=== PATIENT | female | born 1930 | race Caucasian/White ===

== ENCOUNTER → 2016-11-13 | Outpatient (CLI) | payer OTHER ==
--- NOTE | 2016-11-13 16:24 | MAMMOGRAPHY REPORT ---
BILATERAL DIGITAL SCREENING MAMMOGRAM WITH CAD: 11/13/2016 CLINICAL HISTORY: Routine screening. Patient has no complaints. TECHNIQUE: Bilateral CC and MLO views were obtained. Current study was also evaluated with a Comput er Aided Detection (CAD) system. COMPARISON: Comparison is made to exams dated: 11/08/2015 mammogram, 08/15/2013 mammogram, 08/09/2011 ma mmogram, 08/04/2010 mammogram, 11/04/2014 ultrasound, and 11/04/2014 mammogram - [facility] enter. BREAST COMPOSITION: There are scattered areas of fibroglandular density in both breasts. FINDINGS: There are several scattered benign coarse calcifications in the breasts. However, there i s a possible grouping of small punctate microcalcifications in the far posterior left breast, slight ly lateral to the posterior nipple line on the CC view. These are not clearly identified on the MLO view. Additional spot magnification views are recommended. No other suspicious mass, architectural distortion or cluster of suspicious microcalcifications is s een. IMPRESSION: ACR BI-RADS CATEGORY 0: INCOMPLETE EVALUATION: NEED ADDITIONAL IMAGING EVALUATION The possible grouping of microcalcifications in the left posterior breast need additional evaluation . The patient will be called to schedule an appointment. Approximately 10% of breast cancers are not detected with mammography. A negative mammographic repor t should not delay biopsy if a clinically suggestive mass is present. Jordyn Shields M.D. ay/:11/13/2016 14:42:47 Diesel Locomotive Engineer: Leslie CONLEY(Lupe)(Hillary), [facility] letter sent: Addl Imaging 0 BI-RADS Code: ACR BI-RADS Category 0: Incomplete Evaluation: Need Additional Imaging Evaluation
== END | disposition home or self-care (01) ==
LOC: C.MAMM 14:02
PROVIDERS: ATTEND Family Medicine
DX: Z12.31 Encounter for screening mammogram for malignant neoplasm of breast (principal); R92.8 Other abnormal and inconclusive findings on diagnostic imaging of breast

== ENCOUNTER → 2016-11-24 | Outpatient (CLI) | payer OTHER ==
--- NOTE | 2016-11-24 13:33 | MAMMOGRAPHY REPORT ---
UNILATERAL LEFT DIGITAL DIAGNOSTIC MAMMOGRAM: 11/24/2016 CLINICAL HISTORY: Callback from screening mammogram for left breast calcifications. TECHNIQUE: Spot magnification left CC and ML views were obtained. COMPARISON: Comparison is made to exams dated: 11/13/2016 mammogram, 11/08/2015 mammogram, 11/04/2014 ul trasound, 11/04/2014 mammogram, 08/15/2013 mammogram, and 08/12/2012 mammogram - [facility] nter. BREAST COMPOSITION: There are scattered areas of fibroglandular density in the left breast. FINDINGS: There is a small 2 mm cluster of faint punctate calcifications seen in the left posterior breast along the posterior nipple line on the cc view, not clearly evident on the spot magnificatio n ML views. When compared to prior exams, the calcifications appear stable to the 2016 exam. Addit ionally, the calcifications have been seen on exams dating back to 2012, although it is difficult to assess for stability given differences in mammographic technique (currently using [employer] equipment , previously using [employer] equipment). Given that the calcifications have been present for years, the ca lcifications are probably benign. Recommend short interval follow-up in 6 months to confirm stabili ty on spot magnification views. IMPRESSION: ACR-BI-RADS CATEGORY 3: PROBABLY BENIGN Small 2 mm cluster of punctate calcifications in the left posterior breast has been seen going back to at least the 2012 exam, and is probably benign. Recommend follow-up diagnostic mammograms of the left breast in 6 months to confirm stability on spot magnification views. The patient has been verbally notified of the results. Approximately 10% of breast cancers are not detected with mammography. A negative mammographic repor t should not delay biopsy if a clinically suggestive mass is present. Gosia Hearn M.D. /:11/24/2016 09:48:20 Supervisor Alteration Workroom: Maria Alejandra KHANNA)(Hillary), [facility] letter sent: Follow Up Recommended 3 BI-RADS Code: ACR-BI-RADS Category 3: Probably Benign
== END | disposition home or self-care (01) ==
LOC: C.MAMM 09:19
PROVIDERS: ATTEND Family Medicine
DX: R92.1 Mammographic calcification found on diagnostic imaging of breast (principal)

== ENCOUNTER → 2017-04-18 | Outpatient (CLI) | payer OTHER ==
--- NOTE | 2017-04-18 11:50 | DIAGNOSTIC IMAGING REPORT ---
(RENAL)RETROPERITON COMP CLINICAL HISTORY: 86 years-old Female presenting with chronic kidney disease. TECHNIQUE: Real-time grayscale and limited color Doppler ultrasound imaging of the kidneys and bladder was performed. COMPARISON: None. FINDINGS: Right kidney: Normal echogenicity. Right kidney measures 11.2 cm. No hydronephrosis. No convincing evidence of calculus or mass. Normal perfusion. Left kidney: Normal echogenicity. Left kidney measures 7.2 cm. No hydronephrosis. 6 x 4 mm hyperechogenic focus at the lower pole of the left kidney with associated twinkling artifact on color Doppler consistent with calculus. Lobular relatively hypoechogenic focus at the interpolar region laterally, may represent dominant lobulations, although this is indeterminate. Normal perfusion. Bladder: No bladder wall thickening. Bilateral ureteral jets present. Other: None. IMPRESSION: 1. 6 mm left renal calculus. No hydronephrosis. 2. Lobular hypoechoic interpolar region in the left kidney may represent prominent lobulations, although this is indeterminate and would be better characterized on cross-sectional imaging. Electronically signed by: Lui Charles M.D. 04/18/2017 11:48 AM Dictated Date/Time: 04/18/2017 11:45 AM
== END | disposition home or self-care (01) ==
LOC: C.ULTR 10:41
PROVIDERS: ATTEND Internal Medicine Nephrology
DX: N18.3 Chronic kidney disease, stage 3 (moderate) (principal); N20.0 Calculus of kidney

== ENCOUNTER → 2017-05-28 | Outpatient (CLI) | payer OTHER ==
--- NOTE | 2017-05-28 13:35 | MAMMOGRAPHY REPORT ---
UNILATERAL LEFT DIGITAL DIAGNOSTIC MAMMOGRAM TOMOSYNTHESIS WITH CAD: 05/28/2017 CLINICAL HISTORY: 86-year-old woman presents for follow-up in the left breast of a small 2 mm cluster of punctate microcalcifications in the 6:00 far posterior breast. TECHNIQUE: Left CC and MLO 2-D and Surendra Cheema symphysis, Spot magnification left CC and ML views we re obtained. Current study was also evaluated with a Computer Aided Detection (CAD) system. COMPARISON: Comparison is made to exams dated: 11/24/2016 mammogram, 11/13/2016 mammogram, 11/08/2015 ma mmogram, 11/04/2014 mammogram, 08/15/2013 mammogram, and 08/12/2012 mammogram - [facility]. BREAST COMPOSITION: There are scattered areas of fibroglandular density in the left breast. FINDINGS: The parenchymal pattern of the left breast is similar to prior mammograms. There are nume salud benign rounded rim calcification scattered in the breast. A 2 mm grouping of punctate microcalc ifications is again seen in the 6:00 far posterior left breast, which is stable compared to the spot magnification views obtained 11/24/2016, and these micro-calcifications have also been present dating back to at least 08/12/2012, given slight differences in technique. Given that length of stability they are probably benign, but another short interval follow-up left diagnostic mammogram including sp ot magnification views is recommended to ensure longer stability on the spot magnification views. No other suspicious mass, architectural distortion or cluster of microcalcifications is seen. IMPRESSION: ACR-BI-RADS CATEGORY 3: PROBABLY BENIGN There is a stable 2 mm grouping of punctate microcalcifications in the 6:00 posterior left breast com pared to spot magnification views performed in November 2016 and likely dating back to at least 2012. A nother six-month follow-up left diagnostic mammogram including spot magnification views is recommende d to ensure longer stability. Annual right mammography will also be due at that time. These results and recommendations were discussed with the patient at the time of the exam. Approximately 10% of breast cancers are not detected with mammography. A negative mammographic report should not delay biopsy if a clinically suggestive mass is present. Jordyn Shields M.D. ay/:05/28/2017 11:19:33 Hand Counter: Bárbara Knee RT(R)(M), [facility] letter sent: Follow Up Recommended 3 BI-RADS Code: ACR-BI-RADS Category 3: Probably Benign
== END | disposition home or self-care (01) ==
LOC: C.MAMM 10:26
PROVIDERS: ATTEND Family Medicine
DX: R92.8 Other abnormal and inconclusive findings on diagnostic imaging of breast (principal); R92.0 Mammographic microcalcification found on diagnostic imaging of breast

== ENCOUNTER → 2017-08-17 | Outpatient (CLI) | payer OTHER ==
[2017-08-17 16:01] LABS: BLOOD UREA NITROGEN 34 mg/dl (7-18); CALCIUM 9.4 mg/dl (8.5-10.1); CARBON DIOXIDE 27 mmol/L (21-32); CREATININE 1.64 mg/dl (0.60-1.20); GLUCOSE 110 mg/dl (70-99); POTASSIUM 3.9 mmol/L (3.5-5.1); SODIUM 136 mmol/L (136-145)
== END | disposition home or self-care (01) ==
LOC: C.LAB1850 14:09
PROVIDERS: ATTEND Internal Medicine Nephrology
DX: N18.3 Chronic kidney disease, stage 3 (moderate) (principal); I12.9 Hypertensive chronic kidney disease with stage 1 through stage 4 chronic kidney disease, or unspecified chronic kidney disease; E87.5 Hyperkalemia

== ENCOUNTER → 2017-11-16 | Outpatient (CLI) | payer OTHER ==
--- NOTE | 2017-11-19 07:45 | MAMMOGRAPHY REPORT ---
BILATERAL DIGITAL DIAGNOSTIC MAMMOGRAM TOMOSYNTHESIS WITH CAD: 11/16/2017 CLINICAL HISTORY: Short interval follow-up of left breast calcifications. Routine mammography of the right breast. The patient reports no current complaints. TECHNIQUE: Breast tomosynthesis in addition to standard 2D mammography was performed. Current study was also evaluated with a Computer Aided Detection (CAD) system. Bilateral CC and MLO 2D and tomosyn thesis images and spot magnification left CC and ML views were obtained. COMPARISON: Comparison is made to exams dated: 05/28/2017 mammogram, 11/24/2016 mammogram, 11/13/2016 mammogram, 11/08/2015 mammogram, 11/04/2014 mammogram, and 08/15/2013 mammogram - [facility] nter. BREAST COMPOSITION: There are scattered areas of fibroglandular density in both breasts. FINDINGS: Again noted is a small 2 mm grouping of punctate benign-appearing calcifications in the le ft posterior central/6:00 breast. The calcifications are stable on spot magnification views dated 2016, and are likely not significantly changed dating back to the 2012 exam when accounting for d ifferences in mammographic technique. The calcifications are considered benign given the morphology and long-term stability. The remainder of both breasts are stable compared to prior exams, without s uspicious masses, calcifications, or areas of architectural distortion noted. Scattered bilateral be nign-appearing calcifications are not significantly changed. Circular markers tanisha multiple bilatera l moles. IMPRESSION: ACR BI-RADS CATEGORY 2: BENIGN Small 2 mm group of benign-appearing calcifications in the left posterior breast are stable compared to the November 2016 exam and likely also the 2012 exam, and are considered benign given long-term stabi lity. There is no mammographic evidence of malignancy in either breast. A 1 year screening mammogram is recommended. The patient has been verbally notified of the results. Approximately 10% of breast cancers are not detected with mammography. A negative mammographic report should not delay biopsy if a clinically suggestive mass is present. Gosia Hearn M.D. /:11/16/2017 10:48:39 Nursing Specialist: Christi CONLEY(Lupe)(Hillary), [facility] letter sent: Normal 1/2 BI-RADS Code: ACR BI-RADS Category 2: Benign
== END | disposition home or self-care (01) ==
LOC: C.MAMM 09:52
PROVIDERS: ATTEND Family Medicine
DX: R92.1 Mammographic calcification found on diagnostic imaging of breast (principal)

== ENCOUNTER → 2018-01-22 | Outpatient (CLI) | payer OTHER ==
[~2018-01-22] MED LIST: ACET-24 PO; ADVIN25/60 INH; ALPOPSD OPB; ASPI81TA28 PO; CHOL1000 PO; CLC100 PO; CTP/1 PO; DILT120C68 PO; LATA0.009 OP; LVMI SQ; MULT-506 PO; RXC5 PO; SPRIN/30 INH; TMPXEOPS OPB
[2018-01-22 14:35] LABS: BLOOD UREA NITROGEN 25 mg/dl (7-18); CALCIUM 9.1 mg/dl (8.5-10.1); CARBON DIOXIDE 26 mmol/L (21-32); CREATININE 1.42 mg/dl (0.60-1.20); GLUCOSE 122 mg/dl (70-99); SODIUM 137 mmol/L (136-145)
--- NOTE | 2018-02-12 12:40 | CODING QUERY NO DIAGNOSIS ---
Valid Physician Order Needed A valid physician order must be submitted in order to properly bill for the service(s) provided, including date of service(s), valid diagnosis, and physician signature. If these tests are done on a recurring basis the original physican order must be submitted in order to code and bill for the service(s) provided. Please fax us the original, signed physician order so that we may expedite billing to [phone] DOS 01/22/18 * PARTIAL RENAL PROFILE Thank you Cecilia [facility] Information Management
== END | disposition home or self-care (01) ==
LOC: C.LABSPEC 13:34
PROVIDERS: ATTEND Family Medicine
DX: E11.9 Type 2 diabetes mellitus without complications (principal); N18.9 Chronic kidney disease, unspecified

== ENCOUNTER 2018-03-15 10:27 | Emergency (ER) | payer OTHER ==
[~2018-03-15] VITALS: Ht 162.6 cm; Wt 76.4 kg
[2018-03-15 10:33] VITALS: TEMP 36.8; Ht 162.6 cm; Wt 76.4 kg
--- NOTE | 2018-03-15 11:00 | EMERGENCY ROOM VISIT NOTE ---
History Report prepared by Minoo: Nadine Lawson Under the Supervision of: Dr. Ena Ziegler M.D. First contact with patient: 10:42 Chief Complaint: INFECTION Stated Complaint: CELLULITIS IN BOTH LEGS History of Present Illness The patient is an 87 year old female who presents to the Emergency Room with complaints of a bilateral leg infection beginning 1 month ago. The patient states that she had a shoulder replacement and that since she got home on January 14 she has had a left leg infection. She reports that her right leg then began to get infected the end of February. She states that she was placed on 2 antibiotics and reports that she is still on Bactrim. She denies having any chest pain, shortness of breath, new cough, and fevers. The patient states that she has been able to walk. The patient denies being on blood thinners. She states that she has chronic kidney disease and diabetes. The patient denies a history of a blood clot but states that she had a Doppler of her left leg done on February 21. The patient states that she has compression stockings but that she has not been wearing them. The patient denies a history of any cardiac problems including heart failure, heart attacks, and stents. Source of History: patient Onset: 1 month ago Position: leg (bilateral) Quality: other (infection) Timing: constant Associated Symptoms: No fevers, No cough, No chest pain, No SOB Review of Systems See HPI for pertinent positives & negatives. A total of 10 systems reviewed and were otherwise negative. Past Medical & Surgical Medical Problems: (1) Chronic kidney disease (2) Diabetes (3) DJD of right shoulder Family History Cancer Diabetes mellitus Diabetes mellitus Gallbladder disease Kidney disease Social History Smoking Status: Never Smoker Drug Use: none Marital Status: Housing Status: lives with family Current/Historical Medications Scheduled Aspirin (Aspirin Ec), 81 MG PO QPM Brimonidine Tartrate (Brimonidine Tartrate), 1 DROP OPB BID Cholecalciferol (Vitamin D3), 1 TAB PO QAM Clonidine Hcl (Catapres), 0.15 MG PO HS Diltiazem Hcl (Cardizem), 80 MG PO BID Furosemide (Lasix), 20 MG PO q am Insulin Detemir (Levemir), 14 UNITS SQ QPM Latanoprost (Xalatan 0.005% Oph Zeina), 1 DROPS OP QPM Multivitamin (Multivitamin), 1 TAB PO QAM Sulfa/Trimethoprim (Bactrim Ds 800MG/160MG), 0.5 TAB PO BID Timolol Maleate (Timolol Gfs 0.5% (Generic For Timoptic-Xe)), 1 DROP OPB BID Triamcinolone Acetonide (Topic (Triamcinolone Acet 0.025%), 1 APPLN TOP BID Triamterene/Hctz (Dyazide 37.5MG/25MG), 1 TAB PO DAILY Allergies Coded Allergies: No Known Allergies (Verified , 01/11/18) Physical Exam Vital Signs Date Time Temp Pulse Resp B/P (MAP) Pulse Ox O2 Delivery O2 Flow Rate FiO2 03/15/18 16:56 86 20 162/88 93 03/15/18 14:22 67 20 186/81 94 Room Air 03/15/18 12:23 56 20 158/77 94 Room Air 03/15/18 12:16 54 03/15/18 10:33 36.8 74 20 182/71 98 Room Air Physical Exam Vital signs reviewed. General: Elderly well-appearing female, in no significant distress. HEENT: No scleral icterus, PERRLA, neck supple. Atraumatic. Cardiovascular: Regular rate and rhythm, no extra sounds. Pulmonary: Clear to auscultation bilaterally, normal work of breathing. Abdomen: Soft, nontender, nondistended, positive bowel sounds. Musculoskeletal: Atraumatic. Bilateral lower extremities with right greater than left 2+ pitting edema with erythema to the mid shi. Positive warmth. No lymphangitic streaking. Neurologic: Patient awake alert and oriented x 3 Skin: Warm, dry, no rash Medical Decision & Procedures ER Provider Diagnostic Interpretation: Radiology results as stated below per my review and radiologist interpretation. VENOUS DOPPLER LWR EXT BILA CLINICAL HISTORY: 87 years-old Female presenting with BLE EDEMA. TECHNIQUE: Real-time grayscale and color and spectral Doppler ultrasound imaging of the veins of the bilateral lower extremities was performed. Compression and augmentation were also utilized. COMPARISON: 05/10/2011. FINDINGS: RIGHT: Common femoral vein: Patent. Greater saphenous vein: Patent. Deep femoral vein: Patent. Femoral vein: Patent. Popliteal vein: Patent. Calf veins: Patent allowing for subcutaneous edema. LEFT: Common femoral vein: Patent. Greater saphenous vein: Patent. Deep femoral vein: Patent. Femoral vein: Patent. Popliteal vein: Patent. Calf veins: Patent allowing for subcutaneous edema. Other: Anechoic popliteal cyst in the right popliteal fossa. Subcutaneous edema noted in the bilateral lower extremities. IMPRESSION: No evidence of deep venous thrombosis. Electronically signed by: Lui Charles M.D. 03/15/2018 1:50 PM Dictated Date/Time: 03/15/2018 1:47 PM Laboratory Results 03/15/18 11:15 Red Blood Count 3.89, Mean Corpuscular Volume 99.7, Mean Corpuscular Hemoglobin 32.9, Mean Corpuscular Hemoglobin Concent 33.0, Mean Platelet Volume 9.5, Neutrophils (%) (Auto) 52.3, Lymphocytes (%) (Auto) 36.1, Monocytes (%) (Auto) 8.8, Eosinophils (%) (Auto) 2.3, Basophils (%) (Auto) 0.4, Neutrophils # (Auto) 3.60, Lymphocytes # (Auto) 2.49, Monocytes # (Auto) 0.61, Eosinophils # (Auto) 0.16, Basophils # (Auto) 0.03 03/15/18 11:15 Test 03/15/18 11:15 03/15/18 13:55 03/15/18 14:29 White Blood Count 6.90 K/uL (4.8-10.8) Red Blood Count 3.89 M/uL (4.2-5.4) Hemoglobin 12.8 g/dL (12.0-16.0) Hematocrit 38.8 % (37-47) Mean Corpuscular Volume 99.7 fL (80-100) Mean Corpuscular Hemoglobin 32.9 pg (25-34) Mean Corpuscular Hemoglobin Concent 33.0 g/dl (32-36) Platelet Count 250 K/uL (130-400) Mean Platelet Volume 9.5 fL (7.4-10.4) Neutrophils (%) (Auto) 52.3 % Lymphocytes (%) (Auto) 36.1 % Monocytes (%) (Auto) 8.8 % Eosinophils (%) (Auto) 2.3 % Basophils (%) (Auto) 0.4 % Neutrophils # (Auto) 3.60 K/uL (1.4-6.5) Lymphocytes # (Auto) 2.49 K/uL (1.2-3.4) Monocytes # (Auto) 0.61 K/uL (0.11-0.59) Eosinophils # (Auto) 0.16 K/uL (0-0.5) Basophils # (Auto) 0.03 K/uL (0-0.2) RDW Standard Deviation 46.4 fL (36.4-46.3) RDW Coefficient of Variation 12.8 % (11.5-14.5) Immature Granulocyte % (Auto) 0.1 % Immature Granulocyte # (Auto) 0.01 K/uL (0.00-0.02) Prothrombin Time 10.7 SECONDS (9.0-12.0) Prothromb Time International Ratio 1.0 (0.9-1.1) Activated Partial Thromboplast Time 24.3 SECONDS (21.0-31.0) Partial Thromboplastin Ratio 0.9 Anion Gap 6.0 mmol/L (3-11) Est Creatinine Clear Calc Drug Dose 27.4 ml/min Estimated GFR () 36.4 Estimated GFR (Non- 31.4 BUN/Creatinine Ratio 13.7 (10-20) Calcium Level 9.1 mg/dl (8.5-10.1) Magnesium Level 1.9 mg/dl (1.8-2.4) Total Bilirubin 0.5 mg/dl (0.2-1) Direct Bilirubin 0.1 mg/dl (0-0.2) Aspartate Amino Transf (AST/SGOT) 25 U/L (15-37) Alanine Aminotransferase (ALT/SGPT) 35 U/L (12-78) Alkaline Phosphatase 85 U/L (45-117) Total Protein 7.5 gm/dl (6.4-8.2) Albumin 3.6 gm/dl (3.4-5.0) Urine Color YELLOW Urine Appearance CLEAR (CLEAR) Urine pH 7.0 (4.5-7.5) Urine Specific Zoe 1.006 (1.000-1.030) Urine Protein NEG (NEG) Urine Glucose (UA) NEG (NEG) Urine Ketones NEG (NEG) Urine Occult Blood NEG (NEG) Urine Nitrite NEG (NEG) Urine Bilirubin NEG (NEG) Urine Urobilinogen NEG (NEG) Urine Leukocyte Esterase TRACE (NEG) Urine WBC (Auto) 1-5 /hpf (0-5) Urine RBC (Auto) 0-4 /hpf (0-4) Urine Hyaline Casts (Auto) 0 /lpf (0-5) Urine Epithelial Cells (Auto) 10-20 /lpf (0-5) Urine Bacteria (Auto) NEG (NEG) Bedside Glucose 88 mg/dl (70-90) Laboratory results per my review. Medications Administered Medications (Trade) Dose Ordered Sig/Pavel Route Start Time Stop Time Status Last Admin Dose Admin Furosemide (Lasix Inj) 40 mg NOW STAT IV 03/15/18 15:05 03/15/18 15:06 DC 03/15/18 16:46 40 MG Triamcinolone Acetonide (Kenalog 0.1% Oint) 1 appln NOW STAT EXT 03/15/18 15:05 03/15/18 15:06 DC 03/15/18 16:46 1 APPLN ECG Per My Interpretation Indication: other (infection) Rate (beats per minute): 64 Rhythm: normal sinus Findings: no acute ischemic change, no ectopy, other (left axis deviation) ED Course 1049: Past medical records reviewed. The patient was evaluated in room C9. A complete history and physical examination was performed. 1500: Upon reevaluation, the patient appeared to have improvement of her symptoms. I discussed findings with her. She verbalized agreement of the treatment plan. She was discharged home. Medical Decision Differential diagnosis: Etiologies such as cellulitis, abscess, MRSA infection, DVT, necrotizing fasciitis, dermatitis, drug eruption, stasis dermatitis, as well as others were entertained.. This patient was evaluated and appeared to be in no significant distress. She has almost completed 2 different courses of antibiotics, Keflex and now Bactrim. Patient has no fever, no lymphangitic streaking. Ultrasounds of the bilateral lower extremities are negative for DVT. There is no elevation of the white blood cell count. I suspect the patient's symptoms are related to stasis dermatitis. She was given 40 mg of IV Lasix and will be using triamcinolone cream as well as LINDY stockings. Patient was given a prescription for 20 mg of Lasix daily for the next several days. Due to her history of chronic renal insufficiency, she will have repeat laboratory work done within the next week. She does have an appointment pending with her experimental assembler within that timeframe. Patient was given wound care instructions and will return to the ED for worsening of symptoms or any medical concerns. Medication Reconcilliation Current Medication List: was personally reviewed by me Blood Pressure Screening Patient's blood pressure: Elevated blood pressure Blood pressure disposition: Referred to PCP Impression Primary Impression: Stasis dermatitis of both legs Scribe Attestation The scribe's documentation has been prepared under my direction and personally reviewed by me in its entirety. I confirm that the note above accurately reflects all work, treatment, procedures, and medical decision making performed by me. Departure Information Dispostion Home / Self-Care Prescriptions Furosemide (LASIX) 20 Mg Tab 20 MG PO q am for 10 Days, #10 TAB Prov: Ena Ziegler M.D. 03/15/18 Triamcinolone Acetonide (Topic (TRIAMCINOLONE ACET 0.025%) 0.025 % Oin 1 APPLN TOP BID, #30 GM 1 Refill Prov: Ena Ziegler M.D. 03/15/18 Referrals Dana Ann M.D. (PCP) Forms HOME CARE DOCUMENTATION FORM, IMPORTANT VISIT INFORMATION, WORK / SCHOOL INSTRUCTIONS Patient Instructions My [facility] Additional Instructions Diagnosis: Stasis dermatitis of the bilateral legs Triamcinolone cream 1-2 times daily to the bilateral legs. Wear compression hose during the day or while on your feet. Please elevate the feet as much as possible. Lasix 20 mg daily in the morning. Follow-up with your experimental assembler next week for reevaluation, high blood work done 2 days prior to your appointment. Return to the emergency department for worsening of symptoms or any medical concerns.
[2018-03-15] MEDS ORDERED: TRIA37.5 PO (11:02)
[2018-03-15] MEDS ORDERED: CLON0.3T PO (11:02)
[2018-03-15] MEDS ORDERED: DILT40TA2 PO (11:02)
[2018-03-15] MEDS ORDERED: SULF800T23 PO (11:02)
[2018-03-15 11:36] LABS: BASO % 0.4 %; BASO ABS # 0.03 K/uL (0-0.2); EOS % 2.3 %; EOS ABS # 0.16 K/uL (0-0.5); HEMATOCRIT 38.8 % (37-47); HEMOGLOBIN 12.8 g/dL (12.0-16.0); IG# 0.01 K/uL (0.00-0.02); LYMPH % 36.1 %; LYMPH ABS # 2.49 K/uL (1.2-3.4); MEAN CELL VOLUME 99.7 fL (80-100); MEAN CORPUSCULAR HEMOGLOBIN 32.9 pg (25-34); MEAN PLATELET VOLUME 9.5 fL (7.4-10.4); MONO % 8.8 %; MONO ABS # 0.61 K/uL (0.11-0.59); NEUT % 52.3 %; PLATELET COUNT 250 K/uL (130-400); RED CELL DISTRIBUTION WIDTH CV 12.8 % (11.5-14.5); RED CELL DISTRIBUTION WIDTH SD 46.4 fL (36.4-46.3)
[2018-03-15 11:46] LABS: PTT PATIENT 24.3 SECONDS (21.0-31.0)
[2018-03-15 11:56] LABS: ALBUMIN 3.6 gm/dl (3.4-5.0); CALCIUM 9.1 mg/dl (8.5-10.1); CREATININE 1.5 mg/dl (0.60-1.20); POTASSIUM 4.3 mmol/L (3.5-5.1); TOTAL PROTEIN 7.5 gm/dl (6.4-8.2)
--- NOTE | 2018-03-15 13:51 | DIAGNOSTIC IMAGING REPORT ---
VENOUS DOPPLER LWR EXT BILA CLINICAL HISTORY: 87 years-old Female presenting with BLE EDEMA. TECHNIQUE: Real-time grayscale and color and spectral Doppler ultrasound imaging of the veins of the bilateral lower extremities was performed. Compression and augmentation were also utilized. COMPARISON: 05/10/2011. FINDINGS: RIGHT: Common femoral vein: Patent. Greater saphenous vein: Patent. Deep femoral vein: Patent. Femoral vein: Patent. Popliteal vein: Patent. Calf veins: Patent allowing for subcutaneous edema. LEFT: Common femoral vein: Patent. Greater saphenous vein: Patent. Deep femoral vein: Patent. Femoral vein: Patent. Popliteal vein: Patent. Calf veins: Patent allowing for subcutaneous edema. Other: Anechoic popliteal cyst in the right popliteal fossa. Subcutaneous edema noted in the bilateral lower extremities. IMPRESSION: No evidence of deep venous thrombosis. Electronically signed by: Lui Charles M.D. 03/15/2018 1:50 PM Dictated Date/Time: 03/15/2018 1:47 PM
[2018-03-15] MEDS ORDERED: FUROSEMIDE 40 MG/4 ML VIAL IV STA (15:05)
[2018-03-15] MEDS ORDERED: TRIAMCINOLONE ACET 0.1% OINT 15 GM TUBE EXT STA (15:05)
[2018-03-15] MEDS ORDERED: TRMO2580 TOP (15:40)
[2018-03-15] MEDS ORDERED: FURO20TA PO (15:40)
[2018-03-15 16:56] VITALS: BP 162/88; PULSE 86; O2SAT 93
== END 2018-03-15 16:58 | disposition home or self-care (01) ==
LOC: C.EDB 10:28 → C.EDC 16:58
DX: L30.9 Dermatitis, unspecified (principal); N18.9 Chronic kidney disease, unspecified; E11.9 Type 2 diabetes mellitus without complications; M19.011 Primary osteoarthritis, right shoulder; Z79.82 Long term (current) use of aspirin; Z79.2 Long term (current) use of antibiotics; Z79.899 Other long term (current) drug therapy

== ENCOUNTER → 2018-03-20 | Outpatient (CLI) | payer OTHER ==
[~2018-03-20] MED LIST changes: -ACET-24 PO; -ADVIN25/60 INH; -CLC100 PO; +CLON0.3T PO; -CTP/1 PO; -DILT120C68 PO; +DILT40TA2 PO; +FURO20TA PO; -RXC5 PO; -SPRIN/30 INH; +SULF800T23 PO; +TRIA37.5 PO; +TRMO2580 TOP
[2018-03-20 11:07] LABS: ALBUMIN 3.6 gm/dl (3.4-5.0); BLOOD UREA NITROGEN 27 mg/dl (7-18); CALCIUM 9.3 mg/dl (8.5-10.1); CARBON DIOXIDE 30 mmol/L (21-32); CREATININE 1.44 mg/dl (0.60-1.20); GLUCOSE 134 mg/dl (70-99); PHOSPHORUS 3.1 mg/dl (2.5-4.9); POTASSIUM 4.2 mmol/L (3.5-5.1); SODIUM 137 mmol/L (136-145)
== END | disposition home or self-care (01) ==
LOC: C.LAB1850 09:28
PROVIDERS: ATTEND Internal Medicine Nephrology
DX: E87.5 Hyperkalemia (principal)

== ENCOUNTER 2021-09-21 12:02 | Inpatient (IN) ==
[2021-09-21 12:50] LABS: Basophils # (auto) 0.03 K/uL (0-0.2); Basophils % (auto) 0.3 %; Eosinophils # (auto) 0.04 K/uL (0-0.5); Eosinophils % (auto) 0.3 %; Hematocrit (blood only) 34.2 % (37-47); Hemoglobin 10.4 g/dL (12.0-16.0); Immature Granulocytes # (auto) 0.03 K/uL (0.00-0.02); Immature Granulocytes % (auto) 0.3 %; Lymphocytes # (auto) 1.35 K/uL (1.2-3.4); Lymphocytes % (auto) 11.7 %; Mean Corpuscular Hemoglobin 31.3 pg (25-34); Mean Corpuscular Hgb Conc 30.4 g/dL (32-36); Mean Platelet Volume 9.5 fL (7.4-10.4); Monocytes % (auto) 10.4 %; Neutrophils # (auto) 8.89 K/uL (1.4-6.5); Platelet Count 351 K/uL (130-400); RDW Coefficient of Variation 16.9 % (11.5-14.5); RDW Standard Deviation 63.6 fL (36.4-46.3); Red Blood Count 3.32 M/uL (4.2-5.4); White Blood Count 11.54 K/uL (4.8-10.8)
--- NOTE | 2021-09-21 12:51 | Emergency Department Note ---
Impression & Plan Acute pain of left hip, Weakness, Hypercalcemia, Metastatic cancer, Fall, Multiple episodes of hypoglycemia ED Provider Note Provider: Josué Mccauley MD DATE OF SERVICE: 09/18/2021 CHIEF COMPLAINT: Fall, low blood sugar HISTORY OF PRESENT ILLNESS: Patient is a 89-year-old female history of type 2 diabetes on insulin, CKD, and a relapse of weeks general decline presenting here via ambulance today after low blood sugar this morning. Patient evidently had a low blood sugar yesterday at 31 and EMS was called and improved with the D10 infusion and she stayed at home. Patient has not been eating well over the last several weeks and been having worsening . Low back and left hip pain. Has been working with outpatient doctor for this and had a recent lumbar CT questioning some possible lesions in lymph nodes and a schedule for additional imaging this coming Sunday. Still taking NovoLog twice daily. Not much to eat earlier. Blood sugar dropped again and she slid to the floor. Did not fall or strike her head. Denies any head pain or neck pain. Complains mainly pain of the low back and left hip region. Patient is not been ambulating that well. Patient denies chest pain or shortness of breath. No fevers reported. Blood sugars improved after additional D10 today. REVIEW OF SYSTEMS: A total of 10 review of systems was obtained and negative except as stated above in the HPI. PAST MEDICAL HISTORY: As noted above MEDICATIONS: Reviewed home medication list SOCIAL HISTORY: Lives at home with son, former smoker PHYSICAL EXAM: GENERAL: alert and oriented in no acute distress on stretcher Head: normocephalic and atraumatic EYES: No injection, discharge or icterus. NECK: Trachea midline. Supple. ENT: Mucous membranes pink and moist. LUNGS: Airway patent. No retractions. Breath sounds clear HEART: Regular rate and rhythm. No chest wall tenderness ABDOMEN: Soft and non-tender, without guarding or rebound. SKIN: Acyanotic, warm, dry, without rashes EXTREMITIES: Without swelling, tenderness or deformity except some pain in the left hip with movement active or passive. No significant swelling or tenderness of the bilateral knees, calves, or feet. NEUROLOGICAL: No focal deficits. No aphasia. No facial droop or slurred speech. Normal strength and tone in the extremities. Sensation to gross touch normal. EK bpm normal sinus rhythm. Left axis. No PVC or PAC. No acute ST segment elevation or depression. QTC 400. CONTINUOUS CARDIAC MONITORING: was ordered and showed a heart rate of 60s-80s bpm in normal sinus rhythm GCS 15. Patient's laboratory studies and imaging reviewed. Differential includes traumatic, infection, dehydration, metabolic abnormality, hypo/hyperglycemia, electrolyte disturbance, anemia, hypoxia, cardiac sources, intracerebral event, toxicologic, neurologic, as well as other pathologies. IMPRESSION/MEDICAL DECISION MAKING: Patient with episode of hypoglycemia yesterday and today. General decline last several weeks. Outpatient CT due to lower back pain was previously obtained questioning possible lytic lesions and lymph node or possible oncological process. Patient not eating so well and while on standing insulin likely precipitating these hypoglycemic events. Patient likely needs reduction of her standing insulin regimen. Basic blood work-up was completed here to look for other abnormalities signs of worsened renal function. Given that she did slide to the ground of the question of possible underlying oncological lesions in the back, CT of the chest as well as the abdomen pelvis were obtained including the left hip. Prior left hip replacement I doubt this is fractured. There is no shortening of the lower extremities or acute numbness newly reported in lower legs. I doubt acute spinal cord injury. Did not strike her head and on high risk medications having symptoms in discussion with the patient and daughter will avoid additional imaging of the head and neck at this time. Blood work with slightly worsened anemia. Renal function has a somewhat better than previous. No LFT abnormalities. TSH within normal limits. CT imaging per radiology without acute fractures but evidence of likely widely metastatic disease with masses in the bilateral breasts and multiple enlarged lymph nodes. Evidence of extensive disease again around the left kidney towards the left acetabular region. Informed the patient and daughter bedside of the findings. Discussed high likelihood of an oncological process and need for further work-up for this. Patient has not been significantly hypoxic after initial assessment here in the ER. Patient given additional Tylenol and fentanyl but still with s ignificant pain in the left hip. Has been on a fairly decent regimen of hydrocodone at home. Given her difficulty ambulating discussed with the patient and daughter her ability to go home. Patient has concerns regarding this. Patient likely needs a reduced insulin regimen for her hypoglycemic episodes but also a pain control regimen for function ability. Will again need outpatient follow-up with oncology and biopsy to further determine etiology of masses. Patient evidently deferred prior work-up from mammography 7 years ago. Mild hypercalcemia and given some IV fluid here. Ambulatory dysfunction and poor pain control the hospitalist was contacted for further pain control and care her e. Patient and daughter aware of need for further oncological follow-up. DIAGNOSIS: Hypoglycemic episode, fall, low back/left hip pain, hypercalcemia, ambulatory dysfunction, multiple masses concerning for metastatic cancer DISPOSITION: Being evaluated by hospitalist Patient was agreeable with this plan. Past Med/Surg History Medical History (Updated 09/21/21 @ 17:25 by Josué Mccauley M.D.) Chronic kidney disease, stage 3 Chronic obstructive pulmonary disease (COPD) Diabetes mellitus type 2 in nonobese Essential hypertension Osteoarthritis Surgical History S/p reverse total shoulder arthroplasty S/P total hip arthroplasty Family History Denies family history of Kidney disease Social History Smoking Status: Current every day smoker Tobacco Type: Cigarettes Current Living Situation: Family Current Living Situation Comment: lives with son Feels Safe at Home: Yes Allergies Allergies Allergy/AdvReac Type Severity Reaction Status Date / Time No Known Allergies Allergy Verified 09/21/21 15:01 Home Meds Home Medications Medication Instructions Recorded Confirmed aspirin 81 mg tablet,delayed 81 mg PO DAILY tab 03/18/19 09/21/21 release brimonidine 0.2 % eye drops 1 drops OP BID ml 03/18/19 09/21/21 diltiazem HCl 90 mg tablet 90 mg PO TID tab 03/18/19 09/21/21 latanoprost 0.005 % eye drops 1 drops OP HS ml 03/18/19 09/21/21 multivitamin (Daily Multi-Vitamin) 1 tab PO DAILY 03/18/19 09/21/21 glucos sul [id number] 1 cap PO BID 04/01/19 09/21/21 [Glucosamine Chondroitin] cholecalciferol (vitamin D3) 25 25 mcg PO DAILY 10/03/19 09/21/21 mcg (1,000 unit) capsule fluticasone 250 mcg-salmeterol 50 1 puffs INH BID 10/03/19 09/21/21 mcg/dose blistr powdr for inhalation (Advair Diskus) insulin aspar prot-insulin aspart 10 units SQ BID 12/26/19 09/21/21 100 unit/mL (70-30) subcutaneous pen (Novolog Mix 70-30FlexPen U-100) dorzolamide 2 %-timolol 0.5 % (PF) 1 drp OPHTHALMIC (EYE) BID 04/26/20 09/21/21 eye drops triamcinolone acetonide 0.1 % 1 applic TOPICAL BID 04/07/21 09/21/21 topical cream Previous Rx's Medication Instructions Recorded clonidine HCl 0.1 mg tablet 0.1 mg PO DAILY #90 tab 04/07/21 vitamin B complex 1 tab PO DAILY #90 tab 04/07/21 lisinopril 10 mg tablet 10 mg PO DAILY #90 tab 05/17/21 Results & Data (ED) Vital Signs Vital Signs - 24 hr 09/21/21 12:07 09/21/21 12:50 09/21/21 16:49 Temperature 36.6 C Temperature Source Oral Pulse Rate 61 58 L 77 Respiratory Rate 20 20 20 Respiratory Effort / Characteristics Non-Labored Spontaneous Respiratory Depth Normal Respiratory Pattern Regular Blood Pressure 167/65 H 154/102 H Blood Pressure Mean 99 119 Blood Pressure Position Sitting Pulse Oximetry 98 95 98 Oxygen Delivery Method Room Air Nasal Cannula Nasal Cannula Oxygen Flow Rate 2 2 Sepsis Recent Fever Within 48 Hours No Sepsis New/Unexplained Change in Mental Status N/A Sepsis Action Taken by Nursing No Action Required Laboratory Data Result diagrams: 09/21/21 12:29 09/21/21 12:29 Lab Results 09/21/21 09/21/21 09/21/21 Range/Units 12:07 12:29 12:29 WBC 11.54 H (4.8-10.8) K/uL RBC 3.32 L (4.2-5.4) M/uL Hgb 10.4 L (12.0-16.0) g/dL Hct 34.2 L (37-47) % MCV 103.0 H (80-100) fL MCH 31.3 (25-34) pg MCHC 30.4 L (32-36) g/dL RDW Std Deviation 63.6 H (36.4-46.3) fL RDW Coeff of Tyler 16.9 H (11.5-14.5) % Plt Count 351 (130-400) K/uL MPV 9.5 (7.4-10.4) fL Immature Gran % (Auto) 0.3 % Neut % (Auto) 77.0 % Lymph % (Auto) 11.7 % [place] % (Auto) 10.4 % Eos % (Auto) 0.3 % Baso % (Auto) 0.3 % Neut # (Auto) 8.89 H (1.4-6.5) K/uL Lymph # (Auto) 1.35 (1.2-3.4) K/uL [place] # (Auto) 1.20 H (0.11-0.59) K/uL Eos # (Auto) 0.04 (0-0.5) K/uL Baso # (Auto) 0.03 (0-0.2) K/uL Immature Gran # (Auto) 0.03 H (0.00-0.02) K/uL Sodium 140 (136-145) mmol/L Potassium 4.1 (3.5-5.1) mmol/L Chloride 108 H (98-107) mmol/L Carbon Dioxide 27 (21-32) mmol/L Anion Gap 5 (3-11) BUN 31 H (6-23) mg/dl Creatinine 1.66 H (0.6-1.2) mg/dl Est Cr Clr Drug Dosing 23.3 ml/min Est GFR ( Amer) 31.6 ml/min Est GFR (Non-Af Amer) 27.2 ml/min BUN/Creatinine Ratio 18.7 (10-20) Glucose 85 (70-99(Fasting)) mg/dl POC Glucose 155 H (70-99) mg/dl Calcium 11.6 H (8.5-10.1) mg/dl Magnesium 2.2 (1.7-2.4) mg/dl Total Bilirubin 0.5 (0.2-1.0) mg/dl AST 38 (13-39) U/L ALT 22 (7-52) U/L Alkaline Phosphatase 115 H (34-104) U/L Troponin I 0.03 (0-0.04) ng/ml Total Protein 6.4 (6.0-8.3) gm/dl Albumin 3.1 L (3.4-5.0) gm/dl Globulin 3.3 (2.5-4.0) gm/dl Albumin/Globulin Ratio 0.9 (0.9-2) TSH (0.300-4.500) uIu/ml 09/21/21 Range/Units 12:29 WBC (4.8-10.8) K/uL RBC (4.2-5.4) M/uL Hgb (12.0-16.0) g/dL Hct (37-47) % MCV (80-100) fL MCH (25-34) pg MCHC (32-36) g/dL RDW Std Deviation (36.4-46.3) fL RDW Coeff of Tyler (11.5-14.5) % Plt Count (130-400) K/uL MPV (7.4-10.4) fL Immature Gran % (Auto) % Neut % (Auto) % Lymph % (Auto) % [place] % (Auto) % Eos % (Auto) % Baso % (Auto) % Neut # (Auto) (1.4-6.5) K/uL Lymph # (Auto) (1.2-3.4) K/uL [place] # (Auto) (0.11-0.59) K/uL Eos # (Auto) (0-0.5) K/uL Baso # (Auto) (0-0.2) K/uL Immature Gran # (Auto) (0.00-0.02) K/uL Sodium (136-145) mmol/L Potassium (3.5-5.1) mmol/L Chloride (98-107) mmol/L Carbon Dioxide (21-32) mmol/L Anion Gap (3-11) BUN (6-23) mg/dl Creatinine (0.6-1.2) mg/dl Est Cr Clr Drug Dosing ml/min Est GFR ( Amer) ml/min Est GFR (Non-Af Amer) ml/min BUN/Creatinine Ratio (10-20) Glucose (70-99(Fasting)) mg/dl POC Glucose (70-99) mg/dl Calcium (8.5-10.1) mg/dl Magnesium (1.7-2.4) mg/dl Total Bilirubin (0.2-1.0) mg/dl AST (13-39) U/L ALT (7-52) U/L Alkaline Phosphatase (34-104) U/L Troponin I (0-0.04) ng/ml Total Protein (6.0-8.3) gm/dl Albumin (3.4-5.0) gm/dl Globulin (2.5-4.0) gm/dl Albumin/Globulin Ratio (0.9-2) TSH 1.757 (0.300-4.500) uIu/ml Administered Medications Discontinued Medications Acetaminophen (Acetaminophen 500 Mg Tab) 1,000 mg PO NOW STA Stop: 09/21/21 14:37 Last Admin: 09/21/21 15:36 Dose: 1,000 mg Documented by: [id number] Fentanyl Citrate (Fentanyl Citrate 100 Mcg/2 Ml Vial) 50 mcg IV NOW STA Stop: 09/21/21 13:21 Last Admin: 09/21/21 13:36 Dose: 50 mcg Documented by: [id number] Fentanyl Citrate (Fentanyl Citrate 100 Mcg/2 Ml Vial) 100 mcg IV NOW STA Stop: 09/21/21 14:35 Last Admin: 09/21/21 15:37 Dose: 100 mcg Documented by: [id number] Sodium Chloride (Nss 1000ml) 1,000 mls @ 999 mls/hr IV .Q1H1M ONE Stop: 09/21/21 16:35 Last Admin: 09/21/21 16:33 Dose: 999 mls/hr Documented by: [id number] Imaging Data Radiologist's Impression: Abdomen/Pelvis CT 09/21/21 12:41 CT abd pelvis wo con CLINICAL HISTORY: fall, weak, low back pain to L hip TECHNIQUE: Helical axial images of the abdomen and pelvis were obtained. Automated dose lowering techniques and/or adjustment according to patient size were utilized for this exam. This exam was performed without intravenous contrast. COMPARISON: None available at the time of this dictation. FINDINGS: Lower chest: For findings above the diaphragm, please see CT chest performed same day. Liver: Numerous hypodense lesions are again seen in the liver. Most prominent measure 3.6 cm in segment IVb and 9 cm in segment 7. Gallbladder and biliary tree: No calcified gallstones. Normal caliber wall. No intra- or extrahepatic biliary ductal dilation. Pancreas: Unremarkable, no focal lesions. Spleen: Unremarkable. Adrenals: Prominent left adrenal nodule measuring 17 mm. Kidneys and ureters: The left kidney is atrophic. Bladder: Unremarkable. Reproductive organs: Unremarkable. Bowel: Unremarkable. Lymph nodes Retroperitoneal: Bulky retroperitoneal masses are seen measuring up to 6 x 5 cm on the left and 2.3 x 3.0 cm on the right. Evaluation is limited by lack of IV contrast. Multiple left pararenal nodules are seen measuring up to [address] Numerous smaller retroperitoneal nodes are seen. Mesenteric: There are enlarged lymph nodes measuring up to 14 mm in diameter. Pelvic: Numerous enlarged inguinal lymph nodes are seen, right greater than left, measuring up to 2 cm. Peritoneum: A small amount of fat stranding is seen. No ascites is seen. Vessels: Atherosclerotic calcifications are seen. Evaluation is limited by noncontrast technique. Abdominal wall: Body wall edema is seen. Bones: Patient is status post left total hip arthroplasty. There is a lytic lesion with associated soft tissue mass in the iliac bone measuring approximately 4.0 x 3.6 cm. Degenerative changes are seen. There is a lytic lesi on in the inferior aspect of the T12 vertebral body with mild associated compression deformity. IMPRESSION: 1. Age-indeterminate compression deformity of the T12 vertebral body. There is an underlying lytic lesion as well as a lytic lesion in the left iliac bone concerning for malignancy. 2. Extensive lymphadenopathy in the retroperitoneal, mesenteric, and pelvic regions. Soft tissue masses are seen in the left perinephric space. Findings are compatible with metastatic malignancy. 3. Left adrenal nodule is nonspecific but metastatic disease cannot be excluded. ACT 112: Negative or not required by law. Electronically signed by: Roge Duke M.D. 09/21/2021 2:[address] 09/21/21 12:41 CT chest diagnostic wo con CLINICAL HISTORY: fall, weak TECHNIQUE: Multidetector row helical CT of the chest was performed. Coronal and sagittal reformations were obtained. Automated dose lowering techniques and/or adjustment according to patient size were utilized for this exam Comparison: Comparison is made to chest radiograph 12/27/2017 FINDINGS: Lungs and pleura: There is a small left and trace right pleural effusion with underlying atelectasis. Multiple tiny nodules are seen including a 4 mm nodule in the right upper lobe (series 6 image 68), a 3 mm nodule in the left upper lobe (image 95), 3 mm pleural-based nodule in the right upper lobe (image 99) and 3 mm nodule in the right middle lobe (image 192). Heart and pericardium: Cardiomegaly is seen with biatrial enlargement. Vessels: Severe atherosclerotic changes in the aorta and coronary arteries. Pulmonary trunk measures 35 mm in diameter. Mediastinum and juan: Unremarkable. Chest wall and lower neck: There is a soft tissue mass in the left breast measuring 2 cm in diameter. A right breast soft tissue mass measures 1 cm in diameter. There is an enlarged right axillary lymph node measuring 12 mm in diameter as well as smaller but prominent subcentimeter nodes. Abdomen: For findings below the diaphragm, please refer to CT of the abdomen dated the same. Bones: Severe degenerative changes are seen in the spine and left glenohumeral joint. Patient is status post right reverse shoulder arthroplasty. IMPRESSION: 1. No evidence of acute fractures. 2. Small left and trace right pleural effusion with associated atelectasis. Tiny pulmonary nodules as above. 3. Soft tissue masses in the bilateral breasts with prominent right axillary lymph nodes. Correlation with mammography is recommended exclude malignancy. ACT 112: Negative or not required by law. Electronically signed by: Roge Duke M.D. 09/21/2021 1:[address] 09/21/21 12:42 CT hip LT wo con HISTORY: 89 years-old Female fall, pain acute left hip pain status post fall COMPARISON: CT lumbar spine 09/15/2021, CT chest, abdomen and pelvis 09/21/2021 TECHNIQUE: Multiple axial CT images of the left hip were obtained without the use of IV contrast. A dose lowering technique was used consistent with the principals of ALARA. FINDINGS: Left hip total joint arthroplasty. There is a large destructive lytic mass measuring approximately 4.0 x 3.6 cm involving the medial cortex of the left iliac bone/superior acetabulum. Soft tissue component extends into the left iliacus muscle. Tiny lucent cortical lesion of the left inferior pubic ramus on image 161. No evidence of hardware fracture or loosening. The left proximal femur appears intact. Mild asymmetric left anterior urinary bladder wall thickening with perivesicular stranding. Pathologically enlarged bilateral inguinal chain lymph nodes. Mild perirectal edema with cystic soft tissue prominence within the anorectal junction. IMPRESSION: 1. Large destructive lytic left iliac/superior acetabular mass with soft tissue component extending into the iliacus muscle. No acute fracture. Findings are compatible with metastatic disease. 2. Metastatic inguinal chain adenopathy. 3. Please refer to the CT chest, abdomen and pelvis of same day for discussion of the additional metastatic lesions. ACT 112: Negative or not required by law. The above report was generated using voice recognition software. It may contain grammatical, syntax or spelling errors. Electronically signed by: Douglas Ferrari M.D. 09/21/2021 1:43 PM Discharge Plan Visit Data Chief Complaint: Hypoglycemia Stated Complaint: LOW BLOOD SUGAR ED Provider: Josué Mccauley Discharge Problem: Acute pain of left hip, Weakness, Hypercalcemia, Metastatic cancer, Fall, Multiple episodes of hypoglycemia Patient Disposition: Being Evaluated by Hospitalist Forms Stand Alone Forms: My [facility] [employer] Prescriptions Prescriptions: No Action lisinopril 10 mg tablet 10 mg PO DAILY Qty: 90 RF: 3 cholecalciferol (vitamin D3) 25 mcg (1,000 unit) capsule 25 mcg PO DAILY RF: 0 fluticasone propion-salmeterol [Advair Diskus] 250-50 mcg/dose blister with device 1 puffs INH BID RF: 0 triamcinolone acetonide 0.1 % cream 1 applic topical BID RF: 0 vitamin B complex Tablet 1 tab PO DAILY Qty: 90 RF: 3 clonidine HCl 0.1 mg tablet 0.1 mg PO DAILY Qty: 90 RF: 3 dorzolamide-timolol (PF) 2-0.5 % drops 1 drp ophthalmic (eye) BID RF: 0 diltiazem HCl 90 mg tablet 90 mg PO TID RF: 0 brimonidine 0.2 % drops 1 drops OP BID RF: 0 latanoprost 0.005 % drops 1 drops OP HS RF: 0 aspirin 81 mg tablet,delayed release (DR/EC) 81 mg PO DAILY RF: 0 multivitamin [Daily Multi-Vitamin] tablet 1 tab PO DAILY RF: 0 glucos sul [id number]-C-Mn 1 cap PO BID RF: 0 insulin asp prt-insulin aspart [Novolog Mix 70-30FlexPen U-100] 100 unit/mL (70-30) insulin pen 10 units SQ BID RF: 0 Referrals Referrals: Dana Ann MD [Primary Care Provider] -
[2021-09-21 13:19] LABS: Albumin Globulin Ratio 0.9 (0.9-2); Albumin Level 3.1 gm/dl (3.4-5.0); BUN Creatinine Ratio 18.7 (10-20); Bilirubin,Total 0.5 mg/dl (0.2-1.0); Calcium 11.6 mg/dl (8.5-10.1); Creatinine Clr Calc Pharmacy 23.3 ml/min; Est GFR (African American) 31.6 ml/min; Est GFR (Non-African American) 27.2 ml/min; Globulin 3.3 gm/dl (2.5-4.0); Magnesium 2.2 mg/dl (1.7-2.4); Potassium 4.1 mmol/L (3.5-5.1); Total Protein 6.4 gm/dl (6.0-8.3); Troponin I 0.03 ng/ml (0-0.04)
[2021-09-21] MEDS ORDERED: fentaNYL citrate 100 MCG/2 ML VIAL IV STA ×2 (13:20→14:34)
--- NOTE | 2021-09-21 13:43 | CT Scan Report ---
CT chest diagnostic wo con CLINICAL HISTORY: fall, weak TECHNIQUE: Multidetector row helical CT of the chest was performed. Coronal and sagittal reformations were obtained. Automated dose lowering techniques and/or adjustment according to patient size were u tilized for this exam Comparison: Comparison is made to chest radiograph 12/27/2017 FINDINGS: Lungs and pleura: There is a small left and trace right pleural effusion with underlying atelectasis. Multiple tiny nodules are seen including a 4 mm nodule in the right upper lobe (series 6 image 68), a 3 mm nodule in the left upper lobe (image 95), 3 mm pleural-based nodule in the right upper lobe (i mage 99) and 3 mm nodule in the right middle lobe (image 192). Heart and pericardium: Cardiomegaly is seen with biatrial enlargement. Vessels: Severe atherosclerotic changes in the aorta and coronary arteries. Pulmonary trunk measures 35 mm in diameter. Mediastinum and juan: Unremarkable. Chest wall and lower neck: There is a soft tissue mass in the left breast measuring 2 cm in diameter. A right breast soft tissue mass measures 1 cm in diameter. There is an enlarged right axillary lymph node measuring 12 mm in diameter as well as smaller but prominent subcentimeter nodes. Abdomen: For findings below the diaphragm, please refer to CT of the abdomen dated the same. Bones: Severe degenerative changes are seen in the spine and left glenohumeral joint. Patient is stat us post right reverse shoulder arthroplasty. IMPRESSION: 1. No evidence of acute fractures. 2. Small left and trace right pleural effusion with associated atelectasis. Tiny pulmonary nodules a s above. 3. Soft tissue masses in the bilateral breasts with prominent right axillary lymph nodes. Correlatio n with mammography is recommended exclude malignancy. ACT 112: Negative or not required by law. Electronically signed by: Roge Duke M.D. 09/21/2021 1:42 PM
--- NOTE | 2021-09-21 13:45 | CT Scan Report ---
CT hip LT wo con HISTORY: 89 years-old Female fall, pain acute left hip pain status post fall COMPARISON: CT lumbar spine 09/15/2021, CT chest, abdomen and pelvis 09/21/2021 TECHNIQUE: Multiple axial CT images of the left hip were obtained without the use of IV contrast. A d ose lowering technique was used consistent with the principals of LISA. FINDINGS: Left hip total joint arthroplasty. There is a large destructive lytic mass measuring approximately 4. 0 x 3.6 cm involving the medial cortex of the left iliac bone/superior acetabulum. Soft tissue compon ent extends into the left iliacus muscle. Tiny lucent cortical lesion of the left inferior pubic ruben s on image 161. No evidence of hardware fracture or loosening. The left proximal femur appears intact . Mild asymmetric left anterior urinary bladder wall thickening with perivesicular stranding. Pathologi jessica enlarged bilateral inguinal chain lymph nodes. Mild perirectal edema with cystic soft tissue pr ominence within the anorectal junction. IMPRESSION: 1. Large destructive lytic left iliac/superior acetabular mass with soft tissue component extending i nto the iliacus muscle. No acute fracture. Findings are compatible with metastatic disease. 2. Metastatic inguinal chain adenopathy. 3. Please refer to the CT chest, abdomen and pelvis of same day for discussion of the additional meta static lesions. ACT 112: Negative or not required by law. The above report was generated using voice recognition software. It may contain grammatical, syntax o r spelling errors. Electronically signed by: Douglas Ferrari M.D. 09/21/2021 1:43 PM
--- NOTE | 2021-09-21 14:22 | CT Scan Report ---
CT abd pelvis wo con CLINICAL HISTORY: fall, weak, low back pain to L hip TECHNIQUE: Helical axial images of the abdomen and pelvis were obtained. Automated dose lowering tech niques and/or adjustment according to patient size were utilized for this exam. This exam was perfor med without intravenous contrast. COMPARISON: None available at the time of this dictation. FINDINGS: Lower chest: For findings above the diaphragm, please see CT chest performed same day. Liver: Numerous hypodense lesions are again seen in the liver. Most prominent measure 3.6 cm in segme nt IVb and 9 cm in segment 7. Gallbladder and biliary tree: No calcified gallstones. Normal caliber wall. No intra- or extrahepatic biliary ductal dilation. Pancreas: Unremarkable, no focal lesions. Spleen: Unremarkable. Adrenals: Prominent left adrenal nodule measuring 17 mm. Kidneys and ureters: The left kidney is atrophic. Bladder: Unremarkable. Reproductive organs: Unremarkable. Bowel: Unremarkable. Lymph nodes Retroperitoneal: Bulky retroperitoneal masses are seen measuring up to 6 x 5 cm on the left and 2.3 x 3.0 cm on the right. Evaluation is limited by lack of IV contrast. Multiple left pararenal nodules a re seen measuring up to 9 mm in diameter. Numerous smaller retroperitoneal nodes are seen. Mesenteric: There are enlarged lymph nodes measuring up to 14 mm in diameter. Pelvic: Numerous enlarged inguinal lymph nodes are seen, right greater than left, measuring up to 2 c m. Peritoneum: A small amount of fat stranding is seen. No ascites is seen. Vessels: Atherosclerotic calcifications are seen. Evaluation is limited by noncontrast technique. Abdominal wall: Body wall edema is seen. Bones: Patient is status post left total hip arthroplasty. There is a lytic lesion with associated so ft tissue mass in the iliac bone measuring approximately 4.0 x 3.6 cm. Degenerative changes are seen. There is a lytic lesion in the inferior aspect of the T12 vertebral body with mild associated compre ssion deformity. IMPRESSION: 1. Age-indeterminate compression deformity of the T12 vertebral body. There is an underlying lytic l esion as well as a lytic lesion in the left iliac bone concerning for malignancy. 2. Extensive lymphadenopathy in the retroperitoneal, mesenteric, and pelvic regions. Soft tissue mas ses are seen in the left perinephric space. Findings are compatible with metastatic malignancy. 3. Left adrenal nodule is nonspecific but metastatic disease cannot be excluded. ACT 112: Negative or not required by law. Electronically signed by: Roge Duke M.D. 09/21/2021 2:21 PM
[2021-09-21] MEDS ORDERED: ACETAMINOPHEN 500 MG TAB PO STA (14:36)
--- NOTE | 2021-09-21 14:56 | History & Physical Report ---
Date of Service September 21, 2021 Assessment & Plan (1) Weakness: Plan: Weakness, global decline suspect 2/2 metastatic cancer? Breast primary - Extensive goals of care conversation was had with patient and her daughter at bedside. Patient reports she actually had been aware that she probably had cancer for the last 5 to 6 years, and had made decision that she did not want to pursue any treatment for it and wants to preserve the quality of life and that she was likely to pass something other than her cancer progression. Is interested in hospice services, has some concerns over whether she would be able to remain at home or not given her level of strength. Is interested in potential palliative treatment including palliative radiation to help improve her pain, is not interested in chemotherapy/treatments that will worsen her quality of life at this time. 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 Case management consulted to identify hospice options. Discussed with radiation oncology who were consulted, given high narcotic ceiling with minimal pain relief after 150 mcg of fentanyl may benefit a biopsy to confirm diagnosis and subsequent tolerated radiation. Aspirin held. Leukocytosis to 11.54 Hemoglobin 10.4, MCV 103 Sodium normal, potassium normal Creatinine 1.66, see below Alk phos elevation 115? Bony mets Hypoalbuminemic to 3.1 TSH is 1.7, normal Calcium 11.6, corrected 11.9 for hypoalbuminemia CTchest: No evidence of acute fracture. Soft tissue masses in bilateral breasts with prominent right axillary lymph nodes. Small pulmonary nodules appreciated, small left and trace right pleural effusion with atelectasis? Malignant effusion. CTA/P: Compression deformity of T12 with underlying lytic lesion, buttock lesion of left iliac bone. Extensive lymphadenopathy in retroperitoneal, mesenteric, and pelvic regions. Soft tissue masses seen in left perinephric space suspicious for metastatic malignancy. Left adrenal nodule also appreciated. CThip: Large destructive lytic left iliac and superior acetabular mass with soft tissue component extending into iliac us. No acute fracture. Metastatic inguinal chain adenopathy. Radiation oncology consulted as above (2) Hypercalcemia: Plan: Hypercalcemia likely 2/2 malignancy Suspect 2/2 breast cancer with extensive metastasis Corrected calcium 11.9 Patient asymptomatic, calcium less than 12 Avoid thiazides, excess vitamin D, calcium supplementation. Continue NSS, recheck in morning If progressive/symptomatic may consider bisphosphonate therapy - + bowel regimen (3) Diabetes mellitus type 2 in nonobese: Plan: Type 2 diabetes mellitus On insulin 70/30 10 units twice daily prior to admission Multiple episodes of hypoglycemia including day prior to admission, and day of admission Diet change? Converted to basal bolus SSI while inpatient Glucose checks AC/at bedtime SSI Given change in needs, latency, and multiple episodes of symptomatic hypoglycemia will place pharmacy glycemic consult for additional management (4) Essential hypertension: Plan: Hypertension Hold aspirin 81 mg daily pending potential eval for biopsy Continue clonidine 0.1 mg daily Continue home diltiazem 90 mg p.o. 3 times daily Continue lisinopril 10 mg p.o. daily (5) Chronic kidney disease, stage 3: Plan: CKD Baseline creatinine 1.6-1.8 admitting creatinine 1.66, creatinine clearance drug dosing 23.3, estimated GFR 31 (6) Metastatic cancer: Plan: - As above Plan: COPD - Continue Fluticasone/albuterol 1 puff twice daily DVT prophylaxis: Lovenox, hold temporarily while assessing potential biopsy Diet: DM CODE STATUS: DNR/DNI Disposition: Medical/surgical History of Present Illness Primary Care Provider: Dana Ann MD Jacinta is a 89-year-old female with a past medical history of type 2 diabetes, CKD 3, and essential hypertension who present to the emergency department with weakness, hypoglycemia, and general decline by ambulance after an episode of low blood sugar yesterday and repeat episode today. On ER evaluation and CT was no gregory to have suspected metastatic cancer. 'Pain, I can hardly walk.' Has had pain in both legs and bag. Pain has been through both legs, prox>distal but lately all over. Her upper R thigh, and upper L thigh seems to be the worst. DOes have some midline low back pain and less severe pain in th elower legs. No pain the chest or ribs. Pain started the month before Emmanuel and has progressively worsened Strength has been poor. No falls at home. Two episodes of low blood sugar, one yesterday and one today. Went down to 31. Appetite has been greatly decreased. 'I just don't eat like hungry.' No appetite. No nausea or vomiting. No diarrhea. +constipation for a few weeks at least 2. Small BM over the past weekend, 3 days ago. Before that has been many days. Takes dulcolax at home. Some confusion after pain medications at home at night, no baseline confusion/hallucinations. - Just started hydrocodone/APAP by Dana Ann up to 3x per day as needed. No fevers, chills, or sweats No chest pain, chest pressure, or difficulty breathing Breast biopsy in 2006 and R breast biopsy 2014. Saw on a scan 5-6 years ago with PCP Dana Ann that there was concern for cancer. Did not want to do anything about it now. Extensive goals of care conversation was had with patient and her daughter at bedside. Patient reports she actually had been aware that she probably had cancer for the last 5 to 6 years, and had made decision that she did not want to pursue any treatment for it and wants to preserve the quality of life and that she was likely to pass something other than her cancer progression. Is i nterested in hospice services, has some concerns over whether she would be able to remain at home or not given her level of strength. Is interested in potential palliative treatment including palliative radiation to help improve her pain, is not interested in. If chemotherapy/treatments that will worsen her quality of life at this time. Medical History: Reviewed FHX: Family history of mother with radical masectomy 'before they knew what breast cancer was in the 60s'. Daughter/sons without BC. Medications: Reviewed Surgical History: Reviewed Allergies: Reviewed Social History: history of 50 pack years tobacco use, quit 'many years ago.' No alcohol use. Code Status: Allergies Allergy/AdvReac Type Severity Reaction Status Date / Time No Known Allergies Allergy Verified 09/21/21 15:01 Home Medications Medication Instructions Recorded Confirmed Type aspirin 81 mg tablet,delayed 81 mg PO DAILY tab 03/18/19 09/21/21 History release brimonidine 0.2 % eye drops 1 drops OP BID ml 03/18/19 09/21/21 History diltiazem HCl 90 mg tablet 90 mg PO TID tab 03/18/19 09/21/21 History latanoprost 0.005 % eye drops 1 drops OP HS ml 03/18/19 09/21/21 History multivitamin (Daily Multi-Vitamin) 1 tab PO DAILY 03/18/19 09/21/21 History glucos sul [id number] 1 cap PO BID 04/01/19 09/21/21 History [Glucosamine Chondroitin] cholecalciferol (vitamin D3) 25 25 mcg PO DAILY 10/03/19 09/21/21 History mcg (1,000 unit) capsule fluticasone 250 mcg-salmeterol 50 1 puffs INH BID 10/03/19 09/21/21 History mcg/dose blistr powdr for inhalation (Advair Diskus) insulin aspar prot-insulin aspart 10 units SQ BID 12/26/19 09/21/21 History 100 unit/mL (70-30) subcutaneous pen (Novolog Mix 70-30FlexPen U-100) dorzolamide 2 %-timolol 0.5 % (PF) 1 drp OPHTHALMIC (EYE) BID 04/26/20 09/21/21 History eye drops clonidine HCl 0.1 mg tablet 0.1 mg PO DAILY #90 tab 04/07/21 09/21/21 Rx triamcinolone acetonide 0.1 % 1 applic TOPICAL BID 04/07/21 09/21/21 History topical cream vitamin B complex 1 tab PO DAILY #90 tab 04/07/21 09/21/21 Rx lisinopril 10 mg tablet 10 mg PO DAILY #90 tab 05/17/21 09/21/21 Rx Past Med/Surg History Medical History (Updated 09/21/21 @ 16:02 by Lui Jensen MD) Chronic kidney disease, stage 3 Chronic obstructive pulmonary disease (COPD) Diabetes mellitus type 2 in nonobese Essential hypertension Osteoarthritis Surgical History S/p reverse total shoulder arthroplasty S/P total hip arthroplasty Family History Denies family history of Kidney disease Social History Smoking Status: Current every day smoker Tobacco Type: Cigarettes Current Living Situation: Family Current Living Situation Comment: lives with son Feels Safe at Home: Yes Review of Systems Review of Systems: All systems reviewed & are unremarkable except as noted in HPI & below Physical Exam Physical Exam: General: A&Ox3. NAD. Cooperative. HEENT: Atraumatic, normocephalic. Visual acuity/hearing grossly intact Pulm: Diminished but otherwise CTAB A&P. -wheezes, -rales, -rhonchi. Symmetrical chest rise. No increase in work of breathing. No respiratory distress. Cardiac: RRR, -mrg. Radial pulses intact and symmetrical. Abdominal: Some diffuse abdominal discomfort, no focal abdominal tenderness, nondistended, soft. BS managed by present. Extremities: Sensation of soft touch in hands and feet intact bilaterally. Patient with pain on proximal hip palpation and left iliac palpation. Ankle dorsiflexion/plantarflexion is intact and PT pulses are intact. Results & Data Results & Data ([facility]) Vital Signs (Past 12 Hours) Vital Signs Temp Pulse Resp BP Pulse Ox 09/21/21 12:50 58 L 20 95 09/21/21 12:07 36.6 C 61 20 167/65 H 98 PG Care Time/CCT Total # of Minutes Spent Total Time Spent with Patient: Total time spent is greater than 50% in coordination of care (as documented) at patient's floor/unit and/or counseling patient: Coding Level of Care Code 85753 Initial Inpt Care Lvl 2 Diagnoses Weakness R53.1 Hypercalcemia E83.52 Diabetes mellitus type 2 in nonobese E11.9 Essential hypertension I10 Chronic kidney disease, stage 3 N18.3 Metastatic cancer C79.9
--- NOTE | 2021-09-21 15:30 | Electrocardiogram Report ---
Test Reason : Blood Pressure : / mmHG Vent. Rate : 061 BPM Atrial Rate : 061 BPM P-R Int : 168 ms QRS Dur : 090 ms QT Int : 398 ms P-R-T Axes : 051 -40 040 degrees QTc Int : 400 ms Normal sinus rhythm Left axis deviation Moderate voltage criteria for LVH, may be normal variant Abnormal ECG When compared with ECG of 15-MAR-2018 11:05, No significant change was found Confirmed by Amando Travis ([id number]) on 09/21/2021 3:30:12 PM Referred By: REFERRED SELF Confirmed By:Amando Travis
[2021-09-21] MEDS ORDERED: SODIUM CHLORIDE 0.9% 1000ML 1,000 ML IV ONE (15:35)
[2021-09-21] MEDS ORDERED: HYDROmorphone INJ 0.5 MG/0.5 ML SYR IV PRN (16:06)
[2021-09-21] MEDS: HYDROmorphone INJ 1 MG/ML SYRINGE IV PRN (17:52)
[2021-09-21] MEDS: D5W AND NSS 1,000 ML IV SCH (20:10)
[2021-09-21] MEDS ORDERED: PHARMACY GLYCEMIC MGMT CONSULT PRN (20:24)
[2021-09-21] MEDS ORDERED: POLYETHYLENE (MIRALAX) 17 GM PACK PO PRN (20:24)
[2021-09-21] MEDS ORDERED: bisacodyL 5 MG TABEC PO PRN (20:24)
[2021-09-21] MEDS ORDERED: GLUCAGON FOR INJ 1 MG VIAL SQ PRN (20:24)
[2021-09-21] MEDS ORDERED: GLUCOSE 10 TABS/TUBE PO PRN (20:24)
[2021-09-21] MEDS ORDERED: DEXTROSE 50% 50 ML SYRINGE IV PRN (20:24)
[2021-09-21] MEDS ORDERED: CARBOHYDRATES FOR HYPOGLYCEMIA PO PRN (20:24)
[2021-09-21] MEDS ORDERED: GLUCOSE 40% GEL 15 GM TUBE PO PRN (20:24)
[2021-09-21] MEDS: dilTIAZem HCl 60 MG TAB PO SCH (22:20)
[2021-09-21] MEDS: POLYETHYLENE (MIRALAX) 17 GM PACK PO SCH (22:24)
[2021-09-21] MEDS: ENOXAPARIN INJ 30 MG/0.3 ML SYR SQ SCH (22:25)
[2021-09-21] MEDS: TRIAMCINOLONE ACET 0.1% CR 15 GM TUBE TOP SCH (22:26)
[2021-09-21] MEDS: DORZOLAMIDE/TIMOLOL 22.3/6.8MG/ML 10 ML BTL OP SCH (22:27)
[2021-09-21] MEDS: LATANOPROST 0.005% OP SOLN 2.5 ML BTL OP SCH (22:27)
[2021-09-22] MEDS: INSULIN ASPART PER UNIT SC SCH ×5 (00:49→22:26)
[2021-09-22] MEDS: HYDROmorphone INJ 1 MG/ML SYRINGE IV PRN ×4 (01:20→11:49)
[2021-09-22] MEDS: D5W AND NSS 1,000 ML IV SCH (04:23)
[2021-09-22] MEDS: MULTIVITAMIN TAB PO SCH (08:33)
[2021-09-22] MEDS: cloNIDine HCL 0.1 MG TAB PO SCH (08:33)
[2021-09-22] MEDS: FLUTICASONE/VILANTEROL 200/25MCG 14 PUFFS/INHALER INH SCH (08:33)
[2021-09-22] MEDS: VITAMIN B COMPLEX TAB PO SCH (08:34)
[2021-09-22] MEDS: dilTIAZem HCl 60 MG TAB PO SCH ×3 (08:34→19:59)
[2021-09-22] MEDS: lisinopril 10 MG TAB PO SCH (08:34)
[2021-09-22] MEDS: DORZOLAMIDE/TIMOLOL 22.3/6.8MG/ML 10 ML BTL OP SCH ×2 (08:35→20:00)
[2021-09-22] MEDS: TRIAMCINOLONE ACET 0.1% CR 15 GM TUBE TOP SCH ×2 (08:35→20:01)
[2021-09-22] MEDS: POLYETHYLENE (MIRALAX) 17 GM PACK PO SCH (08:35)
[2021-09-22 08:48] LABS: Estimated Average Glucose 100 mg/dl; Hemoglobin A1C 5.1 % (4.5-5.6)
[2021-09-22 08:53] LABS: BUN Creatinine Ratio 18.2 (10-20); Calcium 10.6 mg/dl (8.5-10.1); Creatinine Clr Calc Pharmacy 27.9 ml/min; Est GFR (African American) 39.8 ml/min; Est GFR (Non-African American) 34.4 ml/min; Potassium 4.2 mmol/L (3.5-5.1)
--- NOTE | 2021-09-22 09:48 | Radiation OncologyConsultation ---
Date of Consultation September 22, 2021 Assessment & Plan (1) Metastatic cancer: Area of secondary neoplastic involvement: unspecified site Qualified Code(s): C79.9 - Secondary malignant neoplasm of unspecified site Assessment: Ms. Sandhu is an 89-year-old female with no previous history of cancer who presents with probable widespread metastatic disease. The patient was noted to have mammograms completed between 2017 and 2019 and there was a suggestion regarding biopsy however the patient did not want to pursue a biopsy at that point. More recently, the patient was having pain involving her left hip and was also declining in general and was brought to the emergency room and was admitted for further work-up and evaluation. Imaging studies do reveal a large destructive left iliac lesion which may be contributing to her pain currently. Prior to her hospital admission, it is noted that the patient has been considering entering hospice care. I am now seeing the patient in consu ltation to discuss the role of radiation therapy. I did speak to the patient's daughter, Genet, twice on phone which was at the request of the patient. Treatment Options: 1. Hospice. 2. Palliative radiation therapy to left pelvis without tissue diagnosis with assumption patient has widespread metastatic disease. Bone scan should be considered in this situation as well. Plan: 1. No plan for radiation therapy at this time until patient and daughter have decided plan. 2. Patient does not need to stay in hospital due to considerations for radiation therapy and can be managed in the outpatient setting. 3. Pain control as per primary hospital team. Explanation of Radiation Therapy: I did explain the indications, alternatives, benefits, risks and side effects of external beam radiation therapy. I did explain the most common side effects including, but not limited to, skin erythema, skin breakdown, hyperpigmentation, telangiectasia, wound complications, perianal fistula development, fistula formation, bowel obstruction, bowel perforation, vaginal dryness, vaginal stenosis, dyspareunia, dysuria, increased urinary frequency, urgency, diarrhea, constipation, melena, hematochezia, hematuria, radiation cystitis, radiation proctitis, fatigue, decreased blood counts, wound complications from surgery, rectal incontinence, secondary malignancy development. I did explain the procedures and daily process of radiation therapy. The patient understands and would be willing to consent to treatment. The patient and daughter had multiple questions which were answered to their full satisfaction. Thank you for allowing us to participate in the care of this patient. This chart was completed in part utilizing [employer] Speech Voice Recognition software. Attempts were made to minimize the grammatical errors, random word insertions, pronoun errors and incomplete sentences. Any formal questions or concerns about the content, text or information contained within the body of this dictation should be directly addressed to the provider for clarification. Bere Lennon MD Department of Radiation Oncology [facility] History of Present Illness Attending Physician: Lui Jensen MD History of Present Illness 2017 to 2019. Mammogram studies were completed which did reveal a potential mass involving the left breast. The patient elected not to pursue a biopsy. 09/02/2021. Hip and pelvis x-ray. Indications for right hip pain. IMPRESSION: 1. No acute bony abnormality is identified. 2. A left hip arthroplasty is in near anatomic alignment. 3. Advanced lumbosacral spondylosis is partially visualized. 09/15/2021. CT of lumbar spine. IMPRESSION: 1. Stable appearance of chronic appearing compression deformity in T12. Multilevel degenerative changes as above. 2. Radiolucency at the base of T12 is nonspecific, may represent a large Schmorl's node but metastasis cannot be entirely excluded. Correlation with outs rachel imaging is recommended, if available. 09/21/2021. CT of chest. IMPRESSION: 1. No evidence of acute fractures. 2. Small left and trace right pleural effusion with associated atelectasis. Tiny pulmonary nodules as above. 3. Soft tissue masses in the bilateral breasts with prominent right axillary lymph nodes. Correlation with mammography is recommended exclude malignancy. 09/21/2021. CT of abdomen/pelvis. IMPRESSION: 1. Age-indeterminate compression deformity of the T12 vertebral body. There is an underlying lytic lesion as well as a lytic lesion in the left iliac bone concerning for malignancy. 2. Extensive lymphadenopathy in the retroperitoneal, mesenteric, and pelvic regions. Soft tissue masses are seen in the left perinephric space. Findings are compatible with metastatic malignancy. 3. Left adrenal nodule is nonspecific but metastatic disease cannot be excluded. 09/21/2021. CT of hip. IMPRESSION: 1. Large destructive lytic left iliac/superior acetabular mass with soft tissue component extending into the iliacus muscle. No acute fracture. Findings are compatible with metastatic disease. 2. Metastatic inguinal chain adenopathy. 3. Please refer to the CT chest, abdomen and pelvis of same day for discussion of the additional metastatic lesions. 09/21/2021. Patient presents to emergency room and is admitted to hospital due to hypercalcemia and pain control issues. Radiation oncology consultation placed. Allergies Allergy/AdvReac Type Severity Reaction Status Date / Time No Known Allergies Allergy Verified 09/21/21 15:01 Home Medications Medication Instructions Recorded Confirmed Type aspirin 81 mg tablet,delayed 81 mg PO DAILY tab 03/18/19 09/21/21 History release brimonidine 0.2 % eye drops 1 drops OP BID ml 03/18/19 09/21/21 History diltiazem HCl 90 mg tablet 90 mg PO TID tab 03/18/19 09/21/21 History latanoprost 0.005 % eye drops 1 drops OP HS ml 03/18/19 09/21/21 History multivitamin (Daily Multi-Vitamin) 1 tab PO DAILY 03/18/19 09/21/21 History glucos sul [id number]-Mn 1 cap PO BID 04/01/19 09/21/21 History [Glucosamine Chondroitin] cholecalciferol (vitamin D3) 25 25 mcg PO DAILY 10/03/19 09/21/21 History mcg (1,000 unit) capsule fluticasone 250 mcg-salmeterol 50 1 puffs INH BID 10/03/19 09/21/21 History mcg/dose blistr powdr for inhalation (Advair Diskus) insulin aspar prot-insulin aspart 10 units SQ BID 12/26/19 09/21/21 History 100 unit/mL (70-30) subcutaneous pen (Novolog Mix 70-30FlexPen U-100) dorzolamide 2 %-timolol 0.5 % (PF) 1 drp OPHTHALMIC (EYE) BID 04/26/20 09/21/21 History eye drops clonidine HCl 0.1 mg tablet 0.1 mg PO DAILY #90 tab 04/07/21 09/21/21 Rx triamcinolone acetonide 0.1 % 1 applic TOPICAL BID 04/07/21 09/21/21 History topical cream vitamin B complex 1 tab PO DAILY #90 tab 04/07/21 09/21/21 Rx lisinopril 10 mg tablet 10 mg PO DAILY #90 tab 05/17/21 09/21/21 Rx Patient History Medical History (Updated 09/21/21 @ 17:25 by Josué Mccauley M.D.) Chronic kidney disease, stage 3 Chronic obstructive pulmonary disease (COPD) Diabetes mellitus type 2 in nonobese Essential hypertension Osteoarthritis Surgical History S/p reverse total shoulder arthroplasty S/P total hip arthroplasty Family History Denies family history of Kidney disease Social History Smoking Status: Former smoker Tobacco Type: Cigarettes Smoking End Date: 10 YEARS AGO; Hx Alcohol Use: No Hx Substance Use: No Preferred Language: Puerto Rican Communication Ability: Effective Clinical Technologist Required: No Beliefs That Will Affect Care: None Current Living Situation: Family Current Living Situation Comment: LIVES WITH ELDERLY SON Feels Safe at Home: Yes Safety Concerns: Feels Safe At This Time Assistive Devices: Denture - Upper, Denture - Lower, Glasses and Oxygen - Continuous Review of Systems Review of Systems: Patient complains of pain involving her left hip and some discomfort involving her neck. Physical Exam Constitutional: WD/WN, vitals as above Chest (Breasts): Additional Comments: Palpable masses noted in left breast. Psychiatric: A+Ox3, euthymic affect Time Spent Attending I spent 15 minutes in preparation for this consultation including reviewing all the clinical records, reviewing laboratory studies, pathology reports and imaging results. I spent 20 minutes with direct face to face interaction with the patient and/or family including performing a physical exam and answering all questions. I spent 15 minutes documenting this patient's visit. I spent 15 minutes speaking with the patient's daughter.
[2021-09-22] MEDS ORDERED: oxyCODONE HCL IR 5 MG TAB (IMMEDIATE RELEASE) PO PRN (13:51)
--- NOTE | 2021-09-22 14:43 | Pharmacy Report ---
Pharmacy Glycemic Short Note 2 - Date of Service September 22, 2021 - Glycemic Short BSG Results (Last 24 hours): 09/21/21 09/21/21 09/21/21 17:42 19:27 20:32 Glucose POC Glucose 71 60 L* 77 09/21/21 09/22/21 09/22/21 22:34 00:36 05:51 Glucose POC Glucose 110 H 116 H 121 H 09/22/21 09/22/21 09/22/21 08:03 08:09 12:03 Glucose 132 H POC Glucose 134 H 137 H OUTPATIENT ANTIDIABETIC REGIMEN: * Novolog 70/30 - 10 units BIDM * HbA1C = 5.1 % (09/22/21) ASSESSMENT: * Ms Sandhu is an 89 y/o F with a PMH of T2DM on insulin who presents with weakness. * Patient has had significant hypoglycemia at home * Hold basal insulin for now as patient was on dextrose infusion on admission (due to hypoglycemia). * Novolog weight-based stress of 2 for now. PLAN FOR INPATIENT GLYCEMIC CONTROL: * Basal insulin * Lantus- hold * Bolus insulin * NovoLog per scale ACHS or Q6hrs while NPO * Goal Range: Low 120 mg/dL - High 160 mg/dL * Correction Factor: 30 mg/dL/unit * Nutritional / Prandial insulin per carb ratio of 1 unit per 10 grams CHO consumed PLAN FOR DISCHARGE: * HbA1C is lower than goal range indicating that patient has intensive outpatient glycemic control which is too aggressive. * Will monitor patient requirements to make a recommendation for discharge.
[2021-09-22 14:57] LABS: Appearance Urine Turbid (Clear); Bacteria Urine Automated 4+ (Negative); Bilirubin Urine Negative (Negative); Blood Urine Trace (Negative); Color Urine Dark Yellow; Glucose Urine UA Negative (Negative); Ketones Urine Negative (Negative); Leukocyte Esterase Urine 2+ (Negative); Nitrite Urine Positive (Negative); Protein Urine 2+ (Negative); Specific Gravity Urine 1.017 (1.000-1.030); Urobilinogen Urine Negative (Negative); WBC Urine Automated >30 /hpf (0-5)
[2021-09-22 15:25] LABS: Calcium Oxalate Crystals Urine Present (None Prsent)
[2021-09-22] MEDS: oxyCODONE HCL IR 5 MG TAB (IMMEDIATE RELEASE) PO PRN ×2 (16:59→22:34)
--- NOTE | 2021-09-22 18:26 | Hospitalist Progress Note ---
Date of Service September 22, 2021 Assessment & Plan (1) Weakness: Plan: Weakness, global decline suspect 2/2 metastatic cancer? Breast primary -09/22: Extensive goals of care conversation was had with patient and her daughter at bedside. Patient reports she actually had been aware that she probably had cancer for the last 5 to 6 years, and had made decision that she did not want to pursue any treatment for it and wants to preserve the quality of life and that she was likely to pass something other than her cancer progression. Is interested in hospice services, has some concerns over whether she would be able to remain at home or not given her level of strength. Is interested in potential palliative treatment including palliative radiation to help improve her pain, is not interested in chemotherapy/treatments that will worsen her quality of life at this time. 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 Case management consulted to identify hospice op tions. Discussed with radiation oncology who were consulted, given high narcotic ceiling with minimal pain relief after 150 mcg of fentanyl may benefit a biopsy to confirm diagnosis and subsequent tolerated radiation. Aspirin held. 09/23: Patient does not wish to pursue confirmation biopsy at this time, no plan for radiation therapy at this time. Daughter is looking into hospice options instead, will defer bone scan at this time. Anticipate hospice at home versus placement, case management on board and assisting. TSH is 1.7, normal Calcium as below CTchest: No evidence of acute fracture. Soft tissue masses in bilateral breasts with prominent right axillary lymph nodes. Small pulmonary nodules appreciated, small left and trace right pleural effusion with atelectasis? Malignant effusion. CTA/P: Compression deformity of T12 with underlying lytic lesion, buttock lesion of left iliac bone. Extensive lymphadenopathy in retroperitoneal, mesenteric, and pelvic regions. Soft tissue masses seen in left perinephric space suspicious for metastatic malignancy. Left adrenal nodule also appreciated. CThip: Large destructive lytic left iliac and superior acetabular mass with soft tissue component extending into iliac us. No acute fracture. Metastatic inguinal chain adenopathy. Radiation oncology consulted as above (2) Hypercalcemia: Plan: Hypercalcemia likely 2/2 malignancy Suspect 2/2 breast cancer with extensive metastasis Corrected calcium 11.9 on admission Patient asymptomatic, calcium less than 12 Avoid thiazides, excess vitamin D, calcium supplementation. Improved to 10.6 with hydration If progressive/symptomatic may consider bisphosphonate therapy - + bowel regimen (3) Diabetes mellitus type 2 in nonobese: Plan: Type 2 diabetes mellitus On insulin 70/30 10 units twice daily prior to admission Multiple episodes of hypoglycemia including day prior to admission, and day of admission Converted to basal bolus SSI while inpatient Glucose checks AC/at bedtime SSI (4) Essential hypertension: Plan: Hypertension Hold aspirin 81 mg daily pending potential eval for biopsy Continue clonidine 0.1 mg daily Continue home diltiazem 90 mg p.o. 3 times daily Continue lisinopril 10 mg p.o. daily (5) Chronic kidney disease, stage 3: Plan: CKD Baseline creatinine 1.6-1.8 admitting creatinine 1.66, creatinine clearance drug dosing 23.3, estimated GFR 31 Creatinine 1.37 with hydration today (6) Metastatic cancer: Plan: - As above (7) Urinary tract infection: Plan: UA infected appearing Ascending urinary symptoms of presentation Trace leukocytosis, UC pending Empiric Rocephin Plan: COPD - Continue Fluticasone/albuterol 1 puff twice daily DVT prophylaxis: Lovenox, hold temporarily while assessing potential biopsy Diet: DM CODE STATUS: DNR/DNI Disposition: Medical/surgical Admission and Anticipated Discharge Date Admission Date: September 21, 2021 Subjective Seen at bedside this morning. Patient has met with radiation oncology, does not wish to pursue a biopsy at this time. Discussed with patient and her daughter by phone, would like to look into hospice agencies and are being about home versus skilled placement with hospice. If going home would need hospital bed, case management has met with family. Are looking into agency options at this time. Patient with some frequency voiding, no abdominal pain, no dysuria. Per daughter has had increased frequency? Incontinence Continues to have some pain in her hip improved with pain control, is aware she is in the hospital but is disoriented to date this morning. Orientation improved in afternoon. Denies chest pain, chest pressure, shortness of breath, difficulty breathing. Does have some neck pain and bilateral shoulder pain which she thinks is due to the hospital bed. Review of Systems Review of Systems: All systems reviewed & are unremarkable except as noted in Subjective Physical Exam Physical Exam: General: A&Ox3. NAD. Cooperative. HEENT: Atraumatic, normocephalic. Visual acuity/hearing grossly intact Pulm: Diminished but otherwise CTAB A&P. -wheezes, -rales, -rhonchi. Symmetrical chest rise. No increase in work of breathing. No respiratory distress. Cardiac: RRR, -mrg. Radial pulses intact and symmetrical. Abdominal: Soft, NT, ND Extremities: Intact, sensation to soft touch in hands and feet intact to soft touch. Radial and PT pulses intact bilaterally. Results & Data Results & Data ([facility]) Vital Signs (Past 12 Hours) Vital Signs Temp Pulse Resp BP Pulse Ox 09/22/21 15:13 36.8 C 75 16 155/78 H 95 09/22/21 14:00 62 09/22/21 07:34 36.8 C 81 18 165/81 H 92 PG Care Time/CCT Total # of Minutes Spent Total Time Spent with Patient: Total time spent is greater than 50% in coordination of care (as documented) at patient's floor/unit and/or counseling patient: Coding Level of Care Code 38115 Subseq Hosp Care Lvl 2 Diagnoses Weakness R53.1 Hypercalcemia E83.52 Diabetes mellitus type 2 in nonobese E11.9 Essential hypertension I10 Chronic kidney disease, stage 3 N18.3 Metastatic cancer C79.9 Area of secondary neoplastic involvement: unspecified site Urinary tract infection N39.0 (1) Metastatic cancer Area of secondary neoplastic involvement: unspecified site Qualified Code(s): C79.9 - Secondary malignant neoplasm of unspecified site
[2021-09-22] MEDS: cefTRIAXone SODIUM 1,000 MG in DEXTROSE 5% 50 ML IV SCH (19:59)
[2021-09-22] MEDS: LATANOPROST 0.005% OP SOLN 2.5 ML BTL OP SCH (20:00)
[2021-09-22] MEDS: ENOXAPARIN INJ 30 MG/0.3 ML SYR SQ SCH (20:01)
[2021-09-23] MEDS: oxyCODONE HCL IR 5 MG TAB (IMMEDIATE RELEASE) PO PRN ×5 (03:40→23:44)
[2021-09-23] MEDS: VITAMIN B COMPLEX TAB PO SCH (08:04)
[2021-09-23] MEDS: MULTIVITAMIN TAB PO SCH (08:04)
[2021-09-23] MEDS: lisinopril 10 MG TAB PO SCH (08:05)
[2021-09-23] MEDS: dilTIAZem HCl 60 MG TAB PO SCH ×3 (08:05→20:12)
[2021-09-23] MEDS: cloNIDine HCL 0.1 MG TAB PO SCH (08:06)
[2021-09-23] MEDS: FLUTICASONE/VILANTEROL 200/25MCG 14 PUFFS/INHALER INH SCH (08:06)
[2021-09-23] MEDS: POLYETHYLENE (MIRALAX) 17 GM PACK PO SCH (08:06)
[2021-09-23] MEDS: DORZOLAMIDE/TIMOLOL 22.3/6.8MG/ML 10 ML BTL OP SCH ×2 (08:07→20:07)
[2021-09-23] MEDS: TRIAMCINOLONE ACET 0.1% CR 15 GM TUBE TOP SCH ×2 (08:07→20:08)
[2021-09-23] MEDS: INSULIN ASPART PER UNIT SC SCH ×4 (09:02→21:48)
--- NOTE | 2021-09-23 12:44 | Pharmacy Report ---
Pharmacy Glycemic Short Note 2 - Date of Service September 23, 2021 - Glycemic Short BSG Results (Last 24 hours): 09/22/21 09/22/21 09/23/21 17:12 20:54 08:16 POC Glucose 114 H 133 H 98 09/23/21 12:20 POC Glucose 100 H OUTPATIENT ANTIDIABETIC REGIMEN: * Novolog 70/30 - 10 units BIDM * HbA1C = 5.1 % (09/22/21) ASSESSMENT: * Patient's BSGs yesterday were [phone] mg/dL. Fasting today is 98 mg/dL. * Continue to hold Lantus. * Continue Novolog. Baseline * Ms Sandhu is an 89 y/o F with a PMH of T2DM on insulin who presents with weakness. * Patient has had significant hypoglycemia at home * Hold basal insulin for now as patient was on dextrose infusion on admission (due to hypoglycemia). * Novolog weight-based stress of 2 for now. PLAN FOR INPATIENT GLYCEMIC CONTROL: * Basal insulin * Lantus- hold * Bolus insulin * NovoLog per scale ACHS or Q6hrs while NPO * Goal Range: Low 120 mg/dL - High 160 mg/dL * Correction Factor: 30 mg/dL/unit * Nutritional / Prandial insulin per carb ratio of 1 unit per 10 grams CHO consumed PLAN FOR DISCHARGE: * HbA1C is lower than goal range indicating that patient has intensive outpatient glycemic control which is too aggressive. * Will monitor patient requirements to make a recommendation for discharge.
--- NOTE | 2021-09-23 17:23 | Hospitalist Progress Note ---
Date of Service September 23, 2021 Assessment & Plan (1) Weakness: Plan: Goals of care: Pursuing hospice. [facility] home hospice referral placed. Equipment being delivered Sunday, anticipate discharge to home on Sunday. Minimize labs for comfort. Weakness, global decline suspect 2/2 metastatic cancer? Breast primary -09/22: Extensive goals of care conversation was had with patient and her daughter at bedside. Patient reports she actually had been aware that she p robably had cancer for the last 5 to 6 years, and had made decision that she did not want to pursue any treatment for it and wants to preserve the quality of life and that she was likely to pass something other than her cancer progression. Is interested in hospice services, has some concerns over whether she would be able to remain at home or not given her level of strength. Is interested in potential palliative treatment including palliative radiation to help improve her pain, is not interested in chemotherapy/treatments that will worsen her quality of life at this time. 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 Case management consulted to identify hospice options. Discussed with radiation oncology who were consulted, given high narcotic ceiling with minimal pain relief after 150 mcg of fentanyl may benefit a biopsy to confirm diagnosis and subsequent tolerated radiation. Aspirin held. 09/23: Patient does not wish to pursue confirmation biopsy at this time, no plan for radiation therapy at this time. TSH is 1.7, normal Calcium as below CTchest: No evidence of acute fracture. Soft tissue masses in bilateral breasts with prominent right axillary lymph nodes. Small pulmonary nodules appreciated, small left and trace right pleural effusion with atelectasis? Malignant effusion. CTA/P: Compression deformity of T12 with underlying lytic lesion, buttock lesion of left iliac bone. Extensive lymphadenopathy in retroperitoneal, mesenteric, and pelvic regions. Soft tissue masses seen in left perinephric space suspicious for metastatic malignancy. Left adrenal nodule also appreciated. CThip: Large destructive lytic left iliac and superior acetabular mass with soft tissue component extending into iliac us. No acute fracture. Metastatic inguinal chain adenopathy. Radiation oncology consulted as above (2) Hypercalcemia: Plan: Hypercalcemia likely 2/2 malignancy Suspect 2/2 breast cancer with extensive metastasis Corrected calcium 11.9 on admission Patient asymptomatic, calcium less than 12 Avoid thiazides, excess vitamin D, calcium supplementation. Improved to 10.6 with hydration, calcium QoD. If progressive/symptomatic may consider bisphosphonate therapy as constipation/aches likely to be uncomfortable for pt if progressive - + bowel regimen (3) Diabetes mellitus type 2 in nonobese: Plan: Type 2 diabetes mellitus On insulin 70/30 10 units twice daily prior to admission Multiple episodes of hypoglycemia including day prior to admission, and day of admission Converted to basal bolus SSI while inpatient Glucose checks AC/at bedtime SSI (4) Essential hypertension: Plan: Hypertension Hold aspirin 81 mg daily pending potential eval for biopsy Continue clonidine 0.1 mg daily Continue home diltiazem 90 mg p.o. 3 times daily Continue lisinopril 10 mg p.o. daily (5) Chronic kidney disease, stage 3: Plan: CKD Baseline creatinine 1.6-1.8 admitting creatinine 1.66, creatinine clearance drug dosing 23.3, estimated GFR 31 Labs QoD (6) Metastatic cancer: Plan: - As above (7) Urinary tract infection: Plan: UA infected appearing Ascending urinary symptoms of presentation Trace leukocytosis, UC +E coli jones sensitive - Narrowed to empiric cefazolin Plan: COPD - Continue Fluticasone/albuterol 1 puff twice daily DVT prophylaxis: Lovenox, hold temporarily while assessing potential biopsy Diet: DM CODE STATUS: DNR/DNI Disposition: Medical/surgical Admission and Anticipated Discharge Date Admission Date: September 21, 2021 Subjective Seen at bedside this morning. Patient reports no change in symptoms, continues to feel weak with some pain in her hip on ambulation/palpation. She is anxious to get out of the hospital, is awaiting for hospice service to be enrolled. Referral to [facility] home hospice placed. Chronic pain delivered Sunday, anticipate discharge on Sunday. Patient denies chest pain, chest pressure, l ightheadedness, dizziness, abdominal pain, nausea, vomiting. Continues to feel weak. Review of Systems Review of Systems: All systems reviewed & are unremarkable except as noted in Subjective Physical Exam Physical Exam: General: Oriented to name, place. NAD. Cooperative. HEENT: Atraumatic, normocephalic. Visual acuity/hearing grossly intact Pulm:Symmetrical chest rise. No increase in work of breathing. No respiratory distress. Cardiac: RRR, -mrg. Radial pulses intact and symmetrical. Abdominal: Soft, NT, ND Extremities: Grossly intact, moving upper extremities equally. Sitting in chair at time of assessment. Results & Data Results & Data ([facility]) Vital Signs (Past 12 Hours) Vital Signs Temp Pulse Resp BP Pulse Ox Pulse Ox Pulse Ox 09/23/21 14:42 36.6 C 83 16 135/71 91 09/23/21 10:51 86 L 80 L 09/23/21 07:50 36.4 C L 96 H 16 156/78 H 91 PG Care Time/CCT Total # of Minutes Spent Total Time Spent with Patient: Total time spent is greater than 50% in coordination of care (as documented) at patient's floor/unit and/or counseling patient: Coding Level of Care Code 58388 Subseq Hosp Care Lvl 2 Diagnoses Weakness R53.1 Hypercalcemia E83.52 Diabetes mellitus type 2 in nonobese E11.9 Essential hypertension I10 Chronic kidney disease, stage 3 N18.3 Metastatic cancer C79.9 Area of secondary neoplastic involvement: unspecified site Urinary tract infection N39.0 (1) Metastatic cancer Area of secondary neoplastic involvement: unspecified site Qualified Code(s): C79.9 - Secondary malignant neoplasm of unspecified site
[2021-09-23] MEDS: cefTRIAXone SODIUM 1,000 MG in DEXTROSE 5% 50 ML IV SCH (18:22)
[2021-09-23] MEDS: LATANOPROST 0.005% OP SOLN 2.5 ML BTL OP SCH (20:07)
[2021-09-23] MEDS: ENOXAPARIN INJ 30 MG/0.3 ML SYR SQ SCH (21:43)
[2021-09-23] MEDS ORDERED: ACETAMINOPHEN 500 MG TAB PO STA (21:52)
--- NOTE | 2021-09-23 22:33 | XRay Report ---
XR knee LT 1 or 2V routine HISTORY: 89 years-old Female severe L knee pain after possible injury acute left knee pain COMPARISON: CT left hip 09/21/2020 TECHNIQUE: 2 views of the left knee FINDINGS: There is an acute complete transverse fracture involving the distal femoral diaphysis which demonstra jorden 1.5 cm lateral displacement with 44 degrees medial and 65 degrees dorsal displacement. There is s uggestion of an underlying 3.8 cm lytic mass. Moderate soft tissue swelling. Arterial calcifications. Partially imaged femoral stem associated with the hip arthroplasty. IMPRESSION: Acute pathologic angulated and displaced fracture of the distal left femoral diaphysis wi th underlying lytic metastatic bone lesion. ACT 112: Negative or not required by law. The above report was generated using voice recognition software. It may contain grammatical, syntax o r spelling errors. Electronically signed by: Douglas Ferrari M.D. 09/23/2021 10:32 PM
--- NOTE | 2021-09-24 00:11 | Communication Note ---
Date of Service: September 24, 2021 89 y/o w/ PMHx DM2, CKD, metastatic breast cancer to bone, L total hip arthroplasty. At 10:32PM, was messaged about patient complaining of 10/10 L knee pain upon transfer from [facility] to sitting down on bed. Assessed patient and on exam, has significant pain w/ range of motion and palpation bilaterally. Sensation intact. Distal thigh area w/ bending/deformity. No significant swelling of knee. Stat 4 view XR knee ordered; shows complete transverse fracture of distal femur, displaced. Likely pathologic fracture given hx of bone mets. Patient was pursuing hospice options per dayteam's note. I discussed situation w/ patient and daughter. Patient and daughter would like surgical evaluation for her current fracture.
[2021-09-24] MEDS: oxyCODONE HCL IR 5 MG TAB (IMMEDIATE RELEASE) PO PRN ×4 (04:13→20:07)
--- NOTE | 2021-09-24 06:07 | CT Scan Report ---
CT SCAN OF THE LEFT KNEE WITHOUT IV CONTRAST CLINICAL HISTORY: Fall with left femoral fracture. COMPARISON STUDY: Radiographs of the left knee dated 09/23/2021. TECHNIQUE: CT scan of the left knee is performed from the distal femur to the proximal tibia and fib luis. Images are reviewed in the axial, sagittal, and coronal planes. IV contrast was not administered for this examination. 3-D reformats are created and assessed. A dose lowering technique was utilize d adhering to the principles of ALARA. CT DOSE: 286.87 mGy.cm FINDINGS: The skeletal structures are osteopenic. The stem of a hip arthroplasty is partially visuali zed. There is a comminuted horizontally oriented fracture of the distal femoral diaphysis with small displaced fragments. This is located approximately 3.5 cm below the stem of the arthroplasty. There i s lateral displacement of the distal shaft by approximately 1/2 shaft length, as well as dorsal displ acement of the distal shaft by greater than 1/2 shaft length. There is apex dorsal angulation, and ap proximately 1 cm of overriding of the fragments. There is likely external rotation of the distal femo ral diaphysis as compared to the proximal shaft. Fracture does not extend to the knee joint. There is hemorrhage around the fracture, predominantly within the quadriceps compartment. The hematoma measur es approximately 5.5 x 5.5 x 5 cm. The patella, the proximal tibia, and the proximal fibula appear in tact. No lytic or blastic lesion is clearly identified. There is mild tricompartmental degenerative j oint space narrowing as well as patellar enthesophytes. Atherosclerotic calcification is noted in the regional arteries. Soft tissue edema is seen throughout the left lower extremity. There is generaliz ed atrophy of the regional musculature. IMPRESSION: 1. There is a comminuted, angulated, and mildly overriding fracture of the distal femoral diaphysis a s detailed above. 2. The fracture originates approximately 3.5 cm below the arthroplasty stem. 3. Hemorrhage/hematoma is seen around the fracture as detailed above. 4. The patella, proximal tibia, and proximal fibula appear intact. ACT 112: Negative or not required by law. Electronically signed by: Paul Wheeler M.D. 09/24/2021 6:06 AM
[2021-09-24] MEDS: POLYETHYLENE (MIRALAX) 17 GM PACK PO SCH ×2 (08:09→20:07)
[2021-09-24] MEDS: FLUTICASONE/VILANTEROL 200/25MCG 14 PUFFS/INHALER INH SCH (08:10)
[2021-09-24] MEDS: dilTIAZem HCl 60 MG TAB PO SCH ×3 (08:10→20:06)
[2021-09-24] MEDS: DORZOLAMIDE/TIMOLOL 22.3/6.8MG/ML 10 ML BTL OP SCH ×2 (08:10→20:04)
[2021-09-24] MEDS: INSULIN ASPART PER UNIT SC SCH ×4 (08:11→21:22)
[2021-09-24] MEDS: lisinopril 10 MG TAB PO SCH (08:11)
[2021-09-24] MEDS: MULTIVITAMIN TAB PO SCH (08:11)
[2021-09-24] MEDS: TRIAMCINOLONE ACET 0.1% CR 15 GM TUBE TOP SCH ×2 (08:11→20:06)
[2021-09-24] MEDS: cloNIDine HCL 0.1 MG TAB PO SCH (08:11)
[2021-09-24] MEDS: VITAMIN B COMPLEX TAB PO SCH (08:11)
--- NOTE | 2021-09-24 12:44 | XRay Report ---
LEFT FEMUR 2 VIEWS CLINICAL HISTORY: Femoral fracture. FINDINGS: AP and crosstable lateral views of the left femur are compared to left knee radiographs primo ed 09/23/[address] performed the same day 09/24/2021. The skeletal structures are osteopeni c. Again seen is a comminuted, mildly displaced, and horizontally oriented fracture through the dista l femoral metaphysis with apex dorsal angulation. There is mild overriding of fragments, and the frac ture is located approximately 4 cm below the stem of a left hip arthroplasty. The left hip arthroplas ty is in near-anatomic alignment. No periprosthetic component of the fracture is identified. The visu alized left pelvis appears intact. Left acetabular lucency is consistent with a known metastatic lesi on. The knee joint is grossly maintained. Soft tissue edema is present around the fracture. There is advanced atherosclerotic calcification of the femoral artery. IMPRESSION: 1. Distal femoral diaphyseal fracture as above. 2. The proximal femur appears intact. 3. Left acetabular lucency is consistent with a known osteolytic metastatic lesion. Electronically signed by: Paul Wheeler M.D. 09/24/2021 12:42 PM
--- NOTE | 2021-09-24 12:53 | Hospitalist Progress Note ---
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 Given that her pain started while in bed and not due to trauma or other circumstances there is heavy suspicion the fracture is due to metastatic disease. Dr Parikh/[facility] has been consulted. Pt/daughter wanting to pursue surgical management to alleviate pain/for palliative purposes. Likely to have ORIF tomorrow on Sunday. For pain control - add dilaudid 0.25mg IV q6h. Can cont oxycodone prn if needed. (2) Metastatic cancer: Plan: Primary site likely the breast. Innumerable mets to bone, lymph nodes, liver, +/- lungs. Even prior to #1 the patient & family were opting for home with hospice post- discharge. (3) Urinary retention: Plan: 2nd to #4, narcotics, etc. Alvarez placed. (4) Urinary tract infection: Plan: 2nd E coli - jones sensitive stop rocephin - change to keflex complete 7 days in total IV/PO abx therapy (5) Hypercalcemia: Plan: likely malignancy related Corrected calcium 11.9 at admission Ca level had improved with IVF if level rises again then will give IV zometa (6) Diabetes mellitus type 2 in nonobese: Plan: On insulin 70/30 10 units twice daily prior to admission Multiple episodes of hypoglycemia including day prior to admission, and day of admission - per family cont novolog correction (7) Essential hypertension: Plan: Continue clonidine 0.1 mg daily Continue home diltiazem 90 mg p.o. 3 times daily Hold lisinopril given upcoming surgery (8) Chronic kidney disease, stage 3: Plan: Baseline creatinine 1.6-1.8 bmp in am (9) Chronic obstructive pulmonary disease (COPD): Plan: cont home inhalers NC O2 (10) DVT prophylaxis: Plan: lovenox 30mg daily consider changing to asa 81mg BID after her femur surgery Plan: daughter extensively updated at bedside today Admission and Anticipated Discharge Date Admission Date: September 21, 2021 Subjective patient attempting to eat during the visit she was falling asleep, having just received oral oxycodone 15-20 minutes prior she did c/o left distal thigh pain she was mildly confused - again falling asleep later in the day I had asked the staff to keep me informed about urinary retention she ultimately needed a alvarez, and 800cc of urine immediately returned after such daughter came to bedside during visiting hours, and we had a lengthy visit together discussing the plan of care Review of Systems Review of Systems: Unobtainable due to cognitive status Physical Exam Physical Exam: gen - sleepy, confused, frail appearing mouth - MM dry neck - no JVD heart - RRR, s1 s2 lungs - CTA b/l abd - distended, BS+, NT, no HSM ext - left leg is shorter vs the right leg, externally rotated; pulses 2+ b/l psych - oriented to person/place only Results & Data Results & Data ([facility]) Vital Signs (Past 12 Hours) Vital Signs Temp Pulse Resp BP Pulse Ox 09/24/21 07:36 36.5 C 80 18 158/81 H [address] 09/24/21 02:54 CT SCAN OF THE LEFT KNEE WITHOUT IV CONTRAST CLINICAL HISTORY: Fall with left femoral fracture. COMPARISON STUDY: Radiographs of the left knee dated 09/23/2021. TECHNIQUE: CT scan of the left knee is performed from the distal femur to the proximal tibia and fibula. Images are reviewed in the axial, sagittal, and coronal planes. IV contrast was not administered for this examination. 3-D reformats are created and assessed. A dose lowering technique was utilized adhering to the principles of ALARA. CT DOSE: 286.87 mGy.cm FINDINGS: The skeletal structures are osteopenic. The stem of a hip arthroplasty is partially visualized. There is a comminuted horizontally oriented fracture of the distal femoral diaphysis with small displaced fragments. This is located approximately 3.5 cm below the stem of the arthroplasty. There is lateral displacement of the distal shaft by approximately 1/2 shaft length, as well as dorsal displacement of the distal shaft by greater than 1/2 shaft length. There is apex dorsal angulation, and approximately 1 cm of overriding of the fragments. There is likely external rotation of the distal femoral diaphysis as compared to the proximal shaft. Fracture does not extend to the knee joint. There is hemorrhage around the fracture, predominantly within the quadriceps compartment. The hematoma measures approximately 5.5 x 5.5 x 5 cm. The patella, the proximal tibia, and the proximal fibula appear intact. No lytic or blastic lesion is clearly identified. There is mild tricompartmental degenerative joint space narrowing as well as patellar enthesophytes. Atherosclerotic calcification is noted in the regional arteries. Soft tissue edema is seen throughout the left lower extremity. There is generalized atrophy of the regional musculature. IMPRESSION: 1. There is a comminuted, angulated, and mildly overriding fracture of the distal femoral diaphysis as detailed above. 2. The fracture originates approximately 3.5 cm below the arthroplasty stem. 3. Hemorrhage/hematoma is seen around the fracture as detailed above. 4. The patella, proximal tibia, and proximal fibula appear intact. ACT 112: Negative or not required by law. Electronically signed by: Paul Wheeler M.D. 09/24/2021 6:06 AM Femur X-Ray 09/24/21 07:27 LEFT FEMUR 2 VIEWS CLINICAL HISTORY: Femoral fracture. FINDINGS: AP and crosstable lateral views of the left femur are compared to left knee radiographs dated 09/23/[address] performed the same day 09/24/2021. The skeletal structures are osteopenic. Again seen is a comminuted, mildly displaced, and horizontally oriented fracture through the distal femoral metaphysis with apex dorsal angulation. There is mild overriding of fragments, and the fracture is located approximately 4 cm below the stem of a left hip arthroplasty. The left hip arthroplasty is in near-anatomic alignment. No perip rosthetic component of the fracture is identified. The visualized left pelvis appears intact. Left acetabular lucency is consistent with a known metastatic lesion. The knee joint is grossly maintained. Soft tissue edema is present around the fracture. There is advanced atherosclerotic calcification of the femoral artery. IMPRESSION: 1. Distal femoral diaphyseal fracture as above. 2. The proximal femur appears intact. 3. Left acetabular lucency is consistent with a known osteolytic metastatic lesion. Electronically signed by: Paul Wheeler M.D. 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
--- NOTE | 2021-09-24 13:03 | Pharmacy Report ---
Pharmacy Glycemic Sign Off Nt - Date of Service September 24, 2021 - Assessment & Plan ASSESSMENT: * Pharmacy was consulted by Dr Jensen on 09/21/21 for glycemic control and to write orders per [facility] inpatient glycemic control protocol. * Major changes made by pharmacy to antidiabetic regimen include: * Addition of Novolog * Patient has been receiving/requiring 0-2 units of insulin per day for adequate glycemic control * BSGs ranging 90-152 mg/dl * Regimen has only required minor adjustments over the past 48hrs to achieve this level of control * Do not anticipate further changes in patient status that would quickly deteriorate glycemic control (i.e. patient to be NPO for upcoming procedure, steroids tapering, starting tube feedings, etc). * Please see recommendations for outpatient antidiabetic regimen below. PLAN FOR INPATIENT GLYCEMIC CONTROL: No changes needed to current regimen. * Hold basal insulin * Continue NovoLog per scale ACHS/Q6hrs while NPO * Goal range = 120 - 160 mg/dl * CF = 35 mg/dl/unit * No carb coverage * Pharmacy is signing off of glycemic consult and will no longer be making adjustments to inpatient regimen. Please feel free to re-consult if needed. Thank you. DISCHARGE RECOMMENDATIONS: * A1c of 5.1% is much too low for patient and suggests very high risk of hypoglycemia with current outpatient regimen * Will depend on goals of care at discharge given consideration of Hospice, but reduction in home insulin regimen is certainly warranted * Consider use of low-dose rapid-acting insulin sliding scale vs. discontinuing insulin altogether
[2021-09-24] MEDS: ACETAMINOPHEN 325 MG TAB PO PRN (14:19)
[2021-09-24] MEDS: SENNA 8.6 MG TAB PO SCH (14:19)
[2021-09-24] MEDS: HYDROmorphone INJ 0.5 MG/0.5 ML SYR IV PRN (17:46)
[2021-09-24] MEDS: LATANOPROST 0.005% OP SOLN 2.5 ML BTL OP SCH (20:04)
[2021-09-24] MEDS: cephALEXin 500 MG CAP PO SCH (20:05)
[2021-09-24] MEDS: ENOXAPARIN INJ 30 MG/0.3 ML SYR SQ SCH (21:20)
[2021-09-25] MEDS: oxyCODONE HCL IR 5 MG TAB (IMMEDIATE RELEASE) PO PRN ×2 (05:34→23:16)
[2021-09-25 06:44] LABS: Hematocrit (blood only) 32.6 % (37-47); Hemoglobin 10.1 g/dL (12.0-16.0); Mean Corpuscular Volume 103.2 fL (80-100); Mean Platelet Volume 9.7 fL (7.4-10.4); Platelet Count 366 K/uL (130-400); RDW Coefficient of Variation 16.6 % (11.5-14.5); RDW Standard Deviation 62.9 fL (36.4-46.3); Red Blood Count 3.16 M/uL (4.2-5.4); White Blood Count 13.79 K/uL (4.8-10.8)
[2021-09-25 07:03] LABS: BUN Creatinine Ratio 19.9 (10-20); Calcium 10.9 mg/dl (8.5-10.1); Creatinine Clr Calc Pharmacy 22.4 ml/min; Est GFR (African American) 30.5 ml/min; Est GFR (Non-African American) 26.3 ml/min; Magnesium 2.1 mg/dl (1.7-2.4); Potassium 4.2 mmol/L (3.5-5.1)
[2021-09-25 07:21] LABS: Prothrombin Time 10.4 Seconds (9.0-12.0)
[2021-09-25] MEDS: MULTIVITAMIN TAB PO SCH (07:44)
[2021-09-25] MEDS: SENNA 8.6 MG TAB PO SCH (07:44)
[2021-09-25] MEDS: POLYETHYLENE (MIRALAX) 17 GM PACK PO SCH ×2 (07:44→20:55)
[2021-09-25] MEDS: VITAMIN B COMPLEX TAB PO SCH (07:44)
[2021-09-25] MEDS ORDERED: Nursing to Pharmacy Communication SCH (07:45)
[2021-09-25] MEDS: INSULIN ASPART PER UNIT SC SCH ×4 (07:52→23:15)
[2021-09-25] MEDS: dilTIAZem HCl 60 MG TAB PO SCH ×3 (08:49→20:55)
[2021-09-25] MEDS: cephALEXin 500 MG CAP PO SCH ×2 (08:55→20:56)
[2021-09-25] MEDS: FLUTICASONE/VILANTEROL 200/25MCG 14 PUFFS/INHALER INH SCH (08:55)
[2021-09-25] MEDS: cloNIDine HCL 0.1 MG TAB PO SCH (08:55)
[2021-09-25] MEDS: DORZOLAMIDE/TIMOLOL 22.3/6.8MG/ML 10 ML BTL OP SCH ×2 (08:56→20:58)
[2021-09-25] MEDS: TRIAMCINOLONE ACET 0.1% CR 15 GM TUBE TOP SCH ×2 (08:56→20:56)
--- NOTE | 2021-09-25 10:28 | Anesthesiology Consultation ---
Date of Service September 25, 2021 Assessment & Plan (1) Encounter for pre-operative examination: Chart Review Chart Review: entry level marketing representative initiated History Surgery Operation Date: 09/25/21 14:00 Proposed Procedures p Open Reduction Internal Fixation Left Distal Femur Fracture(Left) - Scott Parikh DO Height/Weight Height: 5 ft 5 in Weight: 70.2 kg Allergies Allergy/AdvReac Type Severity Reaction Status Date / Time No Known Allergies Allergy Verified 09/21/21 15:01 Medications Home Medications Medication Instructions Recorded Confirmed Last Taken aspirin 81 mg tablet,delayed 81 mg PO DAILY tab 03/18/19 09/21/21 Unknown release brimonidine 0.2 % eye drops 1 drops OP BID ml 03/18/19 09/21/21 Unknown diltiazem HCl 90 mg tablet 90 mg PO TID tab 03/18/19 09/21/21 09/21/21 latanoprost 0.005 % eye drops 1 drops OP HS ml 03/18/19 09/21/21 Unknown multivitamin (Daily Multi-Vitamin) 1 tab PO DAILY 03/18/19 09/21/21 Unknown glucos sul [id number] 1 cap PO BID 04/01/19 09/21/21 Unknown [Glucosamine Chondroitin] cholecalciferol (vitamin D3) 25 25 mcg PO DAILY 10/03/19 09/21/21 Unknown mcg (1,000 unit) capsule fluticasone 250 mcg-salmeterol 50 1 puffs INH BID 10/03/19 09/21/21 Unknown mcg/dose blistr powdr for inhalation (Advair Diskus) insulin aspar prot-insulin aspart 10 units SQ BID 12/26/19 09/21/21 Unknown 100 unit/mL (70-30) subcutaneous pen (Novolog Mix 70-30FlexPen U-100) dorzolamide 2 %-timolol 0.5 % (PF) 1 drp OPHTHALMIC (EYE) BID 04/26/20 09/21/21 Unknown eye drops clonidine HCl 0.1 mg tablet 0.1 mg PO DAILY #90 tab 04/07/21 09/21/21 Unknown triamcinolone acetonide 0.1 % 1 applic TOPICAL BID 04/07/21 09/21/21 Unknown topical cream vitamin B complex 1 tab PO DAILY #90 tab 04/07/21 09/21/21 Unknown lisinopril 10 mg tablet 10 mg PO DAILY #90 tab 05/17/21 09/21/21 Unknown Active Medications Generic Name Dose Route Start Last Admin Trade Name Eric PRN Reason Stop Dose Admin Acetaminophen 650 mg 09/21/21 20:24 09/24/21 14:19 Acetaminophen 325 Mg Tab PO 10/21/21 20:23 650 mg Q4H PRN Administration pain/fever Bisacodyl 5 mg 09/21/21 20:24 09/24/21 08:09 Bisacodyl 5 Mg Tabec PO 10/21/21 20:23 5 mg HS PRN Administration Constipation Cephalexin HCl 500 mg 09/24/21 21:00 09/25/21 08:55 Cephalexin 500 Mg Cap PO 09/29/21 20:59 500 mg BID GHULAM Administration Protocol Clonidine HCl 0.1 mg 09/22/21 09:00 09/25/21 08:55 Clonidine Hcl 0.1 Mg Tab PO 10/22/21 08:59 0.1 mg DAILY GHULAM Administration Diltiazem HCl 90 mg 09/21/21 21:00 09/25/21 08:49 Diltiazem Hcl 60 Mg Tab PO 10/21/21 20:59 Not Given TID GHULAM Dorzolamide/Timolol 1 drops 09/21/21 21:00 09/25/21 08:56 Dorzolamide/Timolol 22.3/6.8mg/Ml 10 Ml Btl OP 10/21/21 20:59 1 drops BID GHULAM Administration Enoxaparin Sodium 30 mg 09/21/21 22:00 09/24/21 21:20 Enoxaparin Inj 30 Mg/0.3 Ml Syr SQ 10/21/21 21:59 30 mg Q24H GHULAM Administration Fluticasone/Vilanterol 1 puffs 09/22/21 09:00 09/25/21 08:55 Fluticasone/Vilanterol 200/25mcg 14 Puffs/Inhaler INH 10/22/21 08:59 1 puffs DAILY GHULAM Administration Hydromorphone HCl 0.25 mg 09/24/21 12:52 09/24/21 17:46 Hydromorphone Inj 0.5 Mg/0.5 Ml Syr IV 10/08/21 12:51 0.25 mg Q6H PRN Administration Pain Latanoprost 1 drops 09/21/21 21:00 09/24/21 20:04 Latanoprost 0.005% Op Soln 2.5 Ml Btl OP 10/21/21 20:59 1 drops HS GHULAM Administration Lisinopril 10 mg 09/22/21 09:00 09/24/21 08:11 Lisinopril 10 Mg Tab PO 10/22/21 08:59 10 mg DAILY GHULAM Administration Multivitamins 1 tab 09/22/21 09:00 09/25/21 07:44 Multivitamin Tab PO 10/22/21 08:59 Not Given DAILY GHULAM Oxycodone HCl 5 mg 09/22/21 13:51 09/25/21 05:34 Oxycodone Hcl Ir 5 Mg Tab (Immediate Release) PO 10/06/21 13:50 5 mg Q4H PRN Administration Severe Pain (7,8,9,10) on NRS Polyethylene Glycol 17 gm 09/24/21 21:00 09/25/21 07:44 Polyethylene (Miralax) 17 Gm Pack PO 10/24/21 20:59 Not Given BID GHULAM Sennosides 17.2 mg 09/24/21 13:15 09/25/21 07:44 Senna 8.6 Mg Tab PO 10/24/21 13:14 Not Given QAM GHULAM Triamcinolone Acetonide 1 appln 09/21/21 21:00 09/25/21 08:56 Triamcinolone Acet 0.1% Cr 15 Gm Tube TOP 10/21/21 20:59 Not Given BID GHULAM Vitamin B Complex 1 tab 09/22/21 09:00 09/25/21 07:44 Vitamin B Complex Tab PO 10/22/21 08:59 Not Given DAILY GHULAM NPO Date Last Intake of Fluids: 09/25/21 Time Last Intake of Fluids: 09:00 Last Intake of Fluids Comment: Small sip with medication Past Medical History Medical History Chronic kidney disease, stage 3 Chronic obstructive pulmonary disease (COPD) Diabetes mellitus type 2 in nonobese Essential hypertension Osteoarthritis Past Family History Family History Denies family history of Kidney disease Past Surgical History Surgical History S/p reverse total shoulder arthroplasty S/P total hip arthroplasty Social History Smoking Status: Former smoker Smoking End Date: 10 YEARS AGO Hx Alcohol Use: No Hx Substance Use: No Physical Exam Vital Signs Last Vital Signs Temp 97.9 F 09/25/21 09:11 Pulse 70 09/25/21 07:33 Resp 20 09/25/21 07:33 BP 154/74 H 09/25/21 07:33 Pulse Ox 92 09/25/21 07:33 Testing Laboratory Results 09/25/21 06:16 09/25/21 06:16 PT 10.4 Seconds (9.0-12.0) 09/25/21 06:16 INR 1.0 (0.9-1.1) 09/25/21 06:16 Hemoglobin A1c 5.1 % (4.5-5.6) 09/22/21 08:03 Urine Color Dark Yellow 09/22/21 14:29 Urine Appearance Turbid (Clear) A 09/22/21 14:29 Urine pH 5.0 (4.5-7.5) 09/22/21 14:29 Ur Specific [place] 1.017 (1.000-1.030) 09/22/21 14:29 Urine Protein 2+ (Negative) H 09/22/21 14:29 Urine Glucose (UA) Negative (Negative) 09/22/21 14: Urine Ketones Negative (Negative) 09/22/21 14:29 Urine Nitrite Positive (Negative) A 09/22/21 14:29 Ur Leukocyte Esterase 2+ (Negative) H 09/22/21 14:29 Urine WBC (Auto) >30 /hpf (0-5) H 09/22/21 14:29 Urine RBC (Auto) 10-30 /hpf (0-4) H 09/22/21 14:29 U Hyaline Cast (Auto) 1-5 /lpf (0-5) 09/22/21 14:29 U Epithel Cells (Auto) 10-20 /lpf (0-5) H 09/22/21 14:29 Urine Bacteria (Auto) 4+ (Negative) H 09/22/21 14:29 09/22/21 14:29 Urine Culture - Final Urine,Clean Catch Escherichia coli 09/25/21 07:41 POC Glucose 100 H Electrocardiogram Date: 09/21/21 Normal sinus rhythm, rate 61 bpm Left axis deviation Moderate voltage criteria for LVH, may be normal variant Abnormal ECG When compared with ECG of 15-MAR-2018 11:05, No significant change was found Confirmed by Amando Travis ([id number]) on 09/21/2021 3:30:12 PM
[2021-09-25] MEDS ORDERED: ONDANSETRON INJ 2 MG/ML 2 ML VIAL IV PRN (10:40)
[2021-09-25] MEDS ORDERED: ePHEDrine sulfate 50 MG/ML AMP IV PRN (10:40)
[2021-09-25] MEDS ORDERED: ATROPINE SULFATE 0.1 MG/ML 10ML SYR IV PRN (10:40)
--- NOTE | 2021-09-25 11:06 | History & Physical Bridge Note ---
Date of Service September 25, 2021 History & Physical Bridge Note I have examined the patient, reviewed the History & Physical and in the interval since the performance of the History & Physical I have noted the following changes of clinical significance: We will require open reduction internal fixation left angulated distal femoral periprosthetic fracture.
--- NOTE | 2021-09-25 11:11 | Orthopedic Consultation ---
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 Treatment options were discussed with the patient and her family. They would like to proceed with surgical intervention palliative treatment of her fracture. We will proceed with ORIF femoral shaft fracture. The fracture is just distal to the stem from her total hip arthroplasty. Dr. Parikh will discuss surgical intervention, risk/benefits/alternatives to surgery with the patient and her family. Plan will be for surgery today. History of Present Illness Reason for Consultation: Left distal femur fracture Requesting Physician: Amari White Attending Physician: Amari White History of Present Illness 89 y/o w/ PMHx DM2, CKD, metastatic breast cancer to bone, L total hip arthroplasty. 08/07/2017 patient was transferring from the commode to her chair and had acute onset of severe left distal thigh pain. X-rays demonstrated a distal femoral shaft fracture with significant angulation. Fracture likely metastatic. Patient is transferring to hospice. Allergies Allergy/AdvReac Type Severity Reaction Status Date / Time No Known Allergies Allergy Verified 09/21/21 15:01 Home Medications Medication Instructions Recorded Confirmed Type aspirin 81 mg tablet,delayed 81 mg PO DAILY tab 03/18/19 09/21/21 History release brimonidine 0.2 % eye drops 1 drops OP BID ml 03/18/19 09/21/21 History diltiazem HCl 90 mg tablet 90 mg PO TID tab 03/18/19 09/21/21 History latanoprost 0.005 % eye drops 1 drops OP HS ml 03/18/19 09/21/21 History multivitamin (Daily Multi-Vitamin) 1 tab PO DAILY 03/18/19 09/21/21 History glucos sul [id number]-Mn 1 cap PO BID 04/01/19 09/21/21 History [Glucosamine Chondroitin] cholecalciferol (vitamin D3) 25 25 mcg PO DAILY 10/03/19 09/21/21 History mcg (1,000 unit) capsule fluticasone 250 mcg-salmeterol 50 1 puffs INH BID 10/03/19 09/21/21 History mcg/dose blistr powdr for inhalation (Advair Diskus) insulin aspar prot-insulin aspart 10 units SQ BID 12/26/19 09/21/21 History 100 unit/mL (70-30) subcutaneous pen (Novolog Mix 70-30FlexPen U-100) dorzolamide 2 %-timolol 0.5 % (PF) 1 drp OPHTHALMIC (EYE) BID 04/26/20 09/21/21 History eye drops clonidine HCl 0.1 mg tablet 0.1 mg PO DAILY #90 tab 04/07/21 09/21/21 Rx triamcinolone acetonide 0.1 % 1 applic TOPICAL BID 04/07/21 09/21/21 History topical cream vitamin B complex 1 tab PO DAILY #90 tab 04/07/21 09/21/21 Rx lisinopril 10 mg tablet 10 mg PO DAILY #90 tab 05/17/21 09/21/21 Rx Patient History Medical History Chronic kidney disease, stage 3 Chronic obstructive pulmonary disease (COPD) Diabetes mellitus type 2 in nonobese Essential hypertension Osteoarthritis Surgical History S/p reverse total shoulder arthroplasty S/P total hip arthroplasty Family History Denies family history of Kidney disease Social History Smoking Status: Former smoker Tobacco Type: Cigarettes Hx Alcohol Use: No Hx Substance Use: No Preferred Language: Lao Communication Ability: Effective Animal Ride Attendant Required: No Beliefs That Will Affect Care: None marital status: / Current Living Situation: Family Current Living Situation Comment: LIVES WITH ELDERLY SON How many Children do You have: 2 Feels Safe at Home: Yes Assistive Devices: Brace/Splint/Immobilizer, Glasses, Oxygen - Continuous and Walker Review of Systems Review of Systems: All systems reviewed & are unremarkable except as noted in Subjective Physical Exam Constitutional: + frail appearing; no acute distress and no altered mental status Respiratory: normal respiratory effort; no respiratory distress Cardiovascular: Rate/Rhythm: regular rate and regular rhythm Musculoskeletal: Brace in place to left distal femur with angulation. Tenderness to distal femur. Distally n/v status and sensation intact. Skin: no rashes, warm and dry Neurologic: normal touch/pain/proprioception Psychiatric: A+Ox3, euthymic affect Results & Data ([facility]) Vital Signs (Past 12 Hours) Vital Signs Temp Pulse Resp BP Pulse Ox 09/25/21 09:11 36.6 C 09/25/21 07:33 36 C L 70 20 154/74 H 92 Diagnostic Findings XR knee LT 1 or 2V routine HISTORY: 89 years-old Female severe L knee pain after possible injury acute left knee pain COMPARISON: CT left hip 09/21/2020 TECHNIQUE: 2 views of the left knee FINDINGS: There is an acute complete transverse fracture involving the distal femoral diaphysis which demonstrates 1.5 cm lateral displacement with 44 degrees medial and 65 degrees dorsal displacement. There is suggestion of an underlying 3.8 cm lytic mass. Moderate soft tissue swelling. Arterial calcifications. Partially imaged femoral stem associated with the hip arthroplasty. IMPRESSION: Acute pathologic angulated and displaced fracture of the distal left femoral diaphysis with underlying lytic metastatic bone lesion.
[2021-09-25] MEDS ORDERED: PROPOFOL IV EMULSION 10 MG/ML 20 ML VIAL IV ONE ×3 (11:35→14:17)
[2021-09-25] MEDS ORDERED: BUPIVACAINE 0.5 % 5 MG/1 ML PF 10ML VIAL ONE (11:35)
[2021-09-25] MEDS ORDERED: LIDOCAINE 2% 2 ML VIAL/AMP(20MG/ML) INFIL ONE (11:35)
[2021-09-25] MEDS ORDERED: PHENYLEPHRINE 100MCG/ML 5ML SYR ONE (12:08)
[2021-09-25] MEDS ORDERED: ePHEDrine sulfate 50 MG/ML SYR ONE (12:08)
[2021-09-25] MEDS ORDERED: ceFAZolin 330 MG/ML 1 GM VIAL ONE (12:11)
--- NOTE | 2021-09-25 14:17 | Fluoroscopy Report ---
FL femur LT 2V HISTORY: 89 years-old Female ORIF LEFT FEMUR acute fracture of the left femur COMPARISON: Left femur radiographs 09/24/2021 TECHNIQUE: 6 spot fluoroscopic images of the left femur were obtained utilizing 118.8 seconds fluoros copy time FINDINGS: Left hip total joint arthroplasty. Acute pathologic fracture of the femoral diaphysis demonstrates im proved alignment status post placement of a large plate and screw fixation device. Expected postopera tive soft tissue swelling with deep tissue air. Arterial calcifications. IMPRESSION: Fluoroscopic assistance as above. ACT 112: Negative or not required by law. The above report was generated using voice recognition software. It may contain grammatical, syntax o r spelling errors. Electronically signed by: Douglas Ferrari M.D. 09/25/2021 2:16 PM
--- NOTE | 2021-09-25 14:44 | Post Operative Brief Note ---
Immediate Post Op Note v1 Date of Surgery September 25, 2021 Pre & Post Diagnosis Operation Date: 09/25/21 14:00 Pre-Op Diagnosis: Left middle/distal one third pathologic angulated periprosthetic femoral shaft fracture, metastatic breast cancer and pathologic fracture to left middle/distal femur, just distal to the stem from her total hip arthroplasty Post-Op Diagnosis: Left middle/distal one third pathologic angulated periprosthetic femoral shaft fracture, metastatic breast cancer and pathologic fracture to left middle/distal femur, just distal to the stem from her total hip arthroplasty I identified the patient and participated in the time-out.: Yes Procedure Operation Date: 09/25/21 14:00 Actual Procedures p Open Reduction Internal Fixation Left middle/distal one third pathologic, periprosthetic angulated femur Fracture with application allograft, Bone Biopsy left femur at fracture site - Scott Parikh DO Surgeon Scott Parikh DO Asphalt Roller Operator Artis De Leon PA-C Estimated Blood Loss 200 Findings Consistent with Post-Op Diagnosis Specimens Bone biopsy fracture site left middle/distal one third pathologic femur fx Drains Alvarez Catheter (arrived in the operating room with alvarez catheter intact) Anesthesia Type MAC Spinal Regional Complications none Disposition Accompanied Patient To Recovery: No
[2021-09-25 14:46] LABS: iSTAT Creatinine 1.7 mg/dl (0.6-1.3); iSTAT Hemoglobin 9.2 g/dl (12.0-16.0); iSTAT Ionized Calcium 1.63 mmol/l (1.12-1.32); iSTAT Potassium 4.5 mmol/L (3.3-5.0)
[2021-09-25] MEDS: fentaNYL citrate 100 MCG/2 ML VIAL IV PRN ×2 (14:56→15:01)
--- NOTE | 2021-09-25 15:36 | Anesthesiology Progress Note ---
Date of Service September 25, 2021 Anesthesia Post Procedure Vital Signs Vital Signs: Temp Pulse Pulse Resp BP BP Pulse Ox 09/25/21 15:25 70 16 136/78 100 09/25/21 15:15 68 16 125/73 99 09/25/21 15:05 68 16 157/73 H 100 09/25/21 14:57 97.3 F L 69 16 152/89 H 99 09/25/21 09:11 97.9 F 09/25/21 07:33 96.8 F L 70 20 154/74 H 92 09/24/21 22:47 97.9 F 69 16 128/68 92 09/24/21 20:02 72 132/71 90 Pain Intensity Right Shoulder: Pain Intensity: 8 Generalized: Pain Intensity: 7 Abdomen: Pain Intensity: 7 Left Leg: Pain Intensity: 7 Transfer of Care Handoff Completed per policy Notes Mental Status: alert / awake / arousable and participated in evaluation Patient Amnestic to Procedure: Yes Nausea / Vomiting: adequately controlled Pain: adequately controlled Airway Patency, RR, SpO2: stable & adequate BP & HR: stable & adequate Hydration State: stable & adequate Neuraxial Anesthesia: was administered and sensory block is resolving Anesthetic Complications: no major complications apparent and Pt Satisfied with anesthetic care
[2021-09-25] MEDS ORDERED: ceFAZolin 2000MG 2,000 MG/15 ML SYR IV ONE (16:01)
[2021-09-25] MEDS ORDERED: MAGNESIUM HYDROXIDE SUSP 30 ML UDC PO PRN (16:03)
[2021-09-25] MEDS ORDERED: bisacodyL 10 MG SUPP PR PRN (16:03)
[2021-09-25] MEDS ORDERED: NALOXONE HCL 0.4 MG/1 ML VIAL/CARP IV PRN (16:03)
[2021-09-25] MEDS: SODIUM CHLORIDE 0.9% 1000ML 1,000 ML IV SCH (16:20)
[2021-09-25] MEDS ORDERED: NITROGLYCERIN 2% OINTMENT 30GM TUBE EXT ONE (18:22)
--- NOTE | 2021-09-25 18:26 | Hospitalist Progress Note ---
Date of Service September 25, 2021 Assessment & Plan (1) Chest pain: Plan: EKG obtained post-op -- anterolateral ST depressions in V4-V6 (new). nitropaste 0.5 inch top x 1. serial trops. certainly given her age and CAD risk factors she could easily have ischemia in the midst of her surgery and physical stress. either way we will attempt to be as conservative as possible given the transition to hospice soon. 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 s/p ORIF by Dr Parikh today - appreciate his assistance. Pain control post-op. Immobilizer in place. Other recs per ortho. (3) Metastatic cancer: Plan: Primary site likely the breast. Innumerable mets to bone, lymph nodes, liver, +/- lungs. Bone bx of L femur during the surgery today. Still hopeful for home with hospice at discharge if family can provide her care. (4) Urinary retention: Plan: cont alvarez. UTI contributing, narcotics, etc. (5) Urinary tract infection: Plan: 2nd E coli - jones sensitive complete 7 days in total IV/PO abx therapy day #4 of Tx today cont keflex (6) Hypercalcemia: Plan: likely malignancy related Corrected calcium 11.9 at admission Ca level had improved with IVF level rising slowly again will recheck am - but likely to give zometa tomorrow (7) Diabetes mellitus type 2 in nonobese: Plan: On insulin 70/30 10 units twice daily prior to admission Multiple episodes of hypoglycemia including day prior to admission, and day of admission - per family cont novolog correction as needed would dc insulin at discharge if going with hospice (8) Essential hypertension: Plan: Continue clonidine 0.1 mg daily Hold home diltiazem this am - resume post-op Hold lisinopril until the am (9) Chronic kidney disease, stage 3: Plan: Baseline creatinine 1.6-1.8 bmp in am (10) Chronic obstructive pulmonary disease (COPD): Plan: cont home inhalers NC O2 (11) DVT prophylaxis: Plan: lovenox 30mg daily consider changing to asa 81mg BID after her femur surgery Plan: daughter extensively updated at bedside yesterday, and by phone today Admission and Anticipated Discharge Date Admission Date: September 21, 2021 Subjective saw patient post-op in the late afternoon she had her dinner tray in front of her and said "you can take this (the meal) away" she reported poor appetite she was confused, unable to given extensive history initially she told me her shoulders were hurting, then stated it was her chest when I asked her more specific questions about the chest it took her a while to give more info - ultimately she pointed to the left breast she couldn't tell me when it started she denied any pleuritic component to it she did state that "maybe I'm a little short of breath" did c/o pain in left leg over femur fracture/operation site Review of Systems Review of Systems: gen - fatigue, tired cv - see HPI pulm - no cough GI - no nausea Physical Exam Physical Exam: gen - confused, frail, unable to give great history mouth - MM dry neck - no JVD heart - RRR, s1 s2 lungs - CTA b/l chest - nontender to palpation abd - distended - mild, unchanged, BS+, NT, no HSM ext - left leg in immobilizer; pulses 2+ b/l psych - oriented to person/place only Results & Data Results & Data ([facility]) Vital Signs (Past 12 Hours) Vital Signs Temp Pulse Pulse Resp BP BP Pulse Ox 09/25/21 17:19 83 16 156/82 H 91 09/25/21 15:35 36.4 C L 70 16 146/68 H 99 09/25/21 15:25 70 16 136/78 100 09/25/21 15:15 68 16 125/73 99 09/25/21 15:05 68 16 157/73 H 100 09/25/21 14:57 36.3 C L 69 16 152/89 H 99 09/25/21 09:11 36.6 C 09/25/21 07:33 36 C L 70 20 154/74 H 92 Laboratory Results Laboratory Results - last 24 hr 09/24/21 09/25/21 09/25/21 20:38 06:16 06:16 WBC RBC Hgb POC Hgb Hct POC Hct MCV MCH MCHC RDW Std Deviation RDW Coeff of Tyler Plt Count MPV PT 10.4 INR 1.0 POC Sodium Sodium POC Potassium Potassium POC Chloride Chloride Carbon Dioxide POC Total CO2 Anion Gap POC Anion Gap POC BUN BUN Creatinine 1.71 H POC Creatinine Est Cr Clr Drug Dosing 22.4 Est GFR ( Amer) 30.5 Est GFR (Non-Af Amer) 26.3 BUN/Creatinine Ratio Glucose POC Glucose 115 H POC Glucose (other) Calcium POC Ioniz Calcium Anitha Magnesium 25-OH Vitamin D Total Blood Type Antibody Screen 09/25/21 09/25/21 09/25/21 06:16 06:16 06:16 WBC 13.79 H RBC 3.16 L Hgb 10.1 L POC Hgb Hct 32.6 L POC Hct MCV 103.2 H MCH 32.0 MCHC 31.0 L RDW Std Deviation 62.9 H RDW Coeff of Tyler 16.6 H Plt Count 366 MPV 9.7 PT INR POC Sodium Sodium 138 POC Potassium Potassium 4.2 POC Chloride Chloride 108 H Carbon Dioxide 23 POC Total CO2 Anion Gap 7 POC Anion Gap POC BUN BUN 34 H Creatinine 1.71 H POC Creatinine Est Cr Clr Drug Dosing 22.4 Est GFR ( Amer) 30.5 Est GFR (Non-Af Amer) 26.3 BUN/Creatinine Ratio 19.9 Glucose 92 POC Glucose POC Glucose (other) Calcium 10.9 H POC Ioniz Calcium Anitha Magnesium 2.1 25-OH Vitamin D Total 49.3 Blood Type Antibody Screen 09/25/21 09/25/21 09/25/21 07:41 13:30 13:51 WBC RBC Hgb POC Hgb 9.2 L Hct POC Hct 27 L MCV MCH MCHC RDW Std Deviation RDW Coeff of Tyler Plt Count MPV PT INR POC Sodium 139 Sodium POC Potassium 4.5 Potassium POC Chloride 108 Chloride Carbon Dioxide POC Total CO2 23 L Anion Gap POC Anion Gap 14.0 L POC BUN 32 H BUN Creatinine POC Creatinine 1.7 H Est Cr Clr Drug Dosing Est GFR ( Amer) Est GFR (Non-Af Amer) BUN/Creatinine Ratio Glucose POC Glucose 100 H POC Glucose (other) 101 H Calcium POC Ioniz Calcium Anitha 1.63 H* Magnesium 25-OH Vitamin D Total Blood Type A Positive Antibody Screen NEGATIVE 09/25/21 15:00 WBC RBC Hgb POC Hgb Hct POC Hct MCV MCH MCHC RDW Std Deviation RDW Coeff of Tyler Plt Count MPV PT INR POC Sodium Sodium POC Potassium Potassium POC Chloride Chloride Carbon Dioxide POC Total CO2 Anion Gap POC Anion Gap POC BUN BUN Creatinine POC Creatinine Est Cr Clr Drug Dosing Est GFR ( Amer) Est GFR (Non-Af Amer) BUN/Creatinine Ratio Glucose POC Glucose 107 H POC Glucose (other) Calcium POC Ioniz Calcium Anitha Magnesium 25-OH Vitamin D Total Blood Type Antibody Screen PG Care Time/CCT Total # of Minutes Spent Total Time Spent with Patient: Total time spent is greater than 50% in coordination of care (as documented) at patient's floor/unit and/or counseling patient: Coding Level of Care Code 13479 Subseq Hosp Care Lvl 3 Diagnoses 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
[2021-09-25] MEDS: ACETAMINOPHEN 325 MG TAB PO PRN (19:33)
[2021-09-25] MEDS: LATANOPROST 0.005% OP SOLN 2.5 ML BTL OP SCH (20:56)
[2021-09-25] MEDS: DOCUSATE SODIUM 100 MG CAP PO SCH (20:57)
[2021-09-25] MEDS ORDERED: SENNA 8.6 MG TAB PO SCH (21:00)
--- NOTE | 2021-09-25 21:06 | Operative Report (OR) ---
DATE OF PROCEDURE: 09/25/2021. PREOPERATIVE DIAGNOSES: 1. Left middle/distal one-third pathologic, angulated, periprosthetic femoral shaft fracture. 2. Metastatic breast cancer. 3. Pathologic fracture of the left middle/distal one-third of the femur. POSTOPERATIVE DIAGNOSES: 1. Left middle/distal one-third pathologic, angulated, periprosthetic femoral shaft fracture. 2. Metastatic breast cancer. 3. Pathologic fracture of the left middle/distal one-third of the femur. PROCEDURE: 1. Open reduction and internal fixation, left middle/distal one-third pathologic, angulated, peripro sthetic femur fracture with application, allograft. 2. Bone biopsy, left femur at fracture site. SURGEON: Scott Parikh DO. DATA CENTER ENGINEER: Artis De Leon PA-C who was present for patient positioning, sterile prep and drape, m anagement of retractors and instruments. He was present through the critical portions of the case inc luding wound closure, application of sterile dressing and transport of the patient to recovery. ANESTHESIA: Spinal MAC, regional. SPECIMENS: Bone biopsy, the fracture site middle distal one-third. DRAINS: None. COMPLICATIONS: None. BLOOD LOSS: 200 mL PERTINENT HISTORY: This is an 89-year-old female with stage IV metastatic breast disease, who is adm itted to [facility] for other medical concerns. She had a simple twist of her left femur and felt a snap and pain, unable to ambulate. Radiographs were obtained, noted to have a path ologic fracture of the junction middle distal one-third, left femur. Orthopedics was consulted and r adiographs were reviewed and the patient was scheduled for surgery as indicated. All potential risks, benefits, complications, alternatives, rehab potential for incomplete relief sym ptoms, need for further surgery, DVT, PE, , persistent pain, swelling, scarring, weakness, neuro vascular injury, wound complications, hardware failure, nonunion, malunion, bone fracture and recurre nce of metastatic disease was discussed with the patient. The patient decided to proceed with the pr ocedure as indicated. DESCRIPTION OF PROCEDURE: The patient was taken to the operative suite and placed supine on the oper ating table. After review of consent and identification of proper site, the patient was sedated. Sp inal anesthetic was administered, the patient was placed supine on the operating table. After review of consent and identification of proper operative site, the patient was then sterilely prepped and d raped in the usual fashion. After surgical timeout was performed, a 10 blade scalpel was used to make an incision along the later al aspect of the left distal femur beginning just proximal to Gerdy's tubercle of the tibia and exten ding proximally, centered over the posterior one-third of the femur. The incision was deepened throu gh skin and subcutaneous tissue. Meticulous hemostasis was achieved with electrocautery. Full thick ness skin flaps were developed and retracted and protected with skin rakes. Next, the iliotibial ban d was then incised in line with the skin incision with a 10 blade scalpel. Electrocautery was used t o maintain hemostasis. Next, a subvastus approach was then performed with elevation of the vastus lateralis with large Benne tt retractors. Electrocautery was performed, and then periosteum was then incised with electrocauter y and elevated, revealing the fracture and then the lateral aspect of the femur was then defined all the way to the level of the knee joint extending proximally proximal to the hip prosthesis as identif ied with radiographs. Next, the fracture was noted to be extensive with large anterior loss of bone at the fracture site. It was noted to be atypical appearing immature clot and other tissue type, whi ch was unrecognizable, possibly nazanin to breast tissue. This tissue was then sampled and a large port ion was sent for pathological analysis. Next, the site was then copiously irrigated with pulsatile l avage and suctioned clean and dry. Next, the 14-hole [employer]ynthe[employer] locking distal femoral periarticular plate was then aligned under live fluo roscopic assistance. Mahad clamps x2 were then used to stabilize the fracture and the plate in near anatomic stabilization and position. Next, three guide pins were placed in the distal aspect of the plate to stabilize the distal aspect of the femur. Alignment was confirmed using AP and lateral fluo roscopic projections and then the distal locking screws were then placed through the plate under live fluoroscopic assistance followed by placement of the locking screws adjacent to the fracture to main tain anatomic alignment and fixation and the remainder of the screws, which could be safely placed, w ere locked in place under live fluoroscopic assistance. Next, the site was irrigated with pulsatile lavage until clear. Multiple half screws and short screws unicortical, were used along the lateral aspect of the femoral stem implant for the total hip above. Once this was completed, proximally 10 cortices were achieved at the proximal half of the fracture. Abundantly more cortices were achieved distal to the fracture. Fracture site was then noted to be completely stable after application of the large plate and the site of the pathologic fracture was th en bone grafted with cancellous bone chips and impacted with a mallet and bone tamp. After final irr igation was performed with sterile saline with pulsatile lavage, the vastus was then closed laterally with interrupted #1 Vicryl. The iliotibial band was then closed proximal to distal with #1 Vicryl a nd the dermis was closed using buried interrupted 2-0 Vicryl sutures, followed by application of mult iple skin linh. A sterile compressive dressing was applied after local anesthetic was injected. After the soft dressing was applied, overwrapped in Donal wrap, a knee immobilizer was applied. The pa tient was awakened and taken to recovery in stable condition. Job ID: [id number]
[2021-09-26] MEDS: SODIUM CHLORIDE 0.9% 1000ML 1,000 ML IV SCH (01:32)
[2021-09-26] MEDS: oxyCODONE HCL IR 5 MG TAB (IMMEDIATE RELEASE) PO PRN ×3 (05:29→20:52)
[2021-09-26] MEDS: INSULIN ASPART PER UNIT SC SCH ×5 (05:32→20:47)
[2021-09-26] MEDS ORDERED: INSULIN ASPART PER UNIT SC SCH (06:00)
[2021-09-26] MEDS ORDERED: Nursing to Pharmacy Communication SCH (06:00)
[2021-09-26 06:24] LABS: Hematocrit (blood only) 29.1 % (37-47); Mean Corpuscular Hemoglobin 31.7 pg (25-34); Mean Corpuscular Hgb Conc 30.9 g/dL (32-36); Mean Corpuscular Volume 102.5 fL (80-100); Mean Platelet Volume 9.1 fL (7.4-10.4); Platelet Count 327 K/uL (130-400); RDW Coefficient of Variation 16.4 % (11.5-14.5); RDW Standard Deviation 61.1 fL (36.4-46.3); Red Blood Count 2.84 M/uL (4.2-5.4); White Blood Count 13.54 K/uL (4.8-10.8)
[2021-09-26 07:08] LABS: Troponin I 0.06 ng/ml (0-0.04)
[2021-09-26 07:19] LABS: BUN Creatinine Ratio 22.5 (10-20); Calcium 10.4 mg/dl (8.5-10.1); Creatinine Clr Calc Pharmacy 25.3 ml/min; Est GFR (African American) 35.4 ml/min; Est GFR (Non-African American) 30.5 ml/min; Potassium 4.3 mmol/L (3.5-5.1)
[2021-09-26] MEDS ORDERED: ZOLEDRONIC ACID 4 MG in 0.9 % SODIUM CHLORIDE 100 ML IV ONE (08:30)
[2021-09-26] MEDS: HYDROmorphone INJ 0.5 MG/0.5 ML SYR IV PRN (08:49)
[2021-09-26] MEDS: cephALEXin 500 MG CAP PO SCH ×2 (08:53→20:32)
[2021-09-26] MEDS: cloNIDine HCL 0.1 MG TAB PO SCH (08:54)
[2021-09-26] MEDS: dilTIAZem HCl 60 MG TAB PO SCH ×3 (08:54→20:33)
[2021-09-26] MEDS: MULTIVITAMIN TAB PO SCH (08:56)
[2021-09-26] MEDS: SENNA 8.6 MG TAB PO SCH (08:56)
[2021-09-26] MEDS: FLUTICASONE/VILANTEROL 200/25MCG 14 PUFFS/INHALER INH SCH (08:57)
[2021-09-26] MEDS: TRIAMCINOLONE ACET 0.1% CR 15 GM TUBE TOP SCH ×2 (08:57→20:35)
[2021-09-26] MEDS: VITAMIN B COMPLEX TAB PO SCH (08:57)
[2021-09-26] MEDS: POLYETHYLENE (MIRALAX) 17 GM PACK PO SCH ×2 (08:57→20:52)
[2021-09-26] MEDS ORDERED: MULTIVITAMIN TAB PO SCH (09:00)
[2021-09-26] MEDS: DOCUSATE SODIUM 100 MG CAP PO SCH ×2 (09:02→20:34)
--- NOTE | 2021-09-26 10:28 | Electrocardiogram Report ---
Test Reason : Blood Pressure : / mmHG Vent. Rate : 082 BPM Atrial Rate : 082 BPM P-R Int : 170 ms QRS Dur : 084 ms QT Int : 346 ms P-R-T Axes : 060 -38 074 degrees QTc Int : 404 ms Poor data quality, interpretation may be adversely affected Normal sinus rhythm Left axis deviation Poor R wave progression, consider anterior AR vs. lead placement vs. LVH Nonspecific ST abnormality Abnormal ECG When compared with ECG of 15-MAR-2018 11:05, Nonspecific T wave abnormality, worse in Anterior leads Confirmed by Suhas Coleman ([id number]) on 09/26/2021 10:27:45 AM Referred By: REFERRED SELF Confirmed By:James Coleman
--- NOTE | 2021-09-26 10:29 | Electrocardiogram Report ---
Test Reason : Blood Pressure : / mmHG Vent. Rate : 076 BPM Atrial Rate : 076 BPM P-R Int : 176 ms QRS Dur : 086 ms QT Int : 364 ms P-R-T Axes : 067 -39 078 degrees QTc Int : 409 ms Normal sinus rhythm Left axis deviation Abnormal ECG Confirmed by Suhas Coleman ([id number]) on 09/26/2021 10:28:43 AM Referred By: REFERRED SELF Confirmed By:James Coleman
--- NOTE | 2021-09-26 10:48 | Orthopedic Progress Note ---
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 Continue knee immobilizer at all times. Can remove for hygiene purposes. -A.m. labs: Hemoglobin dropped to 9 from 10.1. Likely due to surgical loss versus dilutional. -Pain management as written -DVT prophylaxis: Lovenox per primary team -As per medicine Admission and Anticipated Discharge Date Admission Date: September 21, 2021 Subjective Patient is postop day 1 ORIF left pathologic femur fracture with bone grafting. Patient does have some pain today but is controlled. No other complaints currently. Review of Systems Review of Systems: All systems reviewed & are unremarkable except as noted in Subjective Physical Exam Physical Exam: Patient is asleep on arrival, easily arousable. She seems alert and answers questions appropriately. Knee immobilizer and dressing intact. Dressing is clean dry and intact. Distally neurovascular status and sensation intact. Toes are mobile. No calf tenderness. Results & Data ([facility]) Vital Signs (Past 12 Hours) Vital Signs Temp Pulse Pulse Pulse Resp BP Pulse Ox 09/26/21 08:20 36.4 C L 96 H 17 158/68 H 92 09/26/21 03:06 36.5 C 78 20 148/64 H 98 09/26/21 00:35 75 09/25/21 23:40 36.5 C 89 24 133/71 93
[2021-09-26] MEDS: DORZOLAMIDE/TIMOLOL 22.3/6.8MG/ML 10 ML BTL OP SCH ×2 (12:13→20:34)
--- NOTE | 2021-09-26 13:59 | Hospitalist Progress Note ---
Date of Service September 26, 2021 Assessment & Plan (1) Chest pain: Plan: post op. resolved. tele overnight wnl. EKG with mild ST changes which have since then resolved. trop scantly elevated - suspect myocardial demand ischemia rather than ACS. cont to monitor. (2) Elevated troponin: Plan: scant elevation. suspect myocardial demand ischemia in setting of her surgery rather than ACS. (3) Shoulder pain, bilateral: Plan: x-rays obtained of left shoulder today - SEVERE OA. voltaren gel qid. steroids for bone pain for metastatic disease likely to help as well. 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 will obtain right shoulder films in am to ensure hardware is intact, r/o bony mets, etc. 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 Pain control post-op. Immobilizer in place. Other recs per ortho. Lovenox DVT proph while here. given hospice status post-d/c -- aspirin? nothing? bone bx pending. (5) Metastatic cancer: Plan: Primary site likely the breast. Innumerable mets to bone, lymph nodes, liver, +/- lungs. Bone bx of L femur during the surgery pending. Will add decadron 2mg daily for bone pain from mets. (6) Urinary retention: Plan: cont alvarez. UTI contributing, narcotics, etc. (7) Urinary tract infection: Plan: 2nd E coli - jones sensitive complete 7 days in total IV/PO abx therapy day #5 of Tx today cont keflex (8) Hypercalcemia: Plan: likely malignancy related Corrected calcium 11.9 at admission Ca level had improved with IVF then started to trend up again since the Ca will likely cont to rise will give zometa 4mg IV x 1 today (9) Diabetes mellitus type 2 in nonobese: Plan: On insulin 70/30 10 units twice daily prior to admission Multiple episodes of hypoglycemia including day prior to admission, and day of admission - per family cont novolog correction as needed would dc insulin at discharge given hospice at discharge (10) Essential hypertension: (11) Chronic kidney disease, stage 3: Plan: Baseline creatinine 1.6-1.8 bmp stable (12) Chronic obstructive pulmonary disease (COPD): Plan: cont home inhalers NC O2 (13) DVT prophylaxis: Plan: lovenox 30mg daily consider changing to asa 81mg BID after her femur surgery (or nothing if going hospice route) Plan: daughter updated by phone today will tx to ortho floor Admission and Anticipated Discharge Date Admission Date: September 21, 2021 Subjective tele overnight wnl patient confused during the visit sleepy did not eat breakfast or lunch today did have BM yesterday pm per staff along with a "smear" of stool today patient states she "hurts all over" she has intermittently complained of both shoulders Review of Systems Review of Systems: gen - weak, fatigue, anorexic cv - no chest pain pulm - no dyspnea GI - no abd pain Physical Exam Physical Exam: gen - confused, frail, sleepy mouth - MMM neck - no JVD heart - RRR, s1 s2, no murmur lungs - CTA b/l abd - again distended, BS+, NT, no HSM ext - left leg in immobilizer; pulses 2+ b/l psych - oriented to person/place only Results & Data Results & Data ([facility]) Vital Signs (Past 12 Hours) Vital Signs Temp Pulse Pulse Pulse Resp BP BP 09/26/21 11:49 36.6 C 91 H 17 136/73 09/26/21 08:20 36.4 C L 96 H 17 158/68 H 09/26/21 08:00 85 09/26/21 03:06 36.5 C 78 20 148/64 H Pulse Ox 09/26/21 11:49 93 09/26/21 08:20 92 09/26/21 08:00 09/26/21 03:06 98 Laboratory Results Laboratory Results - last 24 hr 09/26/21 09/26/21 09/26/21 06:06 07:09 11:04 Sodium 139 Potassium 4.3 Chloride 110 H Carbon Dioxide 22 Anion Gap 7 BUN 34 H Creatinine 1.51 H Est Cr Clr Drug Dosing 25.3 Est GFR ( Amer) 35.4 Est GFR (Non-Af Amer) 30.5 BUN/Creatinine Ratio 22.5 H Glucose 80 POC Glucose 83 95 Calcium 10.4 H Troponin I 09/26/21 09/26/21 09/26/21 12:11 16:09 20:39 Sodium Potassium Chloride Carbon Dioxide Anion Gap BUN Creatinine Est Cr Clr Drug Dosing Est GFR ( Amer) Est GFR (Non-Af Amer) BUN/Creatinine Ratio Glucose POC Glucose 109 H 87 Calcium Troponin I 0.06 H* PG Care Time/CCT Total # of Minutes Spent Total Time Spent with Patient: Total time spent is greater than 50% in coordination of care (as documented) at patient's floor/unit and/or counseling patient: Coding Level of Care Code 27968 Subseq Hosp Care Lvl 3 Diagnoses Chest pain R07.9 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
--- NOTE | 2021-09-26 15:44 | XRay Report ---
LEFT SHOULDER 4 VIEWS HISTORY: Left shoulder pain. Fall. h/o reverse shoulder replacement; pain. COMPARISON: None. FINDINGS: There is no fracture or dislocation. The left clavicle is intact. There is a left shoulder effusion with a 1 cm loose body seen lateral to the humerus. Large marginal osteophytes with severe c artilage space narrowing and [id number] articulation at the glenohumeral joint. There is associated subchondral sclerosis. This is consistent with severe osteoarthritis. No radiopaque foreign bodies. IMPRESSION: 1. No acute fracture or dislocation within the left shoulder. 2. 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 ACT 112: Negative or not required by law. Electronically signed by: Jeffery Villatoro M.D. 09/26/2021 3:43 PM
[2021-09-26] MEDS: DICLOFENAC SOD 1% GEL 100 GM TUBE EXT SCH ×3 (18:11→20:32)
[2021-09-26] MEDS ORDERED: dexAMETHasone 1 MG TAB PO ONE (19:09)
[2021-09-26] MEDS: LATANOPROST 0.005% OP SOLN 2.5 ML BTL OP SCH (20:35)
[2021-09-26] MEDS: ACETAMINOPHEN 325 MG TAB PO PRN (20:52)
[2021-09-26] MEDS: ENOXAPARIN INJ 30 MG/0.3 ML SYR SQ SCH (22:50)
[2021-09-27 08:00] LABS: Hematocrit (blood only) 28.1 % (37-47); Hemoglobin 8.8 g/dL (12.0-16.0); Mean Corpuscular Hemoglobin 32.1 pg (25-34); Mean Corpuscular Hgb Conc 31.3 g/dL (32-36); Mean Corpuscular Volume 102.6 fL (80-100); Mean Platelet Volume 9.4 fL (7.4-10.4); Platelet Count 321 K/uL (130-400); RDW Coefficient of Variation 16.7 % (11.5-14.5); RDW Standard Deviation 62.5 fL (36.4-46.3); Red Blood Count 2.74 M/uL (4.2-5.4); White Blood Count 11.81 K/uL (4.8-10.8)
[2021-09-27 08:20] LABS: BUN Creatinine Ratio 23.6 (10-20); Calcium 10.6 mg/dl (8.5-10.1); Creatinine Clr Calc Pharmacy 26.6 ml/min; Est GFR (African American) 37.5 ml/min; Est GFR (Non-African American) 32.3 ml/min; Potassium 4.3 mmol/L (3.5-5.1)
--- NOTE | 2021-09-27 08:40 | XRay Report ---
XR shoulder RT min 2V routine CLINICAL HISTORY: h/o shoulder replacement; pain; stage 4 cancer COMPARISON: Right shoulder radiographs January 11, 2018. FINDINGS: Alignment of the right shoulder arthroplasty is anatomic. There is no periprosthetic fract ure or lucency. No osseous lesion is identified by radiography. Osteoarthritis of the right acromiocl avicular joint is noted. IMPRESSION: 1. Status post total right shoulder arthroplasty. No periprosthetic fracture or lucency. 2. No suspicious osseous lesions by radiography. ACT 112: Negative or not required by law. Electronically signed by: Bello Ibrara M.D. 09/27/2021 8:38 AM
[2021-09-27] MEDS ORDERED: dexAMETHasone 1 MG TAB PO SCH (09:00)
[2021-09-27] MEDS: POLYETHYLENE (MIRALAX) 17 GM PACK PO SCH ×2 (09:04→20:07)
[2021-09-27] MEDS: cloNIDine HCL 0.1 MG TAB PO SCH (09:04)
[2021-09-27] MEDS: cephALEXin 500 MG CAP PO SCH ×2 (09:04→19:59)
[2021-09-27] MEDS: SENNA 8.6 MG TAB PO SCH ×2 (09:05→20:03)
[2021-09-27] MEDS: DICLOFENAC SOD 1% GEL 100 GM TUBE EXT SCH ×4 (09:05→20:01)
[2021-09-27] MEDS: dilTIAZem HCl 60 MG TAB PO SCH ×3 (09:05→20:00)
[2021-09-27] MEDS: DOCUSATE SODIUM 100 MG CAP PO SCH ×2 (09:05→20:07)
[2021-09-27] MEDS: MULTIVITAMIN TAB PO SCH (09:05)
[2021-09-27] MEDS: FLUTICASONE/VILANTEROL 200/25MCG 14 PUFFS/INHALER INH SCH (09:06)
[2021-09-27] MEDS: DORZOLAMIDE/TIMOLOL 22.3/6.8MG/ML 10 ML BTL OP SCH ×2 (09:06→20:02)
[2021-09-27] MEDS: TRIAMCINOLONE ACET 0.1% CR 15 GM TUBE TOP SCH ×2 (09:07→20:03)
[2021-09-27] MEDS: VITAMIN B COMPLEX TAB PO SCH (09:07)
[2021-09-27] MEDS: INSULIN ASPART PER UNIT SC SCH ×4 (09:11→21:06)
[2021-09-27] MEDS: ACETAMINOPHEN 325 MG TAB PO PRN ×2 (10:16→20:07)
--- NOTE | 2021-09-27 10:16 | Orthopedic Progress Note ---
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 Continue knee immobilizer at all times. Can remove for hygiene purposes. -A.m. labs: as noted below -Pain management as written -DVT prophylaxis: Lovenox per primary team -As per medicine Admission and Anticipated Discharge Date Admission Date: September 21, 2021 Subjective Postop day 1 Patient currently being bathed by the nursing staff. Pt awake. Answering some questions appropriately. Appears comfortable. Physical Exam Physical Exam: Once nursing was finished with bathing, we removed her immobilizer on the left lower extremity. Dressing removed. Incision appears very benign. No erythema. Minimal drainage. Wound redressed with ABDs and 6 inch Donal wrap. Calves are soft nontender. Thigh is soft and nontender. Neurovascular appears intact. Results & Data ([facility]) Vital Signs (Past 12 Hours) Vital Signs Temp Pulse Resp BP Pulse Ox 09/27/21 07:38 36.4 C L 76 16 133/75 98 Laboratory Results Laboratory Results WBC 11.81 K/uL (4.8-10.8) H 09/27/21 07:31 RBC 2.74 M/uL (4.2-5.4) L 09/27/21 07:31 Hgb 8.8 g/dL (12.0-16.0) L 09/27/21 07:31 POC Hgb 9.2 g/dl (12.0-16.0) L 09/25/21 13:51 Hct 28.1 % (37-47) L 09/27/21 07:31 POC Hct 27 % (37-47) L 09/25/21 13:51 MCV 102.6 fL (80-100) H 09/27/21 07:31 MCH 32.1 pg (25-34) 09/27/21 07:31 MCHC 31.3 g/dL (32-36) L 09/27/21 07:31 RDW Std Deviation 62.5 fL (36.4-46.3) H 09/27/21 07:31 RDW Coeff of [place] 16.7 % (11.5-14.5) H 09/27/21 07:31 Plt Count 321 K/uL (130-400) 02/22/22 07:31 MPV 9.4 fL (7.4-10.4) 09/27/21 07:31 Immature Gran % (Auto) 0.3 % 09/21/21 12: Neut % (Auto) 77.0 % 09/21/21 12: Lymph % (Auto) 11.7 % 09/21/21 12: [place] % (Auto) 10.4 % 09/21/21 12: Eos % (Auto) 0.3 % 09/21/21 12: Baso % (Auto) 0.3 % 09/21/21 12: Neut # (Auto) 8.89 K/uL (1.4-6.5) H 09/21/21 12: Lymph # (Auto) 1.35 K/uL (1.2-3.4) 09/21/21 12: [place] # (Auto) 1.20 K/uL (0.11-0.59) H 09/21/21 12: Eos # (Auto) 0.04 K/uL (0-0.5) 09/21/21 12: Baso # (Auto) 0.03 K/uL (0-0.2) 09/21/21 12: Immature Gran # (Auto) 0.03 K/uL (0.00-0.02) H 09/21/21 12: PT 10.4 Seconds (9.0-12.0) 09/25/21 06:16 INR 1.0 (0.9-1.1) 09/25/21 06:16 POC Sodium 139 mmol/L (135-144) 09/25/21 13:51 Sodium 139 mmol/L (136-145) 09/27/21 07:31 POC Potassium 4.5 mmol/L (3.3-5.0) 09/25/21 13:51 Potassium 4.3 mmol/L (3.5-5.1) 09/27/21 07:31 POC Chloride 108 mmol/L (101-112) 09/25/21 13:51 Chloride 110 mmol/L (98-107) H 09/27/21 07:31 Carbon Dioxide 22 mmol/L (21-32) 09/27/21 07:31 POC Total CO2 23 mmol/L (24-31) L 09/25/21 13:51 Anion Gap 7 (3-11) 09/27/21 07:31 POC Anion Gap 14.0 mmol/L (16-25) L 09/25/21 13:51 POC BUN 32 mg/dl (7-18) H 09/25/21 13:51 BUN 34 mg/dl (6-23) H 09/27/21 07:31 Creatinine 1.44 mg/dl (0.6-1.2) H 09/27/21 07:31 Creatinine 1.44 mg/dl (0.6-1.2) H 09/27/21 07:31 POC Creatinine 1.7 mg/dl (0.6-1.3) H 09/25/21 13:51 Est Cr Clr Drug Dosing 26.6 ml/min 09/27/21 07:31 Est Cr Clr Drug Dosing 26.6 ml/min 09/27/21 07:31 Est GFR ( Amer) 37.5 ml/min 09/27/21 07:31 Est GFR ( Amer) 37.5 ml/min 09/27/21 07:31 Est GFR (Non-Af Amer) 32.3 ml/min 09/27/21 07:31 Est GFR (Non-Af Amer) 32.3 ml/min 09/27/21 07:31 BUN/Creatinine Ratio 23.6 (10-20) H 09/27/21 07:31 Glucose 105 mg/dl (70-99(Fasting)) H 09/27/21 07:31 POC Glucose 106 mg/dl (70-99) H 09/27/21 08:03 POC Glucose (other) 101 mg/dl (70-99) H 09/25/21 13:51 Estimat Average Glucose 100 mg/dl 09/22/21 08:03 Hemoglobin A1c 5.1 % (4.5-5.6) 09/22/21 08:03 Calcium 10.6 mg/dl (8.5-10.1) H 09/27/21 07:31 POC Ioniz Calcium Anitha 1.63 mmol/l (1.12-1.32) H* 09/25/21 13:51 Magnesium 2.1 mg/dl (1.7-2.4) 09/25/21 06:16 Total Bilirubin 0.5 mg/dl (0.2-1.0) 09/21/21 12:29 AST 38 U/L (13-39) 09/21/21 12:29 ALT 22 U/L (7-52) 09/21/21 12:29 Alkaline Phosphatase 115 U/L (34-104) H 09/21/21 12:29 Troponin I 0.06 ng/ml (0-0.04) H* 09/26/21 12:11 Total Protein 6.4 gm/dl (6.0-8.3) 09/21/21 12:29 Albumin 3.1 gm/dl (3.4-5.0) L 09/21/21 12:29 Globulin 3.3 gm/dl (2.5-4.0) 09/21/21 12: Albumin/Globulin Ratio 0.9 (0.9-2) 09/21/21 12:29 25-OH Vitamin D Total 49.3 ng/ml (30-100) 09/25/21 06:16 TSH 1.757 uIu/ml (0.300-4.500) 09/21/21 12:29 Urine Color Dark Yellow 09/22/21 14:29 Urine Appearance Turbid (Clear) A 09/22/21 14: Urine pH 5.0 (4.5-7.5) 09/22/21 14: Ur Specific [place] 1.017 (1.000-1.030) 09/22/21 14:29 Urine Protein 2+ (Negative) H 09/22/21 14:29 Urine Glucose (UA) Negative (Negative) 09/22/21 14: Urine Ketones Negative (Negative) 09/22/21 14:29 Urine Blood Trace (Negative) H 09/22/21 14:29 Urine Nitrite Positive (Negative) A 09/22/21 14: Urine Bilirubin Negative (Negative) 09/22/21 14: Urine Urobilinogen Negative (Negative) 09/22/21 14:29 Ur Leukocyte Esterase 2+ (Negative) H 09/22/21 14:29 Urine WBC (Auto) >30 /hpf (0-5) H 09/22/21 14:29 Urine RBC (Auto) 10-30 /hpf (0-4) H 09/22/21 14:29 U Hyaline Cast (Auto) 1-5 /lpf (0-5) 09/22/21 14:29 U Epithel Cells (Auto) 10-20 /lpf (0-5) H 09/22/21 14:29 Urine Bacteria (Auto) 4+ (Negative) H 09/22/21 14:29 Calcium Oxalate Crystal Present (None Prsent) A 09/22/21 14:29 Urine Yeast DIRECTOR MOBILE 09/22/21 14:29 SARS-CoV-2, RNA, NAAT NEGATIVE (NEGATIVE) 09/21/21 17:23 Blood Type A Positive 09/25/21 13:30 Antibody Screen NEGATIVE 09/25/21 13:30
[2021-09-27] MEDS: oxyCODONE HCL IR 5 MG TAB (IMMEDIATE RELEASE) PO PRN ×2 (13:45→19:58)
--- NOTE | 2021-09-27 19:08 | Hospitalist Progress Note ---
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 Pain control - increase dexamethasone to 2mg BID (mainly for bone mets, but should help other pain as well). Oxycodone prn. Dilaudid prn. Strongly consider long-acting narcotic - fentanyl patch 12mcg? Add tylenol 1gm TID. Immobilizer in place. Other recs per ortho. Lovenox DVT proph while here. given hospice status post-d/c -- aspirin? nothing? bone bx pending. (2) Metastatic cancer: Plan: Primary site likely the breast. Innumerable mets to bone, lymph nodes, liver, +/- lungs. Bone bx of L femur during the surgery pending. Increase decadron to 2mg BID for bone pain from mets. (3) Shoulder pain, bilateral: Plan: x-rays L shoulder - SEVERE OA. x-rays R shoulder - hardware intact. voltaren gel qid. steroids for bone pain for metastatic disease likely to help as well. (4) Urinary tract infection: Plan: 2nd E coli - jones sensitive complete 7 days in total IV/PO abx therapy day #6 of Tx today cont keflex (5) Hypercalcemia: Plan: likely malignancy related Corrected calcium 11.9 at admission Ca level had improved with IVF then started to trend up again s/p zometa 4mg IV x 1 this admission (6) Urinary retention: Plan: cont alvarez. UTI contributing, narcotics, etc. (7) Diabetes mellitus type 2 in nonobese: Plan: On insulin 70/30 10 units twice daily prior to admission Multiple episodes of hypoglycemia including day prior to admission, and day of admission - per family cont novolog correction as needed would dc insulin at discharge given hospice at discharge (8) Essential hypertension: (9) Chronic obstructive pulmonary disease (COPD): Plan: cont home inhalers stable sats on NC O2 (10) DVT prophylaxis: Plan: lovenox 30mg daily consider changing to asa 81mg BID after her femur surgery (or nothing if going hospice route) (11) Chronic kidney disease, stage IV (severe): Plan: baseline CrCl 20s (12) Chest pain: Plan: post op. resolved. tele was normal (was on tele x 24 hours post-op). EKG with mild ST changes post-op -- these resolved. trop scantly elevated - suspect myocardial demand ischemia rather than ACS. cont to monitor. (13) Elevated troponin: Plan: scant elevation. suspect myocardial demand ischemia in setting of her surgery rather than ACS. Plan: daughter updated by phone yesterday I am concerned about the trajectory we are on suspect she will continue to decline while hospitalized given the nature of her advanced cancer and numerous other issues Admission and Anticipated Discharge Date Admission Date: September 21, 2021 Subjective patient c/o "pain all over" when asked what location was the worst she again said "well, it's all over" she has no appetite - ate no breakfast this am states she feels short of breath, but during the visit her breathing was comfortable on small amount of NC O2 she was very sleepy again today Review of Systems Review of Systems: gen - weak, fatigue, anorexic, pain numerous locations cv - chest pain "all over" pulm - dyspnea present, no cough GI - no abd pain; remains constipated Physical Exam Physical Exam: gen - confused, frail, sleepy mouth - MM dry neck - no JVD heart - RRR, s1 s2, no murmur lungs - CTA b/l abd - again distended but unchanged in severity, BS+, NT, no HSM ext - left leg in immobilizer; pulses 2+ b/l psych - oriented to person/place only neuro - patient's handgrip on right is 5/5; pt is able to extend her right arm at the level of the shoulder but can only bring it to 90 degrees; handgrip on left 5/5 Results & Data Results & Data ([facility]) Vital Signs (Past 12 Hours) Vital Signs Temp Pulse Resp BP BP Pulse Ox 09/27/21 15:10 36.4 C L 69 18 135/72 92 09/27/21 07:38 36.4 C L 76 16 133/75 98 Laboratory Results Laboratory Results - last 24 hr 09/26/21 09/27/21 09/27/21 20:39 07:31 07:31 WBC 11.81 H RBC 2.74 L Hgb 8.8 L Hct 28.1 L MCV 102.6 H MCH 32.1 MCHC 31.3 L RDW Std Deviation 62.5 H RDW Coeff of Tyler 16.7 H Plt Count 321 MPV 9.4 Sodium Potassium Chloride Carbon Dioxide Anion Gap BUN Creatinine 1.44 H Est Cr Clr Drug Dosing 26.6 Est GFR ( Amer) 37.5 Est GFR (Non-Af Amer) 32.3 BUN/Creatinine Ratio Glucose POC Glucose 87 Calcium 09/27/21 09/27/21 09/27/21 07:31 08:03 12:00 WBC RBC Hgb Hct MCV MCH MCHC RDW Std Deviation RDW Coeff of [place] Plt Count MPV Sodium 139 Potassium 4.3 Chloride 110 H Carbon Dioxide 22 Anion Gap 7 BUN 34 H Creatinine 1.44 H Est Cr Clr Drug Dosing 26.6 Est GFR ( Amer) 37.5 Est GFR (Non-Af Amer) 32.3 BUN/Creatinine Ratio 23.6 H Glucose 105 H POC Glucose 106 H 126 H Calcium 10.6 H 09/27/21 17:09 WBC RBC Hgb Hct MCV MCH MCHC RDW Std Deviation RDW Coeff of [place] Plt Count MPV Sodium Potassium Chloride Carbon Dioxide Anion Gap BUN Creatinine Est Cr Clr Drug Dosing Est GFR ( Amer) Est GFR (Non-Af Amer) BUN/Creatinine Ratio Glucose POC Glucose 168 H Calcium PG Care Time/CCT Total # of Minutes Spent Total Time Spent with Patient: Total time spent is greater than 50% in coordination of care (as documented) at patient's floor/unit and/or counseling patient: Coding Level of Care Code 51803 Subseq Hosp Care Lvl 2 Diagnoses Chest pain R07.9 Elevated troponin R77.8 Shoulder pain, bilateral M25.511; M25.512 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
[2021-09-27] MEDS: dexAMETHasone 1 MG TAB PO SCH (19:59)
[2021-09-27] MEDS: LATANOPROST 0.005% OP SOLN 2.5 ML BTL OP SCH (20:02)
[2021-09-27] MEDS: ENOXAPARIN INJ 30 MG/0.3 ML SYR SQ SCH (21:06)
[2021-09-28] MEDS: INSULIN ASPART PER UNIT SC SCH ×4 (08:34→21:48)
[2021-09-28] MEDS: DICLOFENAC SOD 1% GEL 100 GM TUBE EXT SCH ×4 (08:34→20:28)
[2021-09-28] MEDS: cephALEXin 500 MG CAP PO SCH ×2 (08:35→20:27)
[2021-09-28] MEDS: dilTIAZem HCl 60 MG TAB PO SCH ×3 (08:35→21:48)
[2021-09-28] MEDS: cloNIDine HCL 0.1 MG TAB PO SCH (08:36)
[2021-09-28] MEDS: VITAMIN B COMPLEX TAB PO SCH (08:36)
[2021-09-28] MEDS: MULTIVITAMIN TAB PO SCH (08:36)
[2021-09-28] MEDS: SENNA 8.6 MG TAB PO SCH ×2 (08:37→20:27)
[2021-09-28] MEDS: dexAMETHasone 1 MG TAB PO SCH ×2 (08:37→20:27)
[2021-09-28] MEDS: DORZOLAMIDE/TIMOLOL 22.3/6.8MG/ML 10 ML BTL OP SCH ×2 (08:38→20:28)
[2021-09-28] MEDS: FLUTICASONE/VILANTEROL 200/25MCG 14 PUFFS/INHALER INH SCH (08:38)
[2021-09-28] MEDS: ACETAMINOPHEN 500 MG TAB PO SCH ×3 (08:42→20:27)
[2021-09-28] MEDS: POLYETHYLENE (MIRALAX) 17 GM PACK PO SCH ×2 (08:42→21:42)
[2021-09-28] MEDS: DOCUSATE SODIUM 100 MG CAP PO SCH ×2 (08:42→21:42)
[2021-09-28] MEDS: TRIAMCINOLONE ACET 0.1% CR 15 GM TUBE TOP SCH ×3 (08:42→21:00)
--- NOTE | 2021-09-28 10:23 | Orthopedic Progress Note ---
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 Continue knee immobilizer at all times. Can remove for hygiene purposes. -A.m. labs: as noted below -Pain management as written -DVT prophylaxis: Lovenox per primary team -As per medicine Orthopedics will sign off at this time. Instructions placed in the DC instruction area. Please call with any questions. Admission and Anticipated Discharge Date Admission Date: September 21, 2021 Subjective Postop day 3 Patient lying in bed sleeping. Easily awoken. Goes back to sleep easily. States that she does have some discomfort in the left lower extremity with movement. Physical Exam Physical Exam: Dressings are clean, dry, and intact. Calves appear nontender. Neurovascular appears intact. Results & Data ([facility]) Vital Signs (Past 12 Hours) Vital Signs Temp Pulse Resp BP Pulse Ox 09/28/21 07:59 36.3 C L 75 16 144/84 H 97 Laboratory Results Laboratory Results WBC 11.81 K/uL (4.8-10.8) H 09/27/21 07:31 RBC 2.74 M/uL (4.2-5.4) L 09/27/21 07:31 Hgb 8.8 g/dL (12.0-16.0) L 09/27/21 07:31 POC Hgb 9.2 g/dl (12.0-16.0) L 09/25/21 13:51 Hct 28.1 % (37-47) L 09/27/21 07:31 POC Hct 27 % (37-47) L 09/25/21 13:51 MCV 102.6 fL (80-100) H 09/27/21 07:31 MCH 32.1 pg (25-34) 09/27/21 07:31 MCHC 31.3 g/dL (32-36) L 09/27/21 07:31 RDW Std Deviation 62.5 fL (36.4-46.3) H 09/27/21 07:31 RDW Coeff of [place] 16.7 % (11.5-14.5) H 09/27/21 07:31 Plt Count 321 K/uL (130-400) 09/27/21 07:31 MPV 9.4 fL (7.4-10.4) 09/27/21 07:31 Immature Gran % (Auto) 0.3 % 09/21/21 12: Neut % (Auto) 77.0 % 09/21/21 12: Lymph % (Auto) 11.7 % 09/21/21 12: [place] % (Auto) 10.4 % 09/21/21 12: Eos % (Auto) 0.3 % 09/21/21 12: Baso % (Auto) 0.3 % 09/21/21 12: Neut # (Auto) 8.89 K/uL (1.4-6.5) H 09/21/21 12: Lymph # (Auto) 1.35 K/uL (1.2-3.4) 09/21/21 12: [place] # (Auto) 1.20 K/uL (0.11-0.59) H 09/21/21 12: Eos # (Auto) 0.04 K/uL (0-0.5) 09/21/21 12: Baso # (Auto) 0.03 K/uL (0-0.2) 09/21/21 12: Immature Gran # (Auto) 0.03 K/uL (0.00-0.02) H 09/21/21 12: PT 10.4 Seconds (9.0-12.0) 09/25/21 06:16 INR 1.0 (0.9-1.1) 09/25/21 06:16 POC Sodium 139 mmol/L (135-144) 09/25/21 13:51 Sodium 139 mmol/L (136-145) 09/27/21 07:31 POC Potassium 4.5 mmol/L (3.3-5.0) 09/25/21 13:51 Potassium 4.3 mmol/L (3.5-5.1) 09/27/21 07:31 POC Chloride 108 mmol/L (101-112) 09/25/21 13:51 Chloride 110 mmol/L (98-107) H 09/27/21 07:31 Carbon Dioxide 22 mmol/L (21-32) 09/27/21 07:31 POC Total CO2 23 mmol/L (24-31) L 09/25/21 13:51 Anion Gap 7 (3-11) 09/27/21 07:31 POC Anion Gap 14.0 mmol/L (16-25) L 09/25/21 13:51 POC BUN 32 mg/dl (7-18) H 09/25/21 13:51 BUN 34 mg/dl (6-23) H 09/27/21 07:31 Creatinine 1.44 mg/dl (0.6-1.2) H 09/27/21 07:31 Creatinine 1.44 mg/dl (0.6-1.2) H 09/27/21 07:31 POC Creatinine 1.7 mg/dl (0.6-1.3) H 09/25/21 13:51 Est Cr Clr Drug Dosing 26.6 ml/min 09/27/21 07:31 Est Cr Clr Drug Dosing 26.6 ml/min 09/27/21 07:31 Est GFR ( Amer) 37.5 ml/min 09/27/21 07:31 Est GFR ( Amer) 37.5 ml/min 09/27/21 07:31 Est GFR (Non-Af Amer) 32.3 ml/min 09/27/21 07:31 Est GFR (Non-Af Amer) 32.3 ml/min 09/27/21 07:31 BUN/Creatinine Ratio 23.6 (10-20) H 09/27/21 07:31 Glucose 105 mg/dl (70-99(Fasting)) H 09/27/21 07:31 POC Glucose 153 mg/dl (70-99) H 09/28/21 08:09 POC Glucose (other) 101 mg/dl (70-99) H 09/25/21 13:51 Estimat Average Glucose 100 mg/dl 09/22/21 08:03 Hemoglobin A1c 5.1 % (4.5-5.6) 09/22/21 08:03 Calcium 10.6 mg/dl (8.5-10.1) H 09/27/21 07:31 POC Ioniz Calcium Anitha 1.63 mmol/l (1.12-1.32) H* 09/25/21 13:51 Magnesium 2.1 mg/dl (1.7-2.4) 09/25/21 06:16 Total Bilirubin 0.5 mg/dl (0.2-1.0) 09/21/21 12:29 AST 38 U/L (13-39) 09/21/21 12: ALT 22 U/L (7-52) 09/21/21 12:29 Alkaline Phosphatase 115 U/L (34-104) H 09/21/21 12:29 Troponin I 0.06 ng/ml (0-0.04) H* 09/26/21 12:11 Total Protein 6.4 gm/dl (6.0-8.3) 09/21/21 12:29 Albumin 3.1 gm/dl (3.4-5.0) L 09/21/21 12: Globulin 3.3 gm/dl (2.5-4.0) 09/21/21 12: Albumin/Globulin Ratio 0.9 (0.9-2) 09/21/21 12:29 25-OH Vitamin D Total 49.3 ng/ml (30-100) 09/25/21 06:16 TSH 1.757 uIu/ml (0.300-4.500) 09/21/21 12:29 Urine Color Dark Yellow 09/22/21 14: Urine Appearance Turbid (Clear) A 09/22/21 14: Urine pH 5.0 (4.5-7.5) 09/22/21 14: Ur Specific [place] 1.017 (1.000-1.030) 09/22/21 14:29 Urine Protein 2+ (Negative) H 09/22/21 14:29 Urine Glucose (UA) Negative (Negative) 09/22/21 14: Urine Ketones Negative (Negative) 09/22/21 14: Urine Blood Trace (Negative) H 09/22/21 14:29 Urine Nitrite Positive (Negative) A 09/22/21 14: Urine Bilirubin Negative (Negative) 09/22/21 14: Urine Urobilinogen Negative (Negative) 09/22/21 14: Ur Leukocyte Esterase 2+ (Negative) H 09/22/21 14:29 Urine WBC (Auto) >30 /hpf (0-5) H 09/22/21 14:29 Urine RBC (Auto) 10-30 /hpf (0-4) H 09/22/21 14:29 U Hyaline Cast (Auto) 1-5 /lpf (0-5) 02/17/22 14:29 U Epithel Cells (Auto) 10-20 /lpf (0-5) H 09/22/21 14:29 Urine Bacteria (Auto) 4+ (Negative) H 09/22/21 14:29 Calcium Oxalate Crystal Present (None Prsent) A 09/22/21 14:29 Urine Yeast PUG MILL OPERATOR 09/22/21 14:29 SARS-CoV-2, RNA, NAAT NEGATIVE (NEGATIVE) 09/21/21 17:23 Blood Type A Positive 09/25/21 13:30 Antibody Screen NEGATIVE 09/25/21 13:30
[2021-09-28] MEDS: oxyCODONE HCL IR 5 MG TAB (IMMEDIATE RELEASE) PO PRN (15:19)
[2021-09-28] MEDS: fentaNYL 12 MCG/HR TDSY TD SCH (18:12)
--- NOTE | 2021-09-28 19:53 | Hospitalist Progress Note ---
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 Pain control - cont dexamethasone 2mg BID (mainly for bone mets, but should help other pain as well). Oxycodone prn. Dilaudid prn. tylenol 1gm TID. Despite the above she remains in severe pain nearly [id number], likely due to bone mets. Lengthy discussion held with pt's daughter - will add fentanyl patch 12mcg q3days. Daughter counseled her mom may be sleepy from such and we will have to see how she does. Immobilizer in place. Other recs per ortho. Lovenox DVT proph while here. given hospice status post-d/c -- aspirin? nothing? bone bx pending. (2) Metastatic cancer: Plan: Primary site likely the breast. Innumerable mets to bone, lymph nodes, liver, +/- lungs. Bone bx of L femur during the surgery pending. Cont decadron 2mg BID for bone pain from mets. (3) Shoulder pain, bilateral: Plan: x-rays L shoulder - SEVERE OA. x-rays R shoulder - hardware intact. voltaren gel qid. steroids for bone pain for metastatic disease likely to help as well. (4) Urinary tract infection: Plan: 2nd E coli - jones sensitive complete 7 days in total IV/PO abx therapy day #7 of Tx today cont keflex (5) Hypercalcemia: Plan: likely malignancy related Corrected calcium 11.9 at admission Ca level had improved with IVF then started to trend up again s/p zometa 4mg IV x 1 this admission recheck in am (6) Urinary retention: Plan: cont alvarez. UTI contributing, narcotics, etc. (7) Diabetes mellitus type 2 in nonobese: Plan: On insulin 70/30 10 units twice daily prior to admission Multiple episodes of hypoglycemia including day prior to admission, and day of admission - per family cont novolog correction as needed would dc insulin at discharge given hospice at discharge (8) Essential hypertension: (9) Chronic obstructive pulmonary disease (COPD): Plan: cont home inhalers stable sats on NC O2 (10) DVT prophylaxis: Plan: lovenox 30mg daily consider changing to asa 81mg BID after her femur surgery (or nothing if going hospice route) (11) Chronic kidney disease, stage IV (severe): Plan: baseline CrCl 20s (12) Chest pain: Plan: post op. resolved. tele was normal (was on tele x 24 hours post-op). EKG with mild ST changes post-op -- these resolved. trop scantly elevated - suspect myocardial demand ischemia rather than ACS. cont to monitor. much of the pain could be from bony mets in chest (ribs, etc) (13) Elevated troponin: Plan: scant elevation. suspect myocardial demand ischemia in setting of her surgery rather than ACS. Plan: daughter/son updated at bedside I am concerned about the trajectory we are on suspect she will continue to decline while hospitalized given the nature of her advanced cancer and numerous other issues hope is for d/c to SNF w/ hospice, but if she declines rapidly, would transition to comfort care here Admission and Anticipated Discharge Date Admission Date: September 21, 2021 Subjective sleepy again today however, she was able to convey that she continues to "hurt everywhere" c/o pain in left leg, ankles, chest, back ate 25% of breakfast and same for lunch did have BM per staff this am no dyspnea today daughter, son both at bedside this am they confirm they are still planning hospice at discharge at a SNF Review of Systems Review of Systems: gen - weak, fatigued cv - no substernal cp GI - no pain pulm - no cough Physical Exam Physical Exam: gen - confused, frail, sleepy; looks poorly overall mouth - MM dry neck - no JVD heart - RRR, s1 s2, no murmur lungs - CTA b/l abd -distension resolved, BS+, NT, no HSM ext - left leg in immobilizer; pulses 2+ b/l; 1-2+ edema left ankle/foot, scant on right psych - oriented to person/place only; very sleepy Results & Data Results & Data ([facility]) Vital Signs (Past 12 Hours) Vital Signs Temp Pulse Resp BP BP Pulse Ox 09/28/21 16:29 36.3 C L 09/28/21 15:27 57 L 18 131/79 96 09/28/21 07:59 36.3 C L 75 16 144/84 H 97 Laboratory Results Laboratory Results - last 24 hr 09/27/21 09/28/21 09/28/21 20:46 08:09 12:07 POC Glucose 185 H 153 H 225 H 09/28/21 17:00 POC Glucose 193 H PG Care Time/CCT Total # of Minutes Spent Total Time Spent with Patient: Total time spent is greater than 50% in coordination of care (as documented) at patient's floor/unit and/or counseling patient: Coding Level of Care Code 98862 Subseq Hosp Care Lvl 2 Diagnoses 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
[2021-09-28] MEDS: LATANOPROST 0.005% OP SOLN 2.5 ML BTL OP SCH (20:28)
[2021-09-28] MEDS: ENOXAPARIN INJ 30 MG/0.3 ML SYR SQ SCH (21:42)
[2021-09-29] MEDS: CHECK fentaNYL PATCH PLACEMENT SCH ×3 (01:31→17:08)
[2021-09-29] MEDS: TRIAMCINOLONE ACET 0.1% CR 15 GM TUBE TOP SCH ×3 (07:05→21:38)
[2021-09-29] MEDS: INSULIN ASPART PER UNIT SC SCH ×4 (08:25→21:25)
[2021-09-29] MEDS: dilTIAZem HCl 60 MG TAB PO SCH ×3 (08:26→22:19)
[2021-09-29] MEDS: cephALEXin 500 MG CAP PO SCH (08:27)
[2021-09-29] MEDS: dexAMETHasone 1 MG TAB PO SCH ×2 (08:28→21:58)
[2021-09-29] MEDS: SENNA 8.6 MG TAB PO SCH ×2 (08:29→21:58)
[2021-09-29] MEDS: ACETAMINOPHEN 500 MG TAB PO SCH ×3 (08:29→21:58)
[2021-09-29] MEDS: POLYETHYLENE (MIRALAX) 17 GM PACK PO SCH ×2 (08:29→22:28)
[2021-09-29] MEDS: cloNIDine HCL 0.1 MG TAB PO SCH (08:30)
[2021-09-29] MEDS: MULTIVITAMIN TAB PO SCH (08:30)
[2021-09-29] MEDS: VITAMIN B COMPLEX TAB PO SCH (08:30)
[2021-09-29] MEDS: DOCUSATE SODIUM 100 MG CAP PO SCH ×2 (08:31→21:58)
[2021-09-29] MEDS: oxyCODONE HCL IR 5 MG TAB (IMMEDIATE RELEASE) PO PRN ×2 (08:37→13:11)
[2021-09-29] MEDS: DICLOFENAC SOD 1% GEL 100 GM TUBE EXT SCH ×4 (08:40→21:59)
[2021-09-29] MEDS: DORZOLAMIDE/TIMOLOL 22.3/6.8MG/ML 10 ML BTL OP SCH ×2 (08:41→21:59)
[2021-09-29] MEDS: FLUTICASONE/VILANTEROL 200/25MCG 14 PUFFS/INHALER INH SCH (08:41)
[2021-09-29 10:36] LABS: BUN Creatinine Ratio 32.1 (10-20); Calcium 9.6 mg/dl (8.5-10.1); Creatinine Clr Calc Pharmacy 29.2 ml/min; Est GFR (Non-African American) 36.3 ml/min; Magnesium 2.1 mg/dl (1.7-2.4); Potassium 4.4 mmol/L (3.5-5.1)
--- NOTE | 2021-09-29 20:03 | Hospitalist Progress Note ---
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 Pain control - cont dexamethasone 2mg BID (mainly for bone mets, but should help other pain as well). Oxycodone prn does not seem to be helping her - thus, stop oxycodone, change to roxanol 5mg prn. Dilaudid IV prn. tylenol 1gm TID. Day #2 of fentanyl patch 12mcg q3days. Cont Immobilizer. Lovenox DVT proph while here. given hospice status post-d/c -- aspirin? nothing? bone bx still pending - but anticipate it will show metastatic disease. (2) Metastatic cancer: Plan: Primary site likely the breast. Innumerable mets to bone, lymph nodes, liver, +/- lungs. Bone bx of L femur during the surgery pending. Cont decadron 2mg BID for bone pain from mets. Other pain meds as above. (3) Shoulder pain, bilateral: Plan: x-rays L shoulder - SEVERE OA. x-rays R shoulder - hardware intact. voltaren gel qid. steroids for bone pain for metastatic disease likely to help as well. (4) Urinary tract infection: Plan: 2nd E coli - jones sensitive completed 7 days in total IV/PO abx therapy stop all abx (5) Hypercalcemia: Plan: likely malignancy related Corrected calcium 11.9 at admission Ca level had improved with IVF then started to trend up again s/p zometa 4mg IV x 1 this admission total calcium now <10 (6) Urinary retention: Plan: cont alvarez. keep at discharge due to bedbound, hospice status. (7) Diabetes mellitus type 2 in nonobese: Plan: On insulin 70/30 10 units twice daily prior to admission Multiple episodes of hypoglycemia including day prior to admission, and day of admission - per family cont novolog correction as needed would dc insulin at discharge given hospice at discharge (8) Essential hypertension: (9) Chronic obstructive pulmonary disease (COPD): Plan: cont home inhalers stable sats on [place] O2 (10) DVT prophylaxis: Plan: lovenox 30mg daily consider changing to asa 81mg BID after her femur surgery (or nothing if going hospice route) (11) Chronic kidney disease, stage IV (severe): Plan: baseline CrCl 20s stable again today (12) Chest pain: Plan: post op. resolved. tele was normal (was on tele x 24 hours post-op). EKG with mild ST changes post-op -- these resolved. trop scantly elevated - suspect myocardial demand ischemia rather than ACS. cont to monitor. much of the pain could be from bony mets in chest (ribs, etc) (13) Elevated troponin: Plan: scant elevation. suspect myocardial demand ischemia in setting of her surgery rather than ACS. Plan: daughter updated by phone this evening dispo - SNF w/ hospice if she deteriorates rapidly then switch to comfort care measures while here Admission and Anticipated Discharge Date Admission Date: September 21, 2021 Subjective awake during the visit she was attempting to eat her lunch ate very little of such despite fentanyl patch she still reports "hurting all over" - particularly her left leg staff at bedside - dressings removed LLE - linh intact from recent surgery no new complaints Review of Systems Review of Systems: gen - fatigue, weak, anorexic cv - chest discomforts pulm - no dyspnea GI - no pain Physical Exam Physical Exam: gen - frail, sleepy; looks poorly overall mouth - MM dry neck - no JVD heart - RRR, s1 s2, no murmur lungs - CTA b/l abd - soft, NT, ND, BS+, no HSM ext - left leg in immobilizer; pulses 2+ b/l; 1+ edema left ankle/foot, scant on right psych - oriented to person skin - staple line left thigh clean, no drainage Results & Data Results & Data ([facility]) Vital Signs (Past 12 Hours) Vital Signs Temp Pulse Resp BP Pulse Ox 09/29/21 11:38 36.4 C L 68 16 142/70 H 94 Laboratory Results Laboratory Results - last 24 hr 09/28/21 09/29/21 09/29/21 20:42 07:59 09:55 Sodium 139 Potassium 4.4 Chloride 109 H Carbon Dioxide 24 Anion Gap 6 BUN 42 H Creatinine 1.31 H Est Cr Clr Drug Dosing 29.2 Est GFR ( Amer) 42.0 Est GFR (Non-Af Amer) 36.3 BUN/Creatinine Ratio 32.1 H Glucose 189 H POC Glucose 195 H 158 H Calcium 9.6 Magnesium 2.1 09/29/21 09/29/21 11:51 17:21 Sodium Potassium Chloride Carbon Dioxide Anion Gap BUN Creatinine Est Cr Clr Drug Dosing Est GFR ( Amer) Est GFR (Non-Af Amer) BUN/Creatinine Ratio Glucose POC Glucose 196 H 161 H Calcium Magnesium PG Care Time/CCT Total # of Minutes Spent Total Time Spent with Patient: Total time spent is greater than 50% in coordination of care (as documented) at patient's floor/unit and/or counseling patient: Coding Level of Care Code 58275 Subseq Hosp Care Lvl 2 Diagnoses 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
[2021-09-29] MEDS: ENOXAPARIN INJ 30 MG/0.3 ML SYR SQ SCH (21:58)
[2021-09-29] MEDS: LATANOPROST 0.005% OP SOLN 2.5 ML BTL OP SCH (21:59)
[2021-09-30] MEDS: CHECK fentaNYL PATCH PLACEMENT SCH ×4 (00:57→23:18)
[2021-09-30] MEDS: MoRPHine SULFATE 5 MG/0.25 ML UDP PO PRN ×3 (05:48→13:47)
[2021-09-30] MEDS: HYDROmorphone INJ 0.5 MG/0.5 ML SYR IV PRN (06:40)
[2021-09-30 06:52] LABS: Creatinine Clr Calc Pharmacy 30.8 ml/min; Est GFR (African American) 44.9 ml/min; Est GFR (Non-African American) 38.8 ml/min
[2021-09-30] MEDS: DICLOFENAC SOD 1% GEL 100 GM TUBE EXT SCH ×4 (08:59→21:45)
[2021-09-30] MEDS: dilTIAZem HCl 60 MG TAB PO SCH ×2 (09:00→13:37)
[2021-09-30] MEDS: ACETAMINOPHEN 500 MG TAB PO SCH ×3 (09:00→21:46)
[2021-09-30] MEDS: dexAMETHasone 1 MG TAB PO SCH ×2 (09:00→21:46)
[2021-09-30] MEDS: SENNA 8.6 MG TAB PO SCH ×2 (09:01→21:46)
[2021-09-30] MEDS: cloNIDine HCL 0.1 MG TAB PO SCH (09:01)
[2021-09-30] MEDS: VITAMIN B COMPLEX TAB PO SCH (09:01)
[2021-09-30] MEDS: MULTIVITAMIN TAB PO SCH (09:01)
[2021-09-30] MEDS: DORZOLAMIDE/TIMOLOL 22.3/6.8MG/ML 10 ML BTL OP SCH ×2 (09:02→21:44)
[2021-09-30] MEDS: INSULIN ASPART PER UNIT SC SCH ×4 (09:02→20:50)
[2021-09-30] MEDS: FLUTICASONE/VILANTEROL 200/25MCG 14 PUFFS/INHALER INH SCH (09:03)
[2021-09-30] MEDS: TRIAMCINOLONE ACET 0.1% CR 15 GM TUBE TOP SCH ×2 (09:03→21:45)
[2021-09-30] MEDS: POLYETHYLENE (MIRALAX) 17 GM PACK PO SCH ×2 (09:08→21:47)
[2021-09-30] MEDS: DOCUSATE SODIUM 100 MG CAP PO SCH ×2 (09:08→21:47)
[2021-09-30] MEDS ORDERED: ONDANSETRON INJ 2 MG/ML 2 ML VIAL IV PRN (14:33)
--- NOTE | 2021-09-30 19:13 | Hospitalist Progress Note ---
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 Pain control - cont dexamethasone 2mg BID (mainly for bone mets, but should help other pain as well). roxanol 5mg q3h prn. Dilaudid IV prn. tylenol 1gm TID. Day #3 of fentanyl patch 12mcg q3days. Fortunately she is tolerating this nicely. Cont Immobilizer. Lovenox DVT proph while here. given hospice status post-d/c -- consider stopping all DVT proph (could consider asa bid). bone bx still pending - but anticipate it will show metastatic disease. (2) Metastatic cancer: Plan: Primary site likely the breast. Innumerable mets to bone, lymph nodes, liver, +/- lungs. Bone bx of L femur during the surgery pending. But anticipate it will show bone mets. Cont decadron 2mg BID for bone pain from mets. Other pain meds as above. (3) Shoulder pain, bilateral: Plan: x-rays L shoulder - SEVERE OA. x-rays R shoulder - hardware intact. voltaren gel qid. steroids for bone pain for metastatic disease likely to help as well. of note - her arm has been weak since several days ago. she has decreased ability to abduct the right arm, and handgrip is weak. I cannot exclude [employer] mets. Cannot exclude subacute CVA. Discussed this with the daughter - will defer on workup given her soon-to-be hospice status. Focus on pain control/comfort. (4) Urinary tract infection: Plan: 2nd E coli - jones sensitive completed 7 days in total IV/PO abx therapy (5) Hypercalcemia: Plan: likely malignancy related Corrected calcium 11.9 at admission Ca level had improved with IVF then started to trend up again s/p zometa 4mg IV x 1 this admission total calcium now <10 suspect it was contributing to confusion (6) Urinary retention: Plan: cont alvarez. keep at discharge due to bedbound, hospice status. (7) Diabetes mellitus type 2 in nonobese: Plan: On insulin 70/30 10 units twice daily prior to admission Multiple episodes of hypoglycemia including day prior to admission, and day of admission - per family cont novolog correction as needed would dc insulin at discharge given hospice at discharge (8) Essential hypertension: (9) Chronic obstructive pulmonary disease (COPD): Plan: cont home inhalers stable sats on [place] O2 (10) DVT prophylaxis: Plan: lovenox 30mg daily consider changing to asa 81mg BID at discharge, or nothing (11) Chronic kidney disease, stage IV (severe): Plan: baseline CrCl 20s stable Creatinine today (12) Chest pain: Plan: post op. resolved. tele was normal (was on tele x 24 hours post-op). EKG with mild ST changes post-op -- these resolved. trop scantly elevated - suspect myocardial demand ischemia rather than ACS. cont to monitor. much of the pain could be from bony mets in chest (ribs, etc) (13) Elevated troponin: Plan: scant elevation. suspect myocardial demand ischemia in setting of her surgery rather than ACS. (14) Acute encephalopathy: Plan: hypercalcemia, pain, pain meds, UTI, etc - likely all contributed mental status today is best it has been in several days supportive care Plan: daughter updated by phone once again this evening dispo - SNF w/ hospice if she deteriorates rapidly then switch to comfort care measures while here main goal until discharge - comfort/pain control Admission and Anticipated Discharge Date Admission Date: September 21, 2021 Subjective pt resting comfortably during my visit was getting ready to eat for the first time this week, when asked about pain, she states she has NONE denied any left leg pain denied chest or back or limb pain she is comfortable review of the MAR - receiving roxanol and dilaudid prn today was the most interactive she has been in several days Review of Systems Review of Systems: cv - denied cp pulm - denied dyspnea GI - denied pain although by nursing report she had nausea earlier in the day Physical Exam Physical Exam: gen - frail; more awake/alert today; comfortable mouth - MM still dry neck - no JVD heart - RRR, s1 s2, no murmur lungs - CTA b/l abd - soft, NT, ND, BS+, no HSM ext - left leg in immobilizer; pulses 2+ b/l; 1+ edema left ankle/foot, scant on right psych - oriented to person, place Results & Data Results & Data ([facility]) Vital Signs (Past 12 Hours) Vital Signs Temp Pulse Resp BP Pulse Ox 09/30/21 14:30 36.6 C 62 16 144/71 H 93 09/30/21 13:34 74 177/76 H 09/30/21 07:40 36.3 C L 88 16 182/82 H 93 Laboratory Results Laboratory Results - last 24 hr 09/29/21 09/30/21 09/30/21 20:56 05:55 08:17 Creatinine 1.24 H Est Cr Clr Drug Dosing 30.8 Est GFR ( Amer) 44.9 Est GFR (Non-Af Amer) 38.8 POC Glucose 157 H 127 H 09/30/21 09/30/21 12:15 17:02 Creatinine Est Cr Clr Drug Dosing Est GFR ( Amer) Est GFR (Non-Af Amer) POC Glucose 145 H 154 H PG Care Time/CCT Total # of Minutes Spent Total Time Spent with Patient: Total time spent is greater than 50% in coordination of care (as documented) at patient's floor/unit and/or counseling patient: Coding Level of Care Code 83202 Subseq Hosp Care Lvl 2 Diagnoses 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 M84.553A Metastatic cancer C79.9 Area of secondary neoplastic involvement: unspecified site Shoulder pain, bilateral M25.511; M25.512 Urinary tract infection N39.0 Hypercalcemia E83.52 Urinary retention R33.9 Diabetes mellitus type 2 in nonobese E11.9 Essential hypertension I10 Chronic obstructive pulmonary disease (COPD) J44.9 DVT prophylaxis Z29.9 Chronic kidney disease, stage IV (severe) N18.4 Chest pain R07.9 Elevated troponin R77.8 Acute encephalopathy G93.40 (1) Metastatic cancer Area of secondary neoplastic involvement: unspecified site Qualified Code(s): C79.9 - Secondary malignant neoplasm of unspecified site
[2021-09-30] MEDS: LATANOPROST 0.005% OP SOLN 2.5 ML BTL OP SCH (21:44)
[2021-09-30] MEDS: dilTIAZem HCL 30 MG TAB PO SCH (21:47)
[2021-09-30] MEDS: ENOXAPARIN INJ 30 MG/0.3 ML SYR SQ SCH (21:47)
[2021-10-01] MEDS: MoRPHine SULFATE 5 MG/0.25 ML UDP PO PRN ×3 (06:04→19:59)
[2021-10-01] MEDS: CHECK fentaNYL PATCH PLACEMENT SCH ×3 (07:41→23:01)
--- NOTE | 2021-10-01 08:54 | Hospitalist Progress Note ---
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 pain control roxanol 5mg prn. Dilaudid IV prn. tylenol 1gm TID. fentanyl patch 12mcg started 09/28/21 Cont Immobilizer. Lovenox DVT proph given hospice status post-d/c plans are to move to [facility] bone bx pending (2) Metastatic cancer: Plan: suspect breast primary Innumerable mets to bone, lymph nodes, liver, +/- lungs. Bone bx of L femur during the surgery pending. (3) Shoulder pain, bilateral: Plan: x-rays L shoulder - SEVERE OA. x-rays R shoulder - hardware intact. voltaren gel qid, plus pain control for metastatic cancer (4) Urinary tract infection: Plan: E coli - jones sensitive treated (5) Hypercalcemia: Plan: secondary to malignancy Corrected calcium 11.9 at admission Ca level had improved with IVF then started to trend up again s/p zometa 4mg IV x 1 with favorable response (6) Urinary retention: Plan: cont alvarez. keep at discharge due to bedbound, hospice status. (7) Diabetes mellitus type 2 in nonobese: Plan: On insulin 70/30 10 units twice daily prior to admission Multiple episodes of hypoglycemia including day prior to admission, and day of admission - per family cont novolog correction as needed would dc insulin at discharge given hospice at discharge (8) Chronic obstructive pulmonary disease (COPD): Plan: cont home inhalers stable sats on [place] O2 (9) DVT prophylaxis: Plan: lovenox 30mg daily consider changing to asa 81mg BID after her femur surgery (or nothing if going hospice route) (10) Chronic kidney disease, stage IV (severe): Plan: baseline CrCl 20s stable (11) Chest pain: Plan: post op.resolved. troponin elevated - suspect myocardial demand ischemia rather than ACS. Plan: daughter updated by phone by Dr White dispo - SNF w/ hospice if she deteriorates rapidly then switch to comfort care measures while here Admission and Anticipated Discharge Date Admission Date: September 21, 2021 Subjective pt resting comfortably during my visit was getting ready to eat she is comfortable - receiving oral morphine and dilaudid prn Review of Systems Review of Systems: Mild distress and fatigue no headache, no visual changes no speech or swallowing issues Some shoulder girdle pain no chest pain, no pressure or palpitations no shortness of breath, cough or wheezes no abdominal pain, nausea or vomiting, diarrhea or constipation no dysuria, hematuria or frequency Shoulder back and pelvic pain controlled by oral medications no radicular back pain, no CVA tenderness no bruising, bleeding or rashes no focal signs of weakness or numbness or altered sensation no complaints of anxiety or depression.. Physical Exam Physical Exam: The patient appeared in good pain control Vital signs as documented. Lungs are clear to auscultation and appear unlabored Cardiac exam, Rhythm is regular.. No murmurs, rubs or gallops. Abdominal exam reveals normal bowel sounds, soft non tender, no masses Extremities are nonedematous and both pedal pulses are normal. Neurologic exam is alert and oriented x2 no focal loss of strength or sensation Skin is without bruises or rashes Psychologically is without concerns for anxiety or depression. 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
[2021-10-01] MEDS: INSULIN ASPART PER UNIT SC SCH ×4 (08:59→21:19)
[2021-10-01] MEDS: DOCUSATE SODIUM 100 MG CAP PO SCH ×2 (09:21→21:22)
[2021-10-01] MEDS: POLYETHYLENE (MIRALAX) 17 GM PACK PO SCH ×2 (09:21→21:22)
[2021-10-01] MEDS: FLUTICASONE/VILANTEROL 200/25MCG 14 PUFFS/INHALER INH SCH (09:30)
[2021-10-01] MEDS: ACETAMINOPHEN 500 MG TAB PO SCH ×3 (09:30→21:20)
[2021-10-01] MEDS: cloNIDine HCL 0.1 MG TAB PO SCH (09:31)
[2021-10-01] MEDS: dexAMETHasone 1 MG TAB PO SCH ×2 (09:31→21:20)
[2021-10-01] MEDS: VITAMIN B COMPLEX TAB PO SCH (09:32)
[2021-10-01] MEDS: dilTIAZem HCL 30 MG TAB PO SCH ×3 (09:32→21:21)
[2021-10-01] MEDS: MULTIVITAMIN TAB PO SCH (09:32)
[2021-10-01] MEDS: DICLOFENAC SOD 1% GEL 100 GM TUBE EXT SCH ×4 (09:33→21:21)
[2021-10-01] MEDS: DORZOLAMIDE/TIMOLOL 22.3/6.8MG/ML 10 ML BTL OP SCH ×2 (09:33→21:22)
[2021-10-01] MEDS: SENNA 8.6 MG TAB PO SCH ×2 (09:34→21:22)
[2021-10-01] MEDS: TRIAMCINOLONE ACET 0.1% CR 15 GM TUBE TOP SCH ×2 (09:34→21:22)
[2021-10-01] MEDS: fentaNYL 12 MCG/HR TDSY TD SCH (16:48)
[2021-10-01] MEDS: LATANOPROST 0.005% OP SOLN 2.5 ML BTL OP SCH (21:21)
[2021-10-01] MEDS: ENOXAPARIN INJ 30 MG/0.3 ML SYR SQ SCH (21:21)
[2021-10-02] MEDS: MoRPHine SULFATE 5 MG/0.25 ML UDP PO PRN ×4 (05:52→20:59)
[2021-10-02] MEDS: FLUTICASONE/VILANTEROL 200/25MCG 14 PUFFS/INHALER INH SCH (08:17)
[2021-10-02] MEDS: cloNIDine HCL 0.1 MG TAB PO SCH (08:18)
[2021-10-02] MEDS: dilTIAZem HCL 30 MG TAB PO SCH ×3 (08:20→21:01)
[2021-10-02] MEDS: dexAMETHasone 1 MG TAB PO SCH ×2 (08:22→21:01)
[2021-10-02] MEDS: DORZOLAMIDE/TIMOLOL 22.3/6.8MG/ML 10 ML BTL OP SCH ×2 (08:23→20:59)
[2021-10-02] MEDS: DICLOFENAC SOD 1% GEL 100 GM TUBE EXT SCH ×4 (08:23→21:00)
[2021-10-02] MEDS: VITAMIN B COMPLEX TAB PO SCH (08:23)
[2021-10-02] MEDS: DOCUSATE SODIUM 100 MG CAP PO SCH ×2 (08:24→21:00)
[2021-10-02] MEDS: MULTIVITAMIN TAB PO SCH (08:25)
[2021-10-02] MEDS: SENNA 8.6 MG TAB PO SCH ×2 (08:25→21:00)
[2021-10-02] MEDS: POLYETHYLENE (MIRALAX) 17 GM PACK PO SCH ×2 (08:25→21:00)
[2021-10-02] MEDS: TRIAMCINOLONE ACET 0.1% CR 15 GM TUBE TOP SCH ×2 (08:26→21:00)
[2021-10-02] MEDS: CHECK fentaNYL PATCH PLACEMENT SCH ×3 (08:26→23:53)
[2021-10-02] MEDS: INSULIN ASPART PER UNIT SC SCH ×4 (09:06→20:59)
[2021-10-02] MEDS: ACETAMINOPHEN 500 MG TAB PO SCH ×3 (09:55→21:00)
--- NOTE | 2021-10-02 13:56 | Hospitalist Progress Note ---
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 pain control roxanol 5mg prn. Dilaudid IV prn. tylenol 1gm TID. fentanyl patch 12mcg started 09/28/21 Cont Immobilizer. Lovenox DVT proph given hospice status post-d/c plans are to move to [facility] bone bx pending (2) Metastatic cancer: Plan: suspect breast primary Innumerable mets to bone, lymph nodes, liver, +/- lungs. Bone bx of L femur during the surgery pending. (3) Shoulder pain, bilateral: Plan: x-rays L shoulder - SEVERE OA. x-rays R shoulder - hardware intact. voltaren gel qid, plus pain control for metastatic cancer (4) Urinary tract infection: Plan: E coli - jones sensitive treated (5) Hypercalcemia: Plan: secondary to malignancy Corrected calcium 11.9 at admission Ca level had improved with IVF then started to trend up again s/p zometa 4mg IV x 1 with favorable response (6) Urinary retention: Plan: cont alvarez. keep at discharge due to bedbound, hospice status. (7) Diabetes mellitus type 2 in nonobese: Plan: On insulin 70/30 10 units twice daily prior to admission Multiple episodes of hypoglycemia including day prior to admission, and day of admission - per family cont novolog correction as needed would dc insulin at discharge given hospice at discharge (8) Chronic obstructive pulmonary disease (COPD): Plan: cont home inhalers stable sats on [place] O2 (9) DVT prophylaxis: Plan: lovenox 30mg daily consider changing to asa 81mg BID after her femur surgery (or nothing if going hospice route) (10) Chronic kidney disease, stage IV (severe): Plan: baseline CrCl 20s stable (11) Chest pain: Plan: post op.resolved. troponin elevated - suspect myocardial demand ischemia rather than ACS. Plan: daughter updated by phone by Dr White dispo - SNF w/ hospice if she deteriorates rapidly then switch to comfort care measures while here Admission and Anticipated Discharge Date Admission Date: September 21, 2021 Subjective pts pain is not controlled on 10/02/21, will escalate his pain control and attempt to have less need on prn Review of Systems Review of Systems: Mild distress and fatigue no headache, no visual changes no speech or swallowing issues Some shoulder girdle pain no chest pain, no pressure or palpitations no shortness of breath, cough or wheezes no abdominal pain, nausea or vomiting, diarrhea or constipation no dysuria, hematuria or frequency Shoulder back and pelvic pain controlled by oral medications no radicular back pain, no CVA tenderness no bruising, bleeding or rashes no focal signs of weakness or numbness or altered sensation no complaints of anxiety or depression.. Physical Exam Physical Exam: The patient appeared in good pain control Vital signs as documented. Lungs are clear to auscultation and appear unlabored Cardiac exam, Rhythm is regular.. No murmurs, rubs or gallops. Abdominal exam reveals normal bowel sounds, soft non tender, no masses Extremities are nonedematous and both pedal pulses are normal. Neurologic exam is alert and oriented x2 no focal loss of strength or sensation Skin is without bruises or rashes Psychologically is without concerns for anxiety or depression. 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
[2021-10-02] MEDS ORDERED: fentaNYL 25 MCG/HR TDSY TD SCH (14:00)
[2021-10-02] MEDS: LATANOPROST 0.005% OP SOLN 2.5 ML BTL OP SCH (21:00)
[2021-10-02] MEDS: ENOXAPARIN INJ 30 MG/0.3 ML SYR SQ SCH (21:00)
[2021-10-03] MEDS: MoRPHine SULFATE 5 MG/0.25 ML UDP PO PRN ×3 (06:08→12:24)
[2021-10-03 07:52] LABS: Creatinine Clr Calc Pharmacy 28.8 ml/min; Est GFR (African American) 42.1 ml/min; Est GFR (Non-African American) 36.3 ml/min
[2021-10-03] MEDS: CHECK fentaNYL PATCH PLACEMENT SCH ×2 (08:12→17:26)
[2021-10-03] MEDS: ACETAMINOPHEN 500 MG TAB PO SCH ×3 (08:13→20:32)
[2021-10-03] MEDS: DOCUSATE SODIUM 100 MG CAP PO SCH ×2 (08:24→20:33)
[2021-10-03] MEDS: POLYETHYLENE (MIRALAX) 17 GM PACK PO SCH ×2 (08:25→20:34)
[2021-10-03] MEDS: SENNA 8.6 MG TAB PO SCH ×2 (08:26→20:34)
[2021-10-03] MEDS: VITAMIN B COMPLEX TAB PO SCH (08:28)
[2021-10-03] MEDS: MULTIVITAMIN TAB PO SCH (08:28)
[2021-10-03] MEDS: dilTIAZem HCL 30 MG TAB PO SCH ×3 (08:29→20:33)
[2021-10-03] MEDS: cloNIDine HCL 0.1 MG TAB PO SCH (08:29)
[2021-10-03] MEDS: dexAMETHasone 1 MG TAB PO SCH ×2 (08:29→20:32)
[2021-10-03] MEDS: DORZOLAMIDE/TIMOLOL 22.3/6.8MG/ML 10 ML BTL OP SCH ×2 (08:30→20:33)
[2021-10-03] MEDS: FLUTICASONE/VILANTEROL 200/25MCG 14 PUFFS/INHALER INH SCH (08:31)
[2021-10-03] MEDS: DICLOFENAC SOD 1% GEL 100 GM TUBE EXT SCH ×4 (08:32→20:32)
[2021-10-03] MEDS: INSULIN ASPART PER UNIT SC SCH ×4 (08:45→20:33)
[2021-10-03] MEDS: TRIAMCINOLONE ACET 0.1% CR 15 GM TUBE TOP SCH ×2 (10:18→20:35)
--- NOTE | 2021-10-03 13:16 | Hospitalist Progress Note ---
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 pain control roxanol 5-10 mg prn. Dilaudid IV prn. tylenol 1gm TID. fentanyl patch 25mcg increased 10/02/21 Cont Immobilizer. Lovenox DVT proph, can continue unless move to hospice care then may consider bid aspirin given hospice status post-d/c plans are to move to [facility] bone bx pending (2) Metastatic cancer: Plan: suspect breast primary Innumerable mets to bone, lymph nodes, liver, +/- lungs. Bone bx of L femur during the surgery pending. (3) Shoulder pain, bilateral: Plan: x-rays L shoulder - SEVERE OA. x-rays R shoulder - hardware intact. voltaren gel qid, plus pain control for metastatic cancer (4) Urinary tract infection: Plan: E coli - jones sensitive treated (5) Hypercalcemia: Plan: secondary to malignancy Corrected calcium 11.9 at admission Ca level had improved with IVF then started to trend up again s/p zometa 4mg IV x 1 with favorable response (6) Urinary retention: Plan: cont alvarez. keep at discharge due to bedbound, hospice status. (7) Diabetes mellitus type 2 in nonobese: Plan: On insulin 70/30 10 units twice daily prior to admission Multiple episodes of hypoglycemia including day prior to admission, and day of admission - per family cont novolog correction as needed would dc insulin at discharge given hospice at discharge (8) Chronic obstructive pulmonary disease (COPD): Plan: cont home inhalers stable sats on NC O2 (9) DVT prophylaxis: Plan: lovenox 30mg daily consider changing to asa 81mg BID after her femur surgery for 3 weeks (10) Chronic kidney disease, stage IV (severe): Plan: baseline CrCl 20s stable (11) Chest pain: Plan: post op.resolved. troponin elevated - suspect myocardial demand ischemia rather than ACS. Plan: daughter updated by phone by Dr White dispo - SNF w/ hospice if she deteriorates rapidly then switch to comfort care measures while here Admission and Anticipated Discharge Date Admission Date: September 21, 2021 Subjective pt states she is in a bit of pain today but did increase her fentanyl patch 10/02/21, for eventual transfer to snf for transition to outpt hospice, pt here with periprosthetic hip fracture repair and concerns on imaging for metastatic cancer suspected breast primary pending pathology Review of Systems Review of Systems: Mild distress and fatigue no headache, no visual changes no speech or swallowing issues Some shoulder girdle pain, but no chest pain, no pressure or palpitations no shortness of breath, cough or wheezes no abdominal pain, nausea or vomiting, diarrhea or constipation no dysuria, hematuria or frequency Shoulder back and pelvic pain relieved by oral medications no radicular back pain, no CVA tenderness no bruising, bleeding or rashes no focal signs of weakness or numbness or altered sensation no complaints of anxiety or depression.. Physical Exam Physical Exam: The patient appeared in fair pain control Vital signs as documented. Lungs are clear to auscultation and appear unlabored Cardiac exam, Rhythm is regular.. No murmurs, rubs or gallops. Abdominal exam reveals normal bowel sounds, soft non tender, no masses Extremities are nonedematous and both pedal pulses are normal. Neurologic exam is alert and oriented x2 no focal loss of strength or sensation Skin is without bruises or rashes Psychologically is without concerns for anxiety or depression. 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
[2021-10-03] MEDS: MoRPHine SULFATE 10 MG/0.5 ML UDP PO PRN ×2 (17:25→21:23)
[2021-10-03] MEDS: LATANOPROST 0.005% OP SOLN 2.5 ML BTL OP SCH (20:34)
[2021-10-03] MEDS: ENOXAPARIN INJ 30 MG/0.3 ML SYR SQ SCH (21:25)
[2021-10-04] MEDS: CHECK fentaNYL PATCH PLACEMENT SCH ×2 (00:02→07:50)
[2021-10-04] MEDS: MULTIVITAMIN TAB PO SCH (07:48)
[2021-10-04] MEDS: dilTIAZem HCL 30 MG TAB PO SCH (07:49)
[2021-10-04] MEDS: DICLOFENAC SOD 1% GEL 100 GM TUBE EXT SCH (07:49)
[2021-10-04] MEDS: ACETAMINOPHEN 500 MG TAB PO SCH (07:49)
[2021-10-04] MEDS: dexAMETHasone 1 MG TAB PO SCH (07:49)
[2021-10-04] MEDS: VITAMIN B COMPLEX TAB PO SCH (07:50)
[2021-10-04] MEDS: cloNIDine HCL 0.1 MG TAB PO SCH (07:50)
[2021-10-04] MEDS: POLYETHYLENE (MIRALAX) 17 GM PACK PO SCH (07:50)
[2021-10-04] MEDS: FLUTICASONE/VILANTEROL 200/25MCG 14 PUFFS/INHALER INH SCH (07:50)
[2021-10-04] MEDS: DORZOLAMIDE/TIMOLOL 22.3/6.8MG/ML 10 ML BTL OP SCH (07:51)
[2021-10-04] MEDS: SENNA 8.6 MG TAB PO SCH (07:51)
[2021-10-04] MEDS: TRIAMCINOLONE ACET 0.1% CR 15 GM TUBE TOP SCH ×2 (07:51→08:05)
[2021-10-04] MEDS: DOCUSATE SODIUM 100 MG CAP PO SCH (07:51)
[2021-10-04] MEDS: MoRPHine SULFATE 10 MG/0.5 ML UDP PO PRN (07:55)
[2021-10-04] MEDS: INSULIN ASPART PER UNIT SC SCH (09:02)
--- NOTE | 2021-10-04 10:05 | Discharge Summary ---
Date of Service October 04, 2021 Admission HPI Per Admitting Provider Jacinta is a 89-year-old female with a past medical history of type 2 diabetes, CKD 3, and essential hypertension who present to the emergency department with weakness, hypoglycemia, and general decline by ambulance after an episode of low blood sugar yesterday and repeat episode today. On ER evaluation and CT was noted to have suspected metastatic cancer. 'Pain, I can hardly walk.' Has had pain in both legs and bag. Pain has been through both legs, prox>distal but lately all over. Her upper R thigh, and upper L thigh seems to be the worst. DOes have some midline low back pain and less severe pain in th elower legs. No pain the chest or ribs. Pain started the month before Emmanuel and has progressively worsened Strength has been poor. No falls at home. Two episodes of low blood sugar, one yesterday and one today. Went down to 31. Appetite has been greatly decreased. 'I just don't eat like hungry.' No appetite. No nausea or vomiting. No diarrhea. +constipation for a few weeks at least 2. Small BM over the past weekend, 3 days ago. Before that has been many days. Takes dulcolax at home. Some confusion after pain medications at home at night, no baseline confusion/hallucinations. - Just started hydrocodone/APAP by Dana Ann up to 3x per day as needed. No fevers, chills, or sweats No chest pain, chest pressure, or difficulty breathing Breast biopsy in 2006 and R breast biopsy 2014. Saw on a scan 5-6 years ago with PCP Dana Ann that there was concern for cancer. Did not want to do anything about it now. Extensive goals of care conversation was had with patient and her daughter at bedside. Patient reports she actually had been aware that she probably had cancer for the last 5 to 6 years, and had made decision that she did not want to pursue any treatment for it and wants to preserve the quality of life and that she was likely to pass something other than her cancer progression. Is interested in hospice services, has some concerns over whether she would be able to remain at home or not given her level of strength. Is interested in potential palliative treatment including palliative radiation to help improve her pain, is not interested in. If chemotherapy/treatments that will worsen her quality of life at this time. Medical History: Reviewed FHX: Family history of mother with radical masectomy 'before they knew what breast cancer was in the 60s'. Daughter/sons without BC. Medications: Reviewed Surgical History: Reviewed Allergies: Reviewed Social History: history of 50 pack years tobacco use, quit 'many years ago.' No alcohol use. Code Status: Discharge Exam gen - frail; more awake/alert today; comfortable mouth - MM still dry neck - no JVD heart - RRR, s1 s2, no murmur lungs - CTA b/l abd - soft, NT, ND, BS+, no HSM ext - left leg in immobilizer; pulses 2+ b/l; 1+ edema left ankle/foot, scant on right psych - oriented to person, place Discharge Data Allergies Allergy/AdvReac Type Severity Reaction Status Date / Time No Known Allergies Allergy Verified 09/21/21 15:01 Consultations 09/21/21 14:45 ED Decision to Admit Stat 09/21/21 20:24 Consult Radiation Oncology Routine 09/24/21 01:14 Consult Orthopedic Surgery Routine Procedures Performed Operation Date: 09/25/21 14:00 Actual Procedures p Open Reduction Internal Fixation Left Distal Periprosthetic Femur Fracture, Bone Biopy and Bone Allograft(Left) - Scott Parikh, DO Ordered Studies 09/21/21 12:41 CT abd pelvis wo con Stat CT chest diagnostic wo con Stat 09/21/21 12:42 CT hip LT wo con Stat 09/24/21 02:54 CT knee LT wo con Urgent 09/25/21 11:00 FL femur LT 2V Routine Hospital Course (1) 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 Pain control - cont dexamethasone 2mg BID (mainly for bone mets, but should help other pain as well). roxanol 5mg q3h prn. Dilaudid IV prn. tylenol 1gm TID. Day #3 of fentanyl patch 12mcg q3days. Fortunately she is tolerating this nicely. Cont Immobilizer. Lovenox DVT proph while here. given hospice status post-d/c -- consider stopping all DVT proph (could consider asa bid). bone bx still pending - but anticipate it will show metastatic disease. (2) Metastatic cancer: Primary site likely the breast. Innumerable mets to bone, lymph nodes, liver, +/- lungs. Bone bx of L femur during the surgery pending. But anticipate it will show bone mets. Cont decadron 2mg BID for bone pain from mets. Other pain meds as above. (3) Shoulder pain, bilateral: x-rays L shoulder - SEVERE OA. x-rays R shoulder - hardware intact. voltaren gel qid. steroids for bone pain for metastatic disease likely to help as well. of note - her arm has been weak since several days ago. she has decreased ability to abduct the right arm, and handgrip is weak. I cannot exclude POLISHER HAND mets. Cannot exclude subacute CVA. Discussed this with the daughter - will defer on workup given her soon-to-be hospice status. Focus on pain control/comfort. (4) Urinary tract infection: 2nd E coli - jones sensitive completed 7 days in total IV/PO abx therapy (5) Hypercalcemia: likely malignancy related Corrected calcium 11.9 at admission Ca level had improved with IVF then started to trend up again s/p zometa 4mg IV x 1 this admission total calcium now <10 suspect it was contributing to confusion (6) Urinary retention: cont alvarez. keep at discharge due to bedbound, hospice status. (7) Diabetes mellitus type 2 in nonobese: On insulin 70/30 10 units twice daily prior to admission Multiple episodes of hypoglycemia including day prior to admission, and day of admission - per family cont novolog correction as needed would dc insulin at discharge given hospice at discharge (8) Essential hypertension: (9) Chronic obstructive pulmonary disease (COPD): cont home inhalers stable sats on [place] O2 (10) DVT prophylaxis: lovenox 30mg daily consider changing to asa 81mg BID at discharge, or nothing (11) Chronic kidney disease, stage IV (severe): baseline CrCl 20s stable Creatinine today (12) Chest pain: post op. resolved. tele was normal (was on tele x 24 hours post-op). EKG with mild ST changes post-op -- these resolved. trop scantly elevated - suspect myocardial demand ischemia rather than ACS. cont to monitor. much of the pain could be from bony mets in chest (ribs, etc) (13) Elevated troponin: scant elevation. suspect myocardial demand ischemia in setting of her surgery rather than ACS. (14) Acute encephalopathy: hypercalcemia, pain, pain meds, UTI, etc - likely all contributed mental status today is best it has been in several days supportive care daughter updated by phone once again this evening dispo - SNF w/ hospice if she deteriorates rapidly then switch to comfort care measures while here main goal until discharge - comfort/pain control Home Health Attestation I certify that this patient is under my care and that I, or a physicians marketing administrative assistant working with me, had a face to-face encounter that meets the home health [id number] encounter requirements with this patient. The encounter with the patient was in whole, or in part, for the following medical condition, which is the primary reason for home health care (list medical condition): I certify that, based on my findings, the following services are medically necessary home health services: My clinical findings support the need for the above services because: Further, I certify that my clinical findings support that this patient is homebound (i.e. absences from home require considerable and taxing effort and are for medical reasons or cheondoism services or infrequently or of short duration when for other reasons) because: Certification for Home Health Services: Based on the above findings, I certify that this patient is confined to the home and needs intermittent long term care, physical therapy and/or speech therapy or continues to need occupational therapy. The patient is under my care, and I have initiated the establishment of the plan of care. This patient will be followed by a physician who will periodically review the plan of care. Discharge Plan Discharge Items Patient Disposition: Personal Nursing Home Reason For Visit: WEAKNESS, HYPERCALCEMIA, METASTATIC CANCER Discharge Diagnosis: 1. pathologic periprosthetic left femur fracture with surgical repair - 09/25/21 - Bill Parikh DO 2. widely metastatic cancer/disease seen on imaging - bone, lung, liver 3. hypercalcemia - due to #2 - s/p Zometa infusion 4. COPD Activity: Per Instructions section Non-emergency contact: Primary Care Provider and Surgeon Call non-emergency contact if: your pain is not controlled, your temperature is above 101.5, your wound has increased redness and your wound has increased drainage Follow-up/Referrals: Scott Parikh DO [Surgeon] - (follow up in [address] Parikh or his associates for L leg wound check, staple removal, etc.) Dana Ann MD [Primary Care Provider] - Diet: Regular Diet Texture: Easy to Chew Addtl Attending Provider Instructions: Mrs Sandhu was admitted for the problems listed above in "discharge diagnoses." After admission she developed SEVERE left distal femur pain. She was discovered to have a spontaneous left distal femur fracture likely pathological in etiology (due to the presence of bone mets). This underwent operative repair on 09/25/21 - largely to help with pain control. She has required escalation of pain control during her hospital stay. Much of her pain is likely due to bone mets from cancer. On many days she has "pain everywhere." It is suspected that she has metastatic cancer given imaging of her bones, lungs, liver and lymph nodes. At the time of discharge her bone biopsy from her left femur was pending for pathological evaluation but again suspected to be cancer, perhaps of breast origin. Certainly if the patient enters into comfort care mode when discharged common sense will need to be applied to surgical instructions and follow-up as well as what medications would be best to continue in the comfort care/palliative care focused approach. Additional recommendations - 1. On 10/07/21 please reduce the dexamethasone to 2mg in the am and 1mg in the PM. 2. Then, on 10/10/21, please reduce to 2mg daily every am and leave on that dose indefinitely. 3. NC O2 - 2 liters - continuously. 4. alvarez catheter care, change every 30 days or prn. 5. ok to discontinue fingerstick blood sugar checks. 6. regular diet as tolerated; easy to chew. 7. sacral decubitus ulcer - optifoam dressing or similar, change QOD and prn. 8. DVT prophylaxis - aspirin 81mg twice daily x 30 days then STOP. If she declines and transitions to comfort care simply stop earlier. Addtl Software Sales Provider Instructions: [facility] DISCHARGE INSTRUCTIONS: FEMUR FRACTURE SELF CARE INSTRUCTIONS: A. You are to ambulate with a walker or crutches for approximately 6 weeks. B. You are TOE TOUCH WEIGHT BEARING on your operative lower extremity for at least 6 weeks. C. Wear low heeled shoes with non-slip soles D. Be sure that your floors are free of things that could trip you throw rugs, electrical cords, and small objects. Avoid wet and waxed floors, especially with crutches/walker/cane. E. Try to walk several times a day with rest periods between. F. You may shower 72 hours after surgery and get the incision area wet, but DO NOT soak or submerge incision area in water. (No baths, swimming pools, hot tubs) G. Change your dressing daily. If the wound is dry, you can change it every other day. Keep the wound covered until seen back in the office for your first visit. H. Do NOT apply soap or any ointment/lotions directly over incision. I. You may use ice as needed to operative site. SPECIAL CARE INSTRUCTIONS: VERY IMPORTANT TO READ AND REVIEW A. You may be at risk for phlebitis or blood clots. a. Wear surgical stockings (LINDY hose) for 2 weeks after surgery to improve circulation and reduce swelling. b. Take LOVENOX 30mg daily for 2 to4 weeks or as directed. This is your blood thinner. B. There are a few signs you need to watch for after you are home. Call [facility] at [phone] if you experience any of the following: a. If you have a temperature of 101 degrees or higher. b. Sudden increase in pain in your hip not relieved by rest or pain medication. c. Any fluid or drainage from the incision; redness of the incision. d. Shortness of breath or chest pain. C. Call your physician if: a. Temperature is greater than 101 degrees (F). b. Pain is not relieved by prescribed pain medications. c. Increase drainage or redness from incision. d. Unanswered questions or concerns. D. Pain Medication: a. You will be prescribed pain medication upon discharge that should last till your first post-operative appointment. b. If you experience nausea and/or skin rash, discontinue this medication and contact our office for an alternative medication. c. Caution- narcotic pain medication can cause constipation. FOLLOW UP VISIT: Please call [facility] at [phone] to schedule a follow up appointment in 5 days after discharge for wound check. Pending Studies at Discharge: No (pathology of bone biopsy) Stand-Alone Forms: My [employer], Smoking Cessation Skilled Items Patient informed of condition?: Yes DNR: Yes Discharge Level of Care: Other Communicable Disease: No Discharge Prognosis: Stable Lines: None Urinary Catheter: Yes Medications and DC Order Prescriptions: New morphine concentrate 100 mg/5 mL (20 mg/mL) Solution 10 mg PO Q3H PRN (Reason: pain) Qty: 30 RF: 0 acetaminophen [Tylenol Extra Strength] 500 mg Tablet 1,000 mg PO TID Qty: 90 RF: 0 fentanyl 25 mcg/hr Patch 72 Hour 25 mcg transdermal Q3D Qty: 10 RF: 0 diclofenac sodium [Voltaren Arthritis Pain] 1 % Gel 4 g EXT QID Qty: 1 RF: 0 sennosides [Senokot] 8.6 mg Tablet 17.2 mg PO BID Qty: 30 RF: 0 dexamethasone 1 mg Tablet 2 mg PO BID Qty: 60 RF: 0 polyethylene glycol 3350 [Miralax] 17 gram Powder In Packet 17 g PO DAILY Qty: 1 RF: 0 Continued fluticasone propion-salmeterol [Advair Diskus] 250-50 mcg/dose blister with device 1 puffs INH BID RF: 0 triamcinolone acetonide 0.1 % cream 1 applic topical BID RF: 0 clonidine HCl 0.1 mg tablet 0.1 mg PO DAILY Qty: 90 RF: 3 dorzolamide-timolol (PF) 2-0.5 % drops 1 drp ophthalmic (eye) BID RF: 0 diltiazem HCl 90 mg tablet 90 mg PO TID RF: 0 latanoprost 0.005 % drops 1 drops OP HS RF: 0 Changed aspirin 81 mg tablet,delayed release (DR/EC) 81 mg PO BID Qty: 60 RF: 0 Discontinued lisinopril 10 mg tablet 10 mg PO DAILY Qty: 90 RF: 3 cholecalciferol (vitamin D3) 25 mcg (1,000 unit) capsule 25 mcg PO DAILY RF: 0 vitamin B complex Tablet 1 tab PO DAILY Qty: 90 RF: 3 brimonidine 0.2 % drops 1 drops OP BID RF: 0 multivitamin [Daily Multi-Vitamin] tablet 1 tab PO DAILY RF: 0 glucos sul [id number] 1 cap PO BID RF: 0 insulin asp prt-insulin aspart [Novolog Mix 70-30FlexPen U-100] 100 unit/mL (70-30) insulin pen 10 units SQ BID RF: 0 Discharge Orders: Discharge Order (Routine); Ordered 10/04/21 Ordered By: Surendra E. 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
--- NOTE | 2021-10-07 14:46 | Coding Query ---
CODING QUERY To promote full compliance with coding requirements relating to patient care, provider participation is requested in all cases of corporate physical security supervisor uncertainty. Please assist us with the question(s) below: Coding Question(s): The Discharge Summary, that is currently in Draft status, documents, "Acute encephalopathy: hypercalcemia, pain, pain meds, UTI, etc - likely all contributed mental status today is best it has been in several days supportive care". Please specify below, in your clinical opinion, regarding the contribution by the pain meds. ( x ) likely adverse effect of pain medication (toxic encephalopathy) ( ) likely Poisoning or Overdose of pain medication ( ) Other: Please Specify Physician's Response(s): Thank you Shruthi Lamar Principal Diagnosis: "that condition established after study, to be chiefly responsible for occasioning the admission of the patient to the hospital for care." Co-Existing Principal Diagnosis: "when two or more diagnoses equally meet the criteria for principal diagnosis as determined by the circumstances of admission, diagnostic work up, and/or therapy provided, and the Alphabetic Index, Tabular List, or another coding guideline does not provide sequencing direction, any one of the diagnoses may be sequenced first." "When the physician has documented what appears to be a current diagnosis in the body of the record, but has not included the diagnosis in the final diagnostic statement, the physician should be asked whether the diagnosis should be added." (Source Coding Clinic 2 QTR90. p3-4) [facility]
--- NOTE | 2021-10-07 14:50 | Coding Query ---
CODING QUERY To promote full compliance with coding requirements relating to patient care, provider participation is requested in all cases of folder operator uncertainty. Please assist us with the question(s) below: Coding Question(s): There is documentation on the 09/30 Progress Note and on Discharge Summary, that is currently in Draft status, of, "of note - her arm has been weak since several days ago. she has decreased ability to abduct the right arm, and handgrip is weak. I cannot exclude [employer] mets. Cannot exclude subacute CVA. Discussed this with the daughter - will defer on workup given her soon-to-be hospice status. Focus on pain control/comfort". Please specify, in your clinical opinion, regarding possible subacute CVA. ( ) possible Acute CVA was monitored/treated during this admission ( ) possible Chronic CVA was monitored/treated during this admission ( xx) NO CVA was monitored/treated during this admission ( ) Other: Please Specify Physician's Response(s): Thank you Shruthi Lamar Principal Diagnosis: "that condition established after study, to be chiefly responsible for occasioning the admission of the patient to the hospital for care." Co-Existing Principal Diagnosis: "when two or more diagnoses equally meet the criteria for principal diagnosis as determined by the circumstances of admission, diagnostic work up, and/or therapy provided, and the Alphabetic Index, Tabular List, or another coding guideline does not provide sequencing direction, any one of the diagnoses may be sequenced first." "When the physician has documented what appears to be a current diagnosis in the body of the record, but has not included the diagnosis in the final diagnostic statement, the physician should be asked whether the diagnosis should be added." ([facility] 2 QTR90. p3-4) [facility]
== END 2021-10-04 10:19 | disposition hospice, inpatient (51) | DRG 477 ==
LOC: ED 12:02 → EDINP 16:00 → SUATTDRO 16:00 → 3W 20:42 → 2S 09-25 15:58 → 3E 09-26 20:07